=== PATIENT | female | born 1975 | race Caucasian/White ===

== ENCOUNTER 2017-12-28 07:15 | Inpatient (IN) | payer MEDICAID ==
[~2017-12-28] VITALS: Ht 160 cm; Wt 67.1 kg
[2017-12-28] VITALS (18 sets, daily range): BP systolic 95–116; BP diastolic 59–82
[2017-12-28] MEDS ORDERED: normal saline 1000ML IV soln IVB ONE (07:30)
[2017-12-28 07:53] LABS: HEMOGLOBIN 8.5 g/dl (12.0-16.0); MEAN CORPUSCULAR HGB CONC 33.8 % (33.0-36.5); MEAN CORPUSCULAR VOLUME 88.6 FL (78-98); MEAN PLATELET VOLUME 10.2 FL (7.4-10.4); RED BLOOD COUNT 2.82 X10'6 (4.20-5.60); RED CELL DISTRIBUTION WIDTH 16.6 % (11.5-14.5); WHITE BLOOD COUNT 11.3 X10'3 (4.5-11.0)
[2017-12-28 08:06] LABS: PLATELET COUNT 44 X10'3 (140-440)
[2017-12-28 08:09] LABS: CLARITY,URINE CLOUDY (Clear); COLOR,URINE AMBER (Yellow); GLUCOSE, URINE NEGATIVE (Neg); KETONES,URINE TRACE mg/dl (Neg); LEUKOCYTE ESTERASE ,URINE MODERATE (Neg); NITRITES, URINE NEGATIVE (Neg); OCCULT BLOOD,URINE LARGE (Neg); PROTEIN,URINE 100 mg/dl (Neg)
[2017-12-28 08:11] LABS: UA COLLECTION TYPE STRAIGHT CATH
[2017-12-28 08:11] LABS: ALANINE AMINOTRANSFERASE 41 U/L (12-78); ALBUMIN 1.7 G/DL (3.4-5.0); ALKALINE PHOSPHATASE 300 IU/L (46-116); ANION GAP 16 (8-16); ASPARTATE AMINO TRANSFERASE 107 U/L (10-37); BILIRUBIN,TOTAL 4.7 MG/DL (0.1-1.0); BLOOD UREA NITROGEN 37 MG/DL (7-18); BUN/CREATININE RATIO 13.5 (6.6-38.0); CALCIUM 7.3 MG/DL (8.5-10.1); CHLORIDE 84 MMOL/L (99-107); CREATININE 2.75 MG/DL (0.40-0.90); GLUCOSE 92 MG/DL (70-104); SODIUM 121 MMOL/L (135-145); TOTAL CARBON DIOXIDE 21.5 MMOL/L (24-32); eGFR 19 ML/MIN
[2017-12-28 08:12] LABS: ALBUMIN/GLOBULIN RATIO 0.4 (1.1-1.5); TOTAL PROTEIN 5.7 G/DL (6.4-8.2)
[2017-12-28 08:13] LABS: ETHANOL < 0.010 GM/DL (0.0-0.010)
[2017-12-28 08:14] LABS: INR 1.9 INR; PARTIAL THROMBOPLASTIN TIME 44 SECONDS (22-32); PROTHROMBIN TIME 19.1 SECONDS (9.0-12.0)
[2017-12-28 08:15] LABS: POTASSIUM 1.7 MMOL/L (3.5-5.1)
[2017-12-28 08:15] LABS: BACTERIA,URINE 2+ /HPF (Neg); MUCUS STRANDS NONE SEEN /LPF (Neg); RBC,URINE 20-50 /HPF (0-2); SQUAMOUS EPITHELIAL CELL,UR FEW /LPF (FEW); WBC,URINE TNTC /HPF (0-4)
[2017-12-28 08:16] LABS: AMORPHOUS URATES 1+; WBC CLUMPS,URINE MODERATE /HPF (NEGATIVE)
[2017-12-28 08:19] LABS: URINE AMPHETAMINE SCREEN NEGATIVE (Neg); URINE BARBITUATE SCREEN NEGATIVE (Neg); URINE BENZODIAZEPINES SCREEN NEGATIVE (Neg); URINE CANNABINOID SCREEN NEGATIVE (Neg); URINE COCAINE SCREEN NEGATIVE (Neg); URINE METHADONE SCREEN NEGATIVE (Neg); URINE OPIATE SCREEN NEGATIVE (Neg); URINE PHENCYCLIDINE SCREEN NEGATIVE (Neg)
[2017-12-28] MEDS: potassium 10mEq/100ml NS w/LIDOcaine (10mg/bag) IV SCH ×2 (08:25→09:19)
[2017-12-28 08:32] LABS: TOTAL CELLS COUNTED 100
[2017-12-28 08:33] LABS: ANISOCYTOSIS 1+; HYPOCHROMASIA 1+; PLATELET ESTIMATE DECREASED; POLYCHROMASIA 1+; ROULEAUX 1+; TARGET CELLS 2+
[2017-12-28] MEDS ORDERED: 0.9 % SODIUM CHLORIDE 10 ML VIAL ONE (09:00)
[2017-12-28] MEDS ORDERED: etomidate 2mg/ml inj. ONE (09:00)
[2017-12-28] MEDS ORDERED: magnesium 4gm in 100ml NS 100 ML IV PRN (10:35)
[2017-12-28] MEDS ORDERED: potassium Cl 40MEQ/NS 500ml 500 ML IV PRN (10:35)
[2017-12-28] MEDS ORDERED: magnesium 1gm/100ml D5W IVPB 100 ML IV PRN (10:35)
[2017-12-28] MEDS ORDERED: thiamine 100mg/ml 2ml inj. IV ONE (10:35)
[2017-12-28] MEDS ORDERED: cefTRIAXone 1g/NS 100ml IVPB 100 ML IV SCH (10:50)
[2017-12-28 10:52] LABS: MAGNESIUM 1.3 MG/DL (1.5-2.4)
[2017-12-28 11:22] LABS: LIPASE < 50 U/L (73-393)
[2017-12-28] MEDS ORDERED: CefTRIAXone/D5W-Rocephin 1gm 50 ML IV ONE (11:22)
[2017-12-28 11:23] LABS: PHOSPHORUS 3.2 MG/DL (2.3-4.5)
[2017-12-28] MEDS: K, MAG and/or Phos replacement - Verify level? MC SCH (11:27)
[2017-12-28] MEDS ORDERED: normal saline 1000ml 1,000 ML IV ONE (12:15)
[2017-12-28] MEDS ORDERED: vancomycin/NS 1 GM ADD-VANTAGE 250 ML IV ONE (12:15)
[2017-12-28] MEDS ORDERED: NORepinephrine 8mg/ 250ml NS 250 ML IV ONE (12:24)
[2017-12-28] MEDS ORDERED: Lactulose Enema **for rectal use only RC PRN ×2 (12:30)
[2017-12-28] MEDS: normal saline 1000ml 1,000 ML IV SCH (12:55)
[2017-12-28] MEDS ORDERED: fentaNYL/PF 50MCG/1 ML 2ML syringe IV PRN (12:55)
[2017-12-28] MEDS ORDERED: NORepinephrine 8mg/ 250ml NS 250 ML IV PRN (13:18)
[2017-12-28] MEDS: FENTANYL-0.9 % NACL/PF 100 ML IV PRN (13:32)
[2017-12-28] MEDS ORDERED: piperacillin/tazo 3.375gm/50ml 50 ML IV SCH (14:00)
[2017-12-28] MEDS: potassium Cl 40MEQ/NS 500ml 500 ML IV PRN ×2 (14:02→18:00)
[2017-12-28] MEDS: octreotide inj. 1,250 MCG in normal saline 250ml IV soln 243.75 ML IV SCH (14:02)
[2017-12-28] MEDS: pantoprazole 40MG/NS 100ML BAG 100 ML IV SCH ×2 (14:20→20:19)
[2017-12-28 14:50] LABS: OXYGEN SATURATION (MIXED VEN) 68.2 % (60-80); PO2 MIXED VENOUS (TEMP COR) 39.1 mmHg (35-46)
[2017-12-28] MEDS: lactulose 20gm/30ml cup PO SCH ×2 (16:09→20:19)
[2017-12-28] MEDS ORDERED: BUSP10TA11 PO (18:25)
[2017-12-28] MEDS ORDERED: LEVO50TA66 PO (18:25)
[2017-12-28] MEDS ORDERED: PROP10TA10 PO (18:25)
[2017-12-28] MEDS ORDERED: FOLI0.4T2 PO (18:25)
[2017-12-28] MEDS ORDERED: LIDO700A47 TD (18:30)
[2017-12-28] MEDS ORDERED: FAMO40TA7 PO (18:30)
[2017-12-28] MEDS ORDERED: ONDA8TAB12 PO (18:30)
[2017-12-28] MEDS ORDERED: TRAM50TA2 PO (18:30)
[2017-12-28] MEDS ORDERED: SPIR25TA5 PO (18:30)
[2017-12-28] MEDS: magnesium 1gm/100ml D5W IVPB 100 ML IV SCH ×2 (20:20→20:22)
[2017-12-28] MEDS: piperacillin-tazo 2.25gm/50ml 50 ML IV SCH (20:22)
[2017-12-28 21:39] LABS: ALANINE AMINOTRANSFERASE 34 U/L (12-78); ALBUMIN 1.6 G/DL (3.4-5.0); ALKALINE PHOSPHATASE 259 IU/L (46-116); ANION GAP 13 (8-16); ASPARTATE AMINO TRANSFERASE 90 U/L (10-37); BILIRUBIN,TOTAL 4.9 MG/DL (0.1-1.0); BLOOD UREA NITROGEN 35 MG/DL (7-18); BUN/CREATININE RATIO 15.4 (6.6-38.0); CALCIUM 6.3 MG/DL (8.5-10.1); CHLORIDE 96 MMOL/L (99-107); CREATININE 2.27 MG/DL (0.40-0.90); GLUCOSE 94 MG/DL (70-104); MAGNESIUM 1.4 MG/DL (1.5-2.4); SODIUM 131 MMOL/L (135-145); TOTAL CARBON DIOXIDE 21.7 MMOL/L (24-32); eGFR 24 ML/MIN
[2017-12-28 21:40] LABS: ALBUMIN/GLOBULIN RATIO 0.4 (1.1-1.5); TOTAL PROTEIN 5.2 G/DL (6.4-8.2)
[2017-12-28 21:47] LABS: POTASSIUM 2.4 MMOL/L (3.5-5.1)
[2017-12-28] MEDS: potassium Cl 40MEQ/250ML bag 250 ML IV PRN (22:30)
[2017-12-29] VITALS (23 sets, daily range): BP systolic 83–112; BP diastolic 54–84
[2017-12-29] MEDS: potassium Cl 40MEQ/250ML bag 250 ML IV PRN ×5 (00:30→13:07)
[2017-12-29] MEDS: lactulose 20gm/30ml cup PO SCH ×4 (01:25→19:16)
[2017-12-29] MEDS: piperacillin-tazo 2.25gm/50ml 50 ML IV SCH ×4 (01:25→19:17)
[2017-12-29] MEDS: pantoprazole 40MG/NS 100ML BAG 100 ML IV SCH ×3 (01:25→11:29)
[2017-12-29 02:28] LABS: HEMOGLOBIN 8.2 g/dl (12.0-16.0); MEAN CORPUSCULAR HEMOGLOBIN 29.8 PG (27.0-31.0); MEAN CORPUSCULAR HGB CONC 34.3 % (33.0-36.5); MEAN CORPUSCULAR VOLUME 86.9 FL (78-98); MEAN PLATELET VOLUME 9.5 FL (7.4-10.4); RED BLOOD COUNT 2.76 X10'6 (4.20-5.60); RED CELL DISTRIBUTION WIDTH 17.6 % (11.5-14.5); WHITE BLOOD COUNT 7.6 X10'3 (4.5-11.0)
[2017-12-29 03:06] LABS: ABG BASE EXCESS -8.5 mmol/L (-2.0-3.0); ABG HCO3 15.1 mmol/L (22.0-26.0); ABG OXYGEN SATURATION 95.6 % (95-98); ABG PCO2 (T) 23.2 mmHg (32.0-45.0); ABG PH (T) 7.425 (7.350-7.450); ABG PO2 (T) 92.1 mmHg (83-108); ALLEN'S TEST Positive; FCOHb 0.2 % (0.5-1.5); FMetHb 0.3 % (0.3-1.12); FO2Hb 95.1 % (94-100); MINUTE VOLUME 10 L/min; PATIENT TEMPERATURE 35.6; PEEP 5 cm H2O; RESPIRATORY RATE 16 b/min; RESPIRATORY RATE (OBSERVED) 21 b/min; TIDAL VOLUME 350 mL; TOTAL HEMOGLOBIN 8.5 G/dl (12.0-16.0)
[2017-12-29 03:10] LABS: PLATELET COUNT 30 X10'3 (140-440)
[2017-12-29] MEDS: normal saline 1000ml 1,000 ML IV SCH ×2 (03:13→14:03)
[2017-12-29 03:40] LABS: BASOPHILS % (AUTO) 0 % (0-1); EOSINOPHILS # (AUTO) 0.1 X10'3 (0-0.9); HEMATOCRIT 24.6 % (35.0-45.0); HEMOGLOBIN 8.4 g/dl (12.0-16.0); LYMPHOCYTES # (AUTO) 1.8 X10'3 (1.1-4.8); LYMPHOCYTES % (AUTO) 23.5 % (21-51); MEAN CORPUSCULAR HEMOGLOBIN 29.5 PG (27.0-31.0); MEAN CORPUSCULAR HGB CONC 34.1 % (33.0-36.5); MEAN CORPUSCULAR VOLUME 86.3 FL (78-98); MEAN PLATELET VOLUME 10.2 FL (7.4-10.4); MONOCYTES # (AUTO) 0.3 X10'3 (0-0.9); MONOCYTES % (AUTO) 4.3 % (2-12); NEUTROPHILS # (AUTO) 5.6 X10'3 (1.8-7.7); NEUTROPHILS % (AUTO) 71.2 % (42-75); RED BLOOD COUNT 2.85 X10'6 (4.20-5.60); RED CELL DISTRIBUTION WIDTH 17.4 % (11.5-14.5); WHITE BLOOD COUNT 7.8 X10'3 (4.5-11.0)
[2017-12-29 03:45] LABS: PLATELET COUNT 32 X10'3 (140-440)
[2017-12-29 03:46] LABS: INR 1.8 INR; PARTIAL THROMBOPLASTIN TIME 45 SECONDS (22-32); PROTHROMBIN TIME 17.9 SECONDS (9.0-12.0)
[2017-12-29 03:52] LABS: ALANINE AMINOTRANSFERASE 36 U/L (12-78); ALBUMIN 1.5 G/DL (3.4-5.0); ALBUMIN/GLOBULIN RATIO 0.4 (1.1-1.5); ALKALINE PHOSPHATASE 250 IU/L (46-116); ANION GAP 11 (8-16); ASPARTATE AMINO TRANSFERASE 71 U/L (10-37); BILIRUBIN,TOTAL 5.1 MG/DL (0.1-1.0); BLOOD UREA NITROGEN 33 MG/DL (7-18); BUN/CREATININE RATIO 14.3 (6.6-38.0); CALCIUM 6.8 MG/DL (8.5-10.1); CHLORIDE 100 MMOL/L (99-107); CREATININE 2.31 MG/DL (0.40-0.90); GLUCOSE 112 MG/DL (70-104); MAGNESIUM 2.3 MG/DL (1.5-2.4); PHOSPHORUS 2.5 MG/DL (2.3-4.5); POTASSIUM 3.3 MMOL/L (3.5-5.1); SODIUM 130 MMOL/L (135-145); TOTAL PROTEIN 5.1 G/DL (6.4-8.2); eGFR 23 ML/MIN
[2017-12-29] MEDS ORDERED: pantoprazole 40 MG vial IV SCH (08:00)
[2017-12-29] MEDS: K, MAG and/or Phos replacement - Verify level? MC SCH (08:00)
[2017-12-29] MEDS: CefTRIAXone/D5W-Rocephin 1gm 50 ML IV SCH (08:54)
[2017-12-29] MEDS: albumin (Human) 5% 250 ML IV solution IV SCH ×3 (08:55→20:55)
[2017-12-29] MEDS: FENTANYL-0.9 % NACL/PF 100 ML IV PRN (10:12)
[2017-12-29 10:21] LABS: LACTIC SEPSIS 1.2 MMOL/L (0.4-2.0)
[2017-12-29] MEDS: octreotide inj. 1,250 MCG in normal saline 250ml IV soln 243.75 ML IV SCH ×2 (13:15→19:17)
[2017-12-29] MEDS: mineral oil/petrolatum ophthal oint EACHEYE SCH ×2 (14:00→19:16)
[2017-12-29] MEDS: dextrose 50%-water 50ml dispensing syringe IV PRN (14:34)
[2017-12-29] MEDS: thiamine inj. 100 MG, MVI, adult No.4 with vit. K 10 ML in dextrose 5% water 500ml 489 ML IV SCH ×3 (14:42)
[2017-12-29] MEDS: vancomycin/NS 1 GM ADD-VANTAGE 250 ML IV SCH (17:47)
[2017-12-29 19:14] LABS: HEMATOCRIT 23.6 % (35.0-45.0); MEAN CORPUSCULAR HEMOGLOBIN 29.7 PG (27.0-31.0); MEAN CORPUSCULAR HGB CONC 33.9 % (33.0-36.5); MEAN CORPUSCULAR VOLUME 87.6 FL (78-98); MEAN PLATELET VOLUME 10.2 FL (7.4-10.4); RED CELL DISTRIBUTION WIDTH 18.6 % (11.5-14.5); WHITE BLOOD COUNT 7.6 X10'3 (4.5-11.0)
[2017-12-29] MEDS: pantoprazole 40 MG vial IV SCH (19:17)
[2017-12-29 19:22] LABS: PLATELET COUNT 28 X10'3 (140-440)
[2017-12-30] VITALS (31 sets, daily range): BP systolic 85–121; BP diastolic 43–87
[2017-12-30] MEDS: mineral oil/petrolatum ophthal oint EACHEYE SCH ×4 (02:14→20:01)
[2017-12-30] MEDS: lactulose 20gm/30ml cup PO SCH ×4 (02:15→20:02)
[2017-12-30] MEDS: normal saline 1000ml 1,000 ML IV SCH ×2 (02:15→22:25)
[2017-12-30] MEDS: piperacillin-tazo 2.25gm/50ml 50 ML IV SCH ×4 (02:15→20:02)
[2017-12-30 02:44] LABS: HEMATOCRIT 23.4 % (35.0-45.0); HEMOGLOBIN 7.9 g/dl (12.0-16.0); MEAN CORPUSCULAR HEMOGLOBIN 29.8 PG (27.0-31.0); MEAN CORPUSCULAR HGB CONC 33.8 % (33.0-36.5); MEAN CORPUSCULAR VOLUME 88.1 FL (78-98); MEAN PLATELET VOLUME 9.4 FL (7.4-10.4); RED BLOOD COUNT 2.66 X10'6 (4.20-5.60); RED CELL DISTRIBUTION WIDTH 18.4 % (11.5-14.5); WHITE BLOOD COUNT 7.6 X10'3 (4.5-11.0)
[2017-12-30 02:57] LABS: INR 2.2 INR; PARTIAL THROMBOPLASTIN TIME 56 SECONDS (22-32); PROTHROMBIN TIME 21.7 SECONDS (9.0-12.0)
[2017-12-30 03:02] LABS: ALANINE AMINOTRANSFERASE 33 U/L (12-78); ALKALINE PHOSPHATASE 242 IU/L (46-116); ANION GAP 17 (8-16); ASPARTATE AMINO TRANSFERASE 95 U/L (10-37); BLOOD UREA NITROGEN 27 MG/DL (7-18); BUN/CREATININE RATIO 13.8 (6.6-38.0); CHLORIDE 102 MMOL/L (99-107); CREATININE 1.95 MG/DL (0.40-0.90); GLUCOSE 145 MG/DL (70-104); MAGNESIUM 1.7 MG/DL (1.5-2.4); POTASSIUM 3.9 MMOL/L (3.5-5.1); SODIUM 136 MMOL/L (135-145); TOTAL CARBON DIOXIDE 16.7 MMOL/L (24-32); eGFR 28 ML/MIN
[2017-12-30 03:03] LABS: ALBUMIN/GLOBULIN RATIO 0.6 (1.1-1.5); PHOSPHORUS 1.8 MG/DL (2.3-4.5); TOTAL PROTEIN 5.5 G/DL (6.4-8.2)
[2017-12-30 03:07] LABS: PLATELET COUNT 30 X10'3 (140-440)
[2017-12-30 03:40] LABS: ABG BASE EXCESS -9.2 mmol/L (-2.0-3.0); ABG HCO3 13.6 mmol/L (22.0-26.0); ABG OXYGEN SATURATION 95.3 % (95-98); ABG PCO2 (T) 20.8 mmHg (32.0-45.0); ABG PH (T) 7.434 (7.350-7.450); ALLEN'S TEST Positive; FCOHb 0.6 % (0.5-1.5); FMetHb 0.3 % (0.3-1.12); FO2Hb 94.4 % (94-100); PATIENT TEMPERATURE 37.2; TOTAL HEMOGLOBIN 8.5 G/dl (12.0-16.0)
[2017-12-30 05:20] LABS: ANISOCYTOSIS 2+; PLATELET ESTIMATE DECREASED; TOTAL CELLS COUNTED 100
[2017-12-30 05:27] LABS: BURR CELLS 1+; TARGET CELLS 1+
[2017-12-30] MEDS: K, MAG and/or Phos replacement - Verify level? MC SCH (08:00)
[2017-12-30] MEDS: pantoprazole 40 MG vial IV SCH (08:16)
[2017-12-30] MEDS: thiamine inj. 100 MG, MVI, adult No.4 with vit. K 10 ML in dextrose 5% water 500ml 489 ML IV SCH ×3 (08:16)
[2017-12-30] MEDS: CefTRIAXone/D5W-Rocephin 1gm 50 ML IV SCH (09:05)
[2017-12-30] MEDS: albumin (Human) 5% 250 ML IV solution IV SCH ×3 (09:45→20:02)
[2017-12-30 10:56] LABS: HEMATOCRIT 22.4 % (35.0-45.0); HEMOGLOBIN 7.7 g/dl (12.0-16.0); MEAN CORPUSCULAR HEMOGLOBIN 29.8 PG (27.0-31.0); MEAN CORPUSCULAR HGB CONC 34.3 % (33.0-36.5); MEAN CORPUSCULAR VOLUME 86.9 FL (78-98); MEAN PLATELET VOLUME 9.8 FL (7.4-10.4); RED BLOOD COUNT 2.58 X10'6 (4.20-5.60); WHITE BLOOD COUNT 7.4 X10'3 (4.5-11.0)
[2017-12-30 10:59] LABS: PLATELET COUNT 27 X10'3 (140-440)
[2017-12-30] MEDS: pantoprazole 40MG/NS 100ML BAG 100 ML IV SCH ×3 (13:29→22:27)
[2017-12-30] MEDS ORDERED: fentaNYL/PF 50MCG/1 ML 2ML syringe ONE (14:10)
[2017-12-30] MEDS ORDERED: MIDAZolam 5mg/5ml vial ONE (14:10)
[2017-12-30] MEDS ORDERED: LIDOcaine Viscous 15ml cup ONE (14:10)
[2017-12-30] MEDS: vancomycin/NS 1 GM ADD-VANTAGE 250 ML IV SCH (17:56)
[2017-12-30 17:57] LABS: HEMATOCRIT 22.6 % (35.0-45.0); HEMOGLOBIN 7.8 g/dl (12.0-16.0); MEAN CORPUSCULAR HEMOGLOBIN 29.8 PG (27.0-31.0); MEAN CORPUSCULAR HGB CONC 34.5 % (33.0-36.5); MEAN CORPUSCULAR VOLUME 86.5 FL (78-98); MEAN PLATELET VOLUME 10.5 FL (7.4-10.4); RED BLOOD COUNT 2.61 X10'6 (4.20-5.60); RED CELL DISTRIBUTION WIDTH 18.6 % (11.5-14.5); WHITE BLOOD COUNT 5.7 X10'3 (4.5-11.0)
[2017-12-30 18:02] LABS: PLATELET COUNT 19 X10'3 (140-440)
[2017-12-30] MEDS: octreotide inj. 1,250 MCG in normal saline 250ml IV soln 243.75 ML IV SCH (18:08)
[2017-12-30] MEDS: FENTANYL-0.9 % NACL/PF 100 ML IV PRN (18:43)
[2017-12-31] VITALS (29 sets, daily range): BP systolic 98–140; BP diastolic 59–90
[2017-12-31] MEDS: pantoprazole 40MG/NS 100ML BAG 100 ML IV SCH ×4 (02:29→19:17)
[2017-12-31] MEDS: piperacillin-tazo 2.25gm/50ml 50 ML IV SCH ×2 (02:29→08:25)
[2017-12-31] MEDS: lactulose 20gm/30ml cup PO SCH ×4 (02:29→23:32)
[2017-12-31] MEDS: dextrose 50%-water 50ml dispensing syringe IV PRN (02:30)
[2017-12-31] MEDS: mineral oil/petrolatum ophthal oint EACHEYE SCH ×4 (02:30→20:00)
[2017-12-31 02:41] LABS: BASOPHILS % (AUTO) 0.1 % (0-1); EOSINOPHILS % (AUTO) 0.5 % (0-6); LYMPHOCYTES # (AUTO) 2.2 X10'3 (1.1-4.8); LYMPHOCYTES % (AUTO) 37.9 % (21-51); MEAN CORPUSCULAR HEMOGLOBIN 29.5 PG (27.0-31.0); MEAN CORPUSCULAR HGB CONC 33.6 % (33.0-36.5); MEAN PLATELET VOLUME 8.6 FL (7.4-10.4); MONOCYTES # (AUTO) 0.3 X10'3 (0-0.9); MONOCYTES % (AUTO) 5.4 % (2-12); NEUTROPHILS # (AUTO) 3.2 X10'3 (1.8-7.7); NEUTROPHILS % (AUTO) 56.1 % (42-75); PLATELET COUNT 73 X10'3 (140-440); RED CELL DISTRIBUTION WIDTH 19.3 % (11.5-14.5); WHITE BLOOD COUNT 5.8 X10'3 (4.5-11.0)
[2017-12-31 02:48] LABS: HEMOGLOBIN 6.8 g/dl (12.0-16.0)
[2017-12-31 02:49] LABS: HEMATOCRIT 20.2 % (35.0-45.0); MEAN CORPUSCULAR VOLUME 87.9 FL (78-98)
[2017-12-31 02:50] LABS: INR 1.8 INR; PARTIAL THROMBOPLASTIN TIME 50 SECONDS (22-32); PROTHROMBIN TIME 18.5 SECONDS (9.0-12.0)
[2017-12-31 03:04] LABS: ALANINE AMINOTRANSFERASE 30 U/L (12-78); ALBUMIN 2.2 G/DL (3.4-5.0); ALKALINE PHOSPHATASE 206 IU/L (46-116); ANION GAP 12 (8-16); ASPARTATE AMINO TRANSFERASE 87 U/L (10-37); BILIRUBIN,TOTAL 10.7 MG/DL (0.1-1.0); BLOOD UREA NITROGEN 20 MG/DL (7-18); BUN/CREATININE RATIO 14.2 (6.6-38.0); CALCIUM 7.5 MG/DL (8.5-10.1); CREATININE 1.41 MG/DL (0.40-0.90); GLUCOSE 65 MG/DL (70-104); MAGNESIUM 1.4 MG/DL (1.5-2.4); SODIUM 143 MMOL/L (135-145); TOTAL CARBON DIOXIDE 18.7 MMOL/L (24-32); eGFR 41 ML/MIN
[2017-12-31 03:07] LABS: ALBUMIN/GLOBULIN RATIO 0.7 (1.1-1.5); PHOSPHORUS 1.9 MG/DL (2.3-4.5); TOTAL PROTEIN 5.3 G/DL (6.4-8.2)
[2017-12-31 03:29] LABS: CHLORIDE 112 MMOL/L (99-107)
[2017-12-31] MEDS: potassium Cl 40MEQ/250ML bag 250 ML IV PRN ×2 (03:42→05:41)
[2017-12-31 05:05] LABS: ABG BASE EXCESS -8.7 mmol/L (-2.0-3.0); ABG HCO3 14.1 mmol/L (22.0-26.0); ABG PCO2 (T) 21.9 mmHg (32.0-45.0); ABG PO2 (T) 81.8 mmHg (83-108); FCOHb 0.5 % (0.5-1.5); FMetHb 0.3 % (0.3-1.12); FO2Hb 94.2 % (94-100); MINUTE VOLUME 14 L/min; PATIENT TEMPERATURE 37.3; PEEP 5 cm H2O; RESPIRATORY RATE (OBSERVED) 16 b/min; TOTAL HEMOGLOBIN 8.9 G/dl (12.0-16.0)
[2017-12-31] MEDS: K, MAG and/or Phos replacement - Verify level? MC SCH (08:00)
[2017-12-31] MEDS: CefTRIAXone/D5W-Rocephin 1gm 50 ML IV SCH (08:17)
[2017-12-31] MEDS: albumin (Human) 5% 250 ML IV solution IV SCH ×3 (08:18→20:02)
[2017-12-31] MEDS: thiamine inj. 100 MG, MVI, adult No.4 with vit. K 10 ML in dextrose 5% water 500ml 489 ML IV SCH ×3 (08:29)
[2017-12-31 10:12] LABS: HEMATOCRIT 28.4 % (35.0-45.0); HEMOGLOBIN 9.5 g/dl (12.0-16.0); MEAN CORPUSCULAR HEMOGLOBIN 28.7 PG (27.0-31.0); MEAN CORPUSCULAR HGB CONC 33.4 % (33.0-36.5); MEAN CORPUSCULAR VOLUME 85.7 FL (78-98); MEAN PLATELET VOLUME 8.6 FL (7.4-10.4); PLATELET COUNT 54 X10'3 (140-440); RED BLOOD COUNT 3.31 X10'6 (4.20-5.60); RED CELL DISTRIBUTION WIDTH 18.1 % (11.5-14.5); WHITE BLOOD COUNT 6.7 X10'3 (4.5-11.0)
[2017-12-31] MEDS: normal saline 1000ml 1,000 ML IV SCH (15:07)
[2017-12-31] MEDS ORDERED: VANCOMYCIN LEVEL IV ONE (16:30)
[2017-12-31 17:02] LABS: HEMATOCRIT 25.9 % (35.0-45.0); HEMOGLOBIN 8.9 g/dl (12.0-16.0); MEAN CORPUSCULAR HEMOGLOBIN 28.8 PG (27.0-31.0); MEAN CORPUSCULAR HGB CONC 34.5 % (33.0-36.5); MEAN CORPUSCULAR VOLUME 83.6 FL (78-98); MEAN PLATELET VOLUME 8.8 FL (7.4-10.4); RED CELL DISTRIBUTION WIDTH 18.8 % (11.5-14.5); WHITE BLOOD COUNT 6.5 X10'3 (4.5-11.0)
[2017-12-31 17:06] LABS: PLATELET COUNT 49 X10'3 (140-440)
[2017-12-31] MEDS: lactobacillus rhamnosus 10,000 MMU CELLS/CAPSULE PO SCH (20:00)
[2018-01-01] VITALS (23 sets, daily range): BP systolic 107–179; BP diastolic 64–93
[2018-01-01] MEDS: pantoprazole 40MG/NS 100ML BAG 100 ML IV SCH ×5 (01:10→21:09)
[2018-01-01] MEDS: mineral oil/petrolatum ophthal oint EACHEYE SCH ×3 (02:00→14:00)
[2018-01-01 02:36] LABS: HEMATOCRIT 26.6 % (35.0-45.0); HEMOGLOBIN 9.1 g/dl (12.0-16.0); MEAN CORPUSCULAR HEMOGLOBIN 28.9 PG (27.0-31.0); MEAN CORPUSCULAR HGB CONC 34.1 % (33.0-36.5); MEAN CORPUSCULAR VOLUME 84.6 FL (78-98); MEAN PLATELET VOLUME 8.7 FL (7.4-10.4); RED BLOOD COUNT 3.15 X10'6 (4.20-5.60); RED CELL DISTRIBUTION WIDTH 19.5 % (11.5-14.5); WHITE BLOOD COUNT 6.1 X10'3 (4.5-11.0)
[2018-01-01] MEDS: normal saline 1000ml 1,000 ML IV SCH ×2 (02:43→16:58)
[2018-01-01 02:47] LABS: INR 1.8 INR; PARTIAL THROMBOPLASTIN TIME 53 SECONDS (22-32); PROTHROMBIN TIME 17.8 SECONDS (9.0-12.0)
[2018-01-01 02:49] LABS: PLATELET COUNT 44 X10'3 (140-440)
[2018-01-01 02:50] LABS: ALANINE AMINOTRANSFERASE 33 U/L (12-78); ALBUMIN 2.4 G/DL (3.4-5.0); ALKALINE PHOSPHATASE 196 IU/L (46-116); ANION GAP 13 (8-16); ASPARTATE AMINO TRANSFERASE 82 U/L (10-37); BLOOD UREA NITROGEN 12 MG/DL (7-18); BUN/CREATININE RATIO 14.3 (6.6-38.0); CALCIUM 7.6 MG/DL (8.5-10.1); CHLORIDE 115 MMOL/L (99-107); CREATININE 0.84 MG/DL (0.40-0.90); GLUCOSE 76 MG/DL (70-104); MAGNESIUM 1.9 MG/DL (1.5-2.4); SODIUM 146 MMOL/L (135-145); TOTAL CARBON DIOXIDE 18.1 MMOL/L (24-32); eGFR 74 ML/MIN
[2018-01-01 02:53] LABS: ALBUMIN/GLOBULIN RATIO 0.8 (1.1-1.5); PHOSPHORUS 1.6 MG/DL (2.3-4.5); TOTAL PROTEIN 5.3 G/DL (6.4-8.2)
[2018-01-01 02:55] LABS: POTASSIUM 2.9 MMOL/L (3.5-5.1)
[2018-01-01] MEDS: potassium Cl 40MEQ/250ML bag 250 ML IV PRN ×2 (03:09→07:23)
[2018-01-01 03:13] LABS: TOTAL CELLS COUNTED 100
[2018-01-01 03:14] LABS: PLATELET ESTIMATE DECREASED
[2018-01-01 03:15] LABS: ANISOCYTOSIS 2+; BURR CELLS 2+; TARGET CELLS FEW
[2018-01-01] MEDS ORDERED: dextrose ORAL solution 15 GM/59 ML bottle PO PRN (07:40)
[2018-01-01] MEDS ORDERED: dextrose 50%-water 50ml dispensing syringe IV PRN ×2 (07:40)
[2018-01-01] MEDS ORDERED: glucagon, human recombinant 1mg kit SUBCUT PRN (07:40)
[2018-01-01] MEDS: dextrose ORAL solution 15 GM/59 ML bottle PO PRN (07:44)
[2018-01-01] MEDS: K, MAG and/or Phos replacement - Verify level? MC SCH (08:00)
[2018-01-01] MEDS: CefTRIAXone/D5W-Rocephin 1gm 50 ML IV SCH (08:48)
[2018-01-01] MEDS: lactulose 20gm/30ml cup PO SCH ×2 (08:48→19:46)
[2018-01-01] MEDS: lactobacillus rhamnosus 10,000 MMU CELLS/CAPSULE PO SCH ×2 (08:48→19:47)
[2018-01-01] MEDS: thiamine inj. 100 MG, MVI, adult No.4 with vit. K 10 ML in dextrose 5% water 500ml 489 ML IV SCH ×3 (08:48)
[2018-01-01] MEDS: albumin (Human) 5% 250 ML IV solution IV SCH ×3 (08:50→21:08)
[2018-01-01 10:10] LABS: HEMATOCRIT 26.3 % (35.0-45.0); HEMOGLOBIN 8.9 g/dl (12.0-16.0); MEAN CORPUSCULAR HEMOGLOBIN 28.8 PG (27.0-31.0); MEAN CORPUSCULAR HGB CONC 33.9 % (33.0-36.5); MEAN CORPUSCULAR VOLUME 84.9 FL (78-98); MEAN PLATELET VOLUME 9.5 FL (7.4-10.4); RED BLOOD COUNT 3.09 X10'6 (4.20-5.60); RED CELL DISTRIBUTION WIDTH 19.4 % (11.5-14.5)
[2018-01-01 10:21] LABS: PLATELET COUNT 43 X10'3 (140-440)
[2018-01-01 17:27] LABS: HEMATOCRIT 23.4 % (35.0-45.0); HEMOGLOBIN 7.9 g/dl (12.0-16.0); MEAN CORPUSCULAR HEMOGLOBIN 28.9 PG (27.0-31.0); MEAN CORPUSCULAR HGB CONC 33.9 % (33.0-36.5); MEAN CORPUSCULAR VOLUME 85.2 FL (78-98); MEAN PLATELET VOLUME 8.6 FL (7.4-10.4); RED BLOOD COUNT 2.74 X10'6 (4.20-5.60); RED CELL DISTRIBUTION WIDTH 17.9 % (11.5-14.5); WHITE BLOOD COUNT 5.2 X10'3 (4.5-11.0)
[2018-01-01 17:34] LABS: PLATELET COUNT 30 X10'3 (140-440)
[2018-01-01] MEDS: rifaximin 550mg tablet PO SCH (19:46)
[2018-01-01] MEDS: traMADol 50MG tablet PO PRN (19:47)
[2018-01-01 23:11] LABS: HEMATOCRIT 24.3 % (35.0-45.0); HEMOGLOBIN 8.3 g/dl (12.0-16.0); MEAN CORPUSCULAR HEMOGLOBIN 28.7 PG (27.0-31.0); MEAN CORPUSCULAR HGB CONC 34.1 % (33.0-36.5); MEAN CORPUSCULAR VOLUME 84.1 FL (78-98); MEAN PLATELET VOLUME 8.5 FL (7.4-10.4); RED BLOOD COUNT 2.89 X10'6 (4.20-5.60); WHITE BLOOD COUNT 4.4 X10'3 (4.5-11.0)
[2018-01-01 23:14] LABS: PLATELET COUNT 31 X10'3 (140-440)
[2018-01-02] VITALS (20 sets, daily range): BP systolic 86–123; BP diastolic 62–85
[2018-01-02] MEDS: LORazepam 2 mg/ml vial IV PRN (00:13)
[2018-01-02] MEDS: pantoprazole 40MG/NS 100ML BAG 100 ML IV SCH ×4 (01:31→16:00)
[2018-01-02] MEDS ORDERED: furosemide 40mg/4ml inj IV ONE (02:00)
[2018-01-02 03:46] LABS: HEMATOCRIT 25.8 % (35.0-45.0); HEMOGLOBIN 8.9 g/dl (12.0-16.0); MEAN CORPUSCULAR HEMOGLOBIN 29.2 PG (27.0-31.0); MEAN CORPUSCULAR HGB CONC 34.5 % (33.0-36.5); MEAN CORPUSCULAR VOLUME 84.7 FL (78-98); MEAN PLATELET VOLUME 10.4 FL (7.4-10.4); RED BLOOD COUNT 3.04 X10'6 (4.20-5.60); RED CELL DISTRIBUTION WIDTH 19.4 % (11.5-14.5)
[2018-01-02 04:00] LABS: INR 1.7 INR; PARTIAL THROMBOPLASTIN TIME 49 SECONDS (22-32); PROTHROMBIN TIME 17.4 SECONDS (9.0-12.0)
[2018-01-02 04:03] LABS: ALANINE AMINOTRANSFERASE 33 U/L (12-78); ALBUMIN 2.5 G/DL (3.4-5.0); ALKALINE PHOSPHATASE 191 IU/L (46-116); ANION GAP 15 (8-16); BILIRUBIN,TOTAL 14.3 MG/DL (0.1-1.0); BLOOD UREA NITROGEN 9 MG/DL (7-18); BUN/CREATININE RATIO 11.4 (6.6-38.0); CALCIUM 7.6 MG/DL (8.5-10.1); CREATININE 0.79 MG/DL (0.40-0.90); GLUCOSE 59 MG/DL (70-104); MAGNESIUM 1.3 MG/DL (1.5-2.4); SODIUM 147 MMOL/L (135-145); TOTAL CARBON DIOXIDE 15.6 MMOL/L (24-32); eGFR 80 ML/MIN
[2018-01-02 04:04] LABS: ALBUMIN/GLOBULIN RATIO 0.8 (1.1-1.5); ASPARTATE AMINO TRANSFERASE 74 U/L (10-37); PHOSPHORUS 1.5 MG/DL (2.3-4.5); POTASSIUM 3.1 MMOL/L (3.5-5.1); TOTAL PROTEIN 5.6 G/DL (6.4-8.2)
[2018-01-02 04:06] LABS: CHLORIDE 116 MMOL/L (99-107); PLATELET COUNT 30 X10'3 (140-440)
[2018-01-02 04:18] LABS: TOTAL CELLS COUNTED 100
[2018-01-02 04:19] LABS: ANISOCYTOSIS 2+; BURR CELLS 2+; LARGE PLATELETS FEW; PLATELET ESTIMATE DECREASED; TARGET CELLS FEW
[2018-01-02 04:22] LABS: SCHISTOCYTES FEW
[2018-01-02] MEDS: potassium Cl 40MEQ/250ML bag 250 ML IV PRN (04:23)
[2018-01-02] MEDS: dextrose ORAL solution 15 GM/59 ML bottle PO PRN (04:26)
[2018-01-02] MEDS ORDERED: cefTRIAXone 1g/NS 100ml IVPB 100 ML IV ONE (07:40)
[2018-01-02] MEDS: lactulose 20gm/30ml cup PO SCH ×2 (07:52→19:54)
[2018-01-02] MEDS: albumin (Human) 5% 250 ML IV solution IV SCH ×3 (07:52→19:57)
[2018-01-02] MEDS: lactobacillus rhamnosus 10,000 MMU CELLS/CAPSULE PO SCH ×2 (07:53→19:53)
[2018-01-02] MEDS: rifaximin 550mg tablet PO SCH ×2 (07:56→19:54)
[2018-01-02] MEDS: K, MAG and/or Phos replacement - Verify level? MC SCH (07:57)
[2018-01-02] MEDS: CefTRIAXone/D5W-Rocephin 1gm 50 ML IV SCH (07:58)
[2018-01-02] MEDS: thiamine inj. 100 MG, MVI, adult No.4 with vit. K 10 ML in dextrose 5% water 500ml 489 ML IV SCH ×3 (08:02)
[2018-01-02] MEDS: traMADol 50MG tablet PO PRN ×2 (09:45→18:58)
[2018-01-02] MEDS ORDERED: magnesium 1gm/100ml D5W IVPB 100 ML IV PRN (11:10)
[2018-01-02] MEDS ORDERED: sodium phosphate inj. 30 MMOL in dextrose 5%-water 250 ML IV PRN (11:10)
[2018-01-02] MEDS ORDERED: sodium phosphate inj. 15 MMOL in dextrose 5%-water 150 ML IV PRN (11:10)
[2018-01-02] MEDS ORDERED: magnesium 4gm in 100ml NS 100 ML IV PRN (11:10)
[2018-01-02] MEDS: Neutra Phos packet PO PRN (11:48)
[2018-01-02] MEDS: spironolactone 25 MG tablet PO SCH ×2 (11:49→19:53)
[2018-01-02] MEDS: nystatin 15 GM powder TP SCH ×2 (13:47→19:54)
[2018-01-02] MEDS: pantoprazole 40mg Tablet.DR PO SCH (19:53)
[2018-01-03 03:00] VITALS: BP 107/77
[2018-01-03 05:59] LABS: HEMATOCRIT 23.6 % (35.0-45.0); HEMOGLOBIN 8.1 g/dl (12.0-16.0); MEAN CORPUSCULAR HEMOGLOBIN 28.9 PG (27.0-31.0); MEAN CORPUSCULAR HGB CONC 34.3 % (33.0-36.5); MEAN CORPUSCULAR VOLUME 84.3 FL (78-98); MEAN PLATELET VOLUME 9.5 FL (7.4-10.4); RED CELL DISTRIBUTION WIDTH 19.3 % (11.5-14.5); WHITE BLOOD COUNT 6.7 X10'3 (4.5-11.0)
[2018-01-03 06:15] LABS: PARTIAL THROMBOPLASTIN TIME 63 SECONDS (22-32); PROTHROMBIN TIME 20.1 SECONDS (9.0-12.0)
[2018-01-03 06:24] LABS: ALANINE AMINOTRANSFERASE 23 U/L (12-78); ALBUMIN 2.3 G/DL (3.4-5.0); ALKALINE PHOSPHATASE 153 IU/L (46-116); ANION GAP 11 (8-16); ASPARTATE AMINO TRANSFERASE 51 U/L (10-37); BILIRUBIN,TOTAL 12.5 MG/DL (0.1-1.0); BLOOD UREA NITROGEN 12 MG/DL (7-18); CALCIUM 7.5 MG/DL (8.5-10.1); CHLORIDE 119 MMOL/L (99-107); GLUCOSE 68 MG/DL (70-104); MAGNESIUM 1.4 MG/DL (1.5-2.4); SODIUM 145 MMOL/L (135-145); TOTAL CARBON DIOXIDE 15.5 MMOL/L (24-32); eGFR 79 ML/MIN
[2018-01-03 06:25] LABS: ALBUMIN/GLOBULIN RATIO 0.8 (1.1-1.5); PHOSPHORUS 1.7 MG/DL (2.3-4.5); POTASSIUM 3.3 MMOL/L (3.5-5.1); TOTAL PROTEIN 5.3 G/DL (6.4-8.2)
[2018-01-03 07:01] VITALS: BP 100/70
[2018-01-03 07:37] LABS: PLATELET COUNT 24 X10'3 (140-440)
[2018-01-03 07:40] LABS: ANISOCYTOSIS 2+; PLATELET ESTIMATE DECREASED; TOTAL CELLS COUNTED 100
[2018-01-03 07:41] LABS: SCHISTOCYTES FEW
[2018-01-03] MEDS: spironolactone 25 MG tablet PO SCH ×2 (07:55→20:07)
[2018-01-03] MEDS: thiamine inj. 100 MG, MVI, adult No.4 with vit. K 10 ML in dextrose 5% water 500ml 489 ML IV SCH ×3 (08:00)
[2018-01-03] MEDS: CefTRIAXone/D5W-Rocephin 1gm 50 ML IV SCH ×2 (08:30→08:55)
[2018-01-03] MEDS: pantoprazole 40mg Tablet.DR PO SCH ×2 (08:35→20:08)
[2018-01-03] MEDS: nystatin 15 GM powder TP SCH ×3 (08:35→20:20)
[2018-01-03] MEDS: lactobacillus rhamnosus 10,000 MMU CELLS/CAPSULE PO SCH ×2 (08:35→20:08)
[2018-01-03] MEDS: rifaximin 550mg tablet PO SCH ×2 (08:35→20:08)
[2018-01-03] MEDS: lactulose 20gm/30ml cup PO SCH ×2 (08:35→20:07)
[2018-01-03] MEDS: K, MAG and/or Phos replacement - Verify level? MC SCH (08:37)
[2018-01-03] MEDS: albumin (Human) 5% 250 ML IV solution IV SCH ×2 (08:46→20:10)
[2018-01-03 11:00] VITALS: BP 112/82
[2018-01-03 15:00] VITALS: BP 105/89
[2018-01-03 18:00] VITALS: BP 109/78
[2018-01-03] MEDS: LORazepam 2 mg/ml vial IV PRN (21:52)
[2018-01-03] MEDS: traMADol 50MG tablet PO PRN (21:53)
[2018-01-03] MEDS: magnesium Cl slow-release 64mg tablet PO PRN (21:54)
[2018-01-03 22:00] VITALS: BP 112/82
[2018-01-04] MEDS ORDERED: potassium Cl 20 mEq SR tablet PO PRN (01:25)
[2018-01-04] MEDS: potassium Cl 20 mEq SR tablet PO PRN ×3 (01:31→22:03)
[2018-01-04 02:00] VITALS: BP 116/84
[2018-01-04] MEDS: magnesium Cl slow-release 64mg tablet PO PRN ×3 (02:55→22:02)
[2018-01-04 07:00] VITALS: BP 124/90
[2018-01-04 07:00] LABS: HEMATOCRIT 25.7 % (35.0-45.0); HEMOGLOBIN 8.6 g/dl (12.0-16.0); MEAN CORPUSCULAR HEMOGLOBIN 28.6 PG (27.0-31.0); MEAN CORPUSCULAR HGB CONC 33.4 % (33.0-36.5); MEAN CORPUSCULAR VOLUME 85.6 FL (78-98); MEAN PLATELET VOLUME 10.2 FL (7.4-10.4); RED CELL DISTRIBUTION WIDTH 19.7 % (11.5-14.5); WHITE BLOOD COUNT 5.9 X10'3 (4.5-11.0)
[2018-01-04 07:12] LABS: PLATELET COUNT 31 X10'3 (140-440)
[2018-01-04 07:37] LABS: ANISOCYTOSIS 2+; LARGE PLATELETS FEW; PLATELET ESTIMATE DECREASED; SCHISTOCYTES FEW; TOTAL CELLS COUNTED 100
[2018-01-04 07:43] LABS: ALANINE AMINOTRANSFERASE 26 U/L (12-78); ALBUMIN 2.5 G/DL (3.4-5.0); ALKALINE PHOSPHATASE 154 IU/L (46-116); ANION GAP 17 (8-16); ASPARTATE AMINO TRANSFERASE 56 U/L (10-37); BLOOD UREA NITROGEN 12 MG/DL (7-18); BUN/CREATININE RATIO 14.1 (6.6-38.0); CALCIUM 7.6 MG/DL (8.5-10.1); CHLORIDE 116 MMOL/L (99-107); CREATININE 0.85 MG/DL (0.40-0.90); GLUCOSE 57 MG/DL (70-104); MAGNESIUM 1.4 MG/DL (1.5-2.4); SODIUM 147 MMOL/L (135-145); eGFR 73 ML/MIN
[2018-01-04 07:47] LABS: ALBUMIN/GLOBULIN RATIO 0.8 (1.1-1.5); INR 1.6 INR; PARTIAL THROMBOPLASTIN TIME 52 SECONDS (22-32); PHOSPHORUS 1.8 MG/DL (2.3-4.5); POTASSIUM 3.4 MMOL/L (3.5-5.1); PROTHROMBIN TIME 16.1 SECONDS (9.0-12.0); TOTAL PROTEIN 5.8 G/DL (6.4-8.2)
[2018-01-04 07:55] LABS: TOTAL CARBON DIOXIDE 14.2 MMOL/L (24-32)
[2018-01-04] MEDS: K, MAG and/or Phos replacement - Verify level? MC SCH (08:00)
[2018-01-04] MEDS: thiamine inj. 100 MG, MVI, adult No.4 with vit. K 10 ML in dextrose 5% water 500ml 489 ML IV SCH ×3 (08:43)
[2018-01-04] MEDS: lactulose 20gm/30ml cup PO SCH ×2 (08:43→20:08)
[2018-01-04] MEDS: pantoprazole 40mg Tablet.DR PO SCH ×2 (08:44→20:08)
[2018-01-04] MEDS: albumin (Human) 5% 250 ML IV solution IV SCH ×3 (08:44→21:56)
[2018-01-04] MEDS: lactobacillus rhamnosus 10,000 MMU CELLS/CAPSULE PO SCH ×2 (08:44→20:08)
[2018-01-04] MEDS: spironolactone 25 MG tablet PO SCH ×2 (08:44→20:08)
[2018-01-04] MEDS: nystatin 15 GM powder TP SCH ×3 (08:45→20:09)
[2018-01-04] MEDS: rifaximin 550mg tablet PO SCH ×2 (08:45→20:08)
[2018-01-04] MEDS: traMADol 50MG tablet PO PRN ×2 (09:02→22:03)
[2018-01-04] MEDS: LORazepam 2 mg/ml vial IV PRN (09:03)
[2018-01-04 11:00] VITALS: BP 114/81
[2018-01-04] MEDS ORDERED: iohexol 300mg/ml 100ml inj. ONE (12:14)
[2018-01-04 15:00] VITALS: BP 130/95
[2018-01-04 17:23] LABS: URINE AMPHETAMINE SCREEN NEGATIVE (Neg); URINE BARBITUATE SCREEN NEGATIVE (Neg); URINE BENZODIAZEPINES SCREEN NEGATIVE (Neg); URINE CANNABINOID SCREEN POSITIVE (Neg); URINE COCAINE SCREEN NEGATIVE (Neg); URINE METHADONE SCREEN NEGATIVE (Neg); URINE OPIATE SCREEN NEGATIVE (Neg); URINE PHENCYCLIDINE SCREEN NEGATIVE (Neg)
[2018-01-04 18:00] VITALS: BP 99/73
[2018-01-04 22:00] VITALS: BP 119/81
[2018-01-04] MEDS: Neutra Phos packet PO PRN (23:31)
[2018-01-05 02:00] VITALS: BP 114/84
[2018-01-05 05:57] LABS: HEMOGLOBIN 8.3 g/dl (12.0-16.0); MEAN CORPUSCULAR HGB CONC 34.7 % (33.0-36.5); MEAN CORPUSCULAR VOLUME 86.4 FL (78-98); MEAN PLATELET VOLUME 10.5 FL (7.4-10.4); RED BLOOD COUNT 2.78 X10'6 (4.20-5.60); RED CELL DISTRIBUTION WIDTH 19.6 % (11.5-14.5); WHITE BLOOD COUNT 5.5 X10'3 (4.5-11.0)
[2018-01-05 06:06] LABS: INR 1.5 INR; PARTIAL THROMBOPLASTIN TIME 46 SECONDS (22-32); PROTHROMBIN TIME 15.5 SECONDS (9.0-12.0)
[2018-01-05 06:13] LABS: ALANINE AMINOTRANSFERASE 26 U/L (12-78); ALBUMIN 2.7 G/DL (3.4-5.0); ALKALINE PHOSPHATASE 142 IU/L (46-116); ANION GAP 16 (8-16); ASPARTATE AMINO TRANSFERASE 55 U/L (10-37); BILIRUBIN,TOTAL 12.7 MG/DL (0.1-1.0); BLOOD UREA NITROGEN 11 MG/DL (7-18); BUN/CREATININE RATIO 15.3 (6.6-38.0); CHLORIDE 117 MMOL/L (99-107); CREATININE 0.72 MG/DL (0.40-0.90); GLUCOSE 66 MG/DL (70-104); MAGNESIUM 1.8 MG/DL (1.5-2.4); SODIUM 149 MMOL/L (135-145); TOTAL CARBON DIOXIDE 15.7 MMOL/L (24-32); eGFR 89 ML/MIN
[2018-01-05 06:14] LABS: PLATELET COUNT 31 X10'3 (140-440)
[2018-01-05 06:15] LABS: ALBUMIN/GLOBULIN RATIO 0.8 (1.1-1.5); PHOSPHORUS 1.9 MG/DL (2.3-4.5); POTASSIUM 3.6 MMOL/L (3.5-5.1)
[2018-01-05 06:37] LABS: ANISOCYTOSIS 2+; MICROCYTOSIS 1+; PLATELET ESTIMATE DECREASED; TOTAL CELLS COUNTED 100
[2018-01-05 06:38] LABS: ACANTHOCYTES FEW; SCHISTOCYTES 1+; TARGET CELLS FEW
[2018-01-05 06:51] VITALS: BP 121/74
[2018-01-05] MEDS: rifaximin 550mg tablet PO SCH ×2 (07:43→20:18)
[2018-01-05] MEDS: lactobacillus rhamnosus 10,000 MMU CELLS/CAPSULE PO SCH ×2 (07:43→20:18)
[2018-01-05] MEDS: thiamine 100mg tablet PO SCH (07:43)
[2018-01-05] MEDS: nystatin 15 GM powder TP SCH ×3 (07:43→20:19)
[2018-01-05] MEDS: spironolactone 25 MG tablet PO SCH ×2 (07:43→20:18)
[2018-01-05] MEDS: multivitamins, therapeutics tablet PO SCH ×2 (07:43→12:53)
[2018-01-05] MEDS: lactulose 20gm/30ml cup PO SCH (07:43)
[2018-01-05] MEDS: pantoprazole 40mg Tablet.DR PO SCH ×2 (07:43→20:18)
[2018-01-05] MEDS: albumin (Human) 5% 250 ML IV solution IV SCH ×3 (07:44→20:19)
[2018-01-05] MEDS: CefTRIAXone/D5W-Rocephin 1gm 50 ML IV SCH (07:44)
[2018-01-05] MEDS: Neutra Phos packet PO PRN (07:49)
[2018-01-05] MEDS: K, MAG and/or Phos replacement - Verify level? MC SCH (08:00)
[2018-01-05] MEDS: traMADol 50MG tablet PO PRN (11:33)
[2018-01-05 15:00] VITALS: BP 116/89
[2018-01-05] MEDS: LORazepam 2 mg/ml vial IV PRN (16:29)
[2018-01-05 19:00] VITALS: BP 109/77
[2018-01-05] MEDS: Neutra Phos packet PO SCH (20:17)
[2018-01-05 23:00] VITALS: BP 106/78
[2018-01-06 03:00] VITALS: BP 110/76
[2018-01-06 06:00] VITALS: BP 114/79
[2018-01-06 06:17] LABS: HEMATOCRIT 23.4 % (35.0-45.0); MEAN CORPUSCULAR HEMOGLOBIN 29.7 PG (27.0-31.0); MEAN CORPUSCULAR HGB CONC 34.3 % (33.0-36.5); MEAN CORPUSCULAR VOLUME 86.6 FL (78-98); RED CELL DISTRIBUTION WIDTH 18.4 % (11.5-14.5); WHITE BLOOD COUNT 5.1 X10'3 (4.5-11.0)
[2018-01-06 06:27] LABS: INR 1.5 INR; PARTIAL THROMBOPLASTIN TIME 45 SECONDS (22-32); PROTHROMBIN TIME 15.5 SECONDS (9.0-12.0)
[2018-01-06 06:41] LABS: ANION GAP 12 (8-16); BLOOD UREA NITROGEN 9 MG/DL (7-18); BUN/CREATININE RATIO 15.8 (6.6-38.0); CALCIUM 7.8 MG/DL (8.5-10.1); CHLORIDE 118 MMOL/L (99-107); CREATININE 0.57 MG/DL (0.40-0.90); GLUCOSE 71 MG/DL (70-104); SODIUM 147 MMOL/L (135-145); TOTAL CARBON DIOXIDE 17.1 MMOL/L (24-32); TOTAL CELLS COUNTED 100; eGFR > 90 ML/MIN
[2018-01-06 06:42] LABS: ALANINE AMINOTRANSFERASE 28 U/L (12-78); ALBUMIN 2.5 G/DL (3.4-5.0); ALKALINE PHOSPHATASE 120 IU/L (46-116); ASPARTATE AMINO TRANSFERASE 58 U/L (10-37); BILIRUBIN,TOTAL 11.1 MG/DL (0.1-1.0); MAGNESIUM 1.4 MG/DL (1.5-2.4)
[2018-01-06 06:44] LABS: BASOPHILS % (MANUAL) 2 % (0-1); EOSINOPHILS % (MANUAL) 1 % (0-6); LYMPHOCYTES % (MANUAL) 36 % (21-51); MONOCYTES % (MANUAL) 6 % (2-12); NEUTROPHILS % (MANUAL) 56 % (42-75)
[2018-01-06 06:45] LABS: ANISOCYTOSIS 2+; HYPOCHROMASIA 1+; PLATELET ESTIMATE DECREASED
[2018-01-06 06:46] LABS: ACANTHOCYTES 1+; ALBUMIN/GLOBULIN RATIO 0.8 (1.1-1.5); BURR CELLS 1+; POTASSIUM 3.6 MMOL/L (3.5-5.1); TARGET CELLS FEW; TOTAL PROTEIN 5.8 G/DL (6.4-8.2); TOXIC VACUOLATION 1+
[2018-01-06 06:48] LABS: PLATELET COUNT 31 X10'3 (140-440)
[2018-01-06] MEDS ORDERED: levoTHYROXINE 25mcg tablet PO SCH (07:00)
[2018-01-06] MEDS ORDERED: lactulose 20gm/30ml cup PO SCH (08:00)
[2018-01-06] MEDS: K, MAG and/or Phos replacement - Verify level? MC SCH (08:00)
[2018-01-06] MEDS ORDERED: cyanocobalamin 500mcg tablet PO SCH (08:00)
[2018-01-06] MEDS: albumin (Human) 5% 250 ML IV solution IV SCH (08:23)
[2018-01-06] MEDS: rifaximin 550mg tablet PO SCH (08:24)
[2018-01-06] MEDS: Neutra Phos packet PO SCH (08:24)
[2018-01-06] MEDS: lactobacillus rhamnosus 10,000 MMU CELLS/CAPSULE PO SCH (08:25)
[2018-01-06] MEDS: pantoprazole 40mg Tablet.DR PO SCH (08:25)
[2018-01-06] MEDS: thiamine 100mg tablet PO SCH (08:25)
[2018-01-06] MEDS: spironolactone 25 MG tablet PO SCH (08:25)
[2018-01-06] MEDS: nystatin 15 GM powder TP SCH (08:27)
[2018-01-06] MEDS: traMADol 50MG tablet PO PRN (08:39)
[2018-01-06 11:00] VITALS: BP 102/68
[2018-01-06] MEDS ORDERED: RIFA550T PO (11:31)
[2018-01-06] MEDS ORDERED: LACT10SO32 PO (11:31)
[2018-01-07 08:23] LABS: HBSAG SCREEN Negative (Negative); HEP A AB, IGM Negative (Negative); HEP B CORE AB, IGM Negative (Negative); HEPATITIS C ANTIBODY 0.1 s/co ratio (0.0-0.9)
== END 2018-01-06 14:25 | disposition home or self-care (01) | DRG 720 ==
LOC: ER 07:15 → ED HOLD 10:32 → CICU 2S 11:35 → PCU 3S 01-02 16:25
PROVIDERS: ADMIT Internal Medicine Critical Care Medicine; ATTEND Family Medicine
PROC: 5A1945Z Respiratory Ventilation, 24-96 Consecutive Hours (ICD-10-PCS; principal; 2017-12-28)
PROC: 0BH18EZ Insertion of Endotracheal Airway into Trachea, Via Natural or Artificial Opening Endoscopic (ICD-10-PCS; 2017-12-28)
PROC: 30233L1 Transfusion of Nonautologous Fresh Plasma into Peripheral Vein, Percutaneous Approach (ICD-10-PCS; 2017-12-28)
PROC: 30233N1 Transfusion of Nonautologous Red Blood Cells into Peripheral Vein, Percutaneous Approach (ICD-10-PCS; 2017-12-28)
PROC: 30233K1 Transfusion of Nonautologous Frozen Plasma into Peripheral Vein, Percutaneous Approach (ICD-10-PCS; 2017-12-28)
PROC: 02H633Z Insertion of Infusion Device into Right Atrium, Percutaneous Approach (ICD-10-PCS; 2017-12-28)
PROC: B244ZZZ Ultrasonography of Right Heart (ICD-10-PCS; 2017-12-28)
PROC: 5A09357 Assistance with Respiratory Ventilation, Less than 24 Consecutive Hours, Continuous Positive Airway Pressure (ICD-10-PCS; 2017-12-29)
PROC: 30233R1 Transfusion of Nonautologous Platelets into Peripheral Vein, Percutaneous Approach (ICD-10-PCS; 2017-12-30)
PROC: 0DJ08ZZ Inspection of Upper Intestinal Tract, Via Natural or Artificial Opening Endoscopic (ICD-10-PCS; 2017-12-30)
PROC: BW211ZZ Computerized Tomography (CT Scan) of Abdomen and Pelvis using Low Osmolar Contrast (ICD-10-PCS; 2018-01-04)
DX: A41.9 Sepsis, unspecified organism (principal); J96.90 Respiratory failure, unspecified, unspecified whether with hypoxia or hypercapnia; D61.818 Other pancytopenia; N17.9 Acute kidney failure, unspecified; E87.1 Hypo-osmolality and hyponatremia; E83.42 Hypomagnesemia; E87.0 Hyperosmolality and hypernatremia; D62 Acute posthemorrhagic anemia; K28.9 Gastrojejunal ulcer, unspecified as acute or chronic, without hemorrhage or perforation; K20.9 Esophagitis, unspecified; I85.00 Esophageal varices without bleeding; K92.1 Melena; E87.8 Other disorders of electrolyte and fluid balance, not elsewhere classified; K70.31 Alcoholic cirrhosis of liver with ascites; G31.2 Degeneration of nervous system due to alcohol; N39.0 Urinary tract infection, site not specified; E87.6 Hypokalemia; K72.90 Hepatic failure, unspecified without coma; Z98.84 Bariatric surgery status; Z79.899 Other long term (current) drug therapy; Z98.0 Intestinal bypass and anastomosis status; Z71.89 Other specified counseling
CPT/HCPCS: 36415; 36600; 70450; 71045; 74018; 74177; 76700; 80053; 80074; 80305; 80320; 81001; 82140; 82803; 82810; 82948; 83605; 83690; 83735; 84100; 84132; 84145; 84439; 84443; 85018; 85025; 85027; 85610; 85730; 86885; 86900; 86901; 86920; 87040; 87070; 87077; 87088; 87186; 92616; 93005; 94002; 94003; 94760; 96365; 97110; 97161; 97530; 99291; A4315; A6212; A6213; A6250; A6258; A6449; A9270; C1751; C1758; C9113; G0500; J0696; J1940; J2060; J2250; J2354; J2543; J3010; J3370; J3411; J3475; J3480; J3490; J7030; J7060; P9016; P9035; P9045; P9059; Q9967

== ENCOUNTER 2018-01-27 12:29 | Inpatient (IN) | payer MEDICAID ==
[2018-01-27] VITALS (18 sets, daily range): BP systolic 99–126; BP diastolic 66–84
[~2018-01-27] VITALS: Ht 162.6 cm; Wt 60.9 kg
[2018-01-27] MEDS: K, MAG and/or Phos replacement - Verify level? MC SCH (08:00)
[~2018-01-27 12:29] MED LIST: 0.9 % SODIUM CHLORIDE 10 ML VIAL ONE; BUSP10TA11 PO; FAMO40TA7 PO; FOLI0.4T2 PO; LACT10SO32 PO; LEVO50TA66 PO; LIDO700A47 TD; ONDA8TAB12 PO; PROP10TA10 PO; RIFA550T PO; SPIR25TA5 PO; TRAM50TA2 PO; dextrose 50%-water 50ml dispensing syringe IV ONE; etomidate 2mg/ml inj. ONE; rocuronium 10mg/ml inj IV ONE; thiamine 100mg tablet PO SCH
[2018-01-27] MEDS ORDERED: normal saline 1000ML IV soln IV ONE (12:40)
[2018-01-27] MEDS ORDERED: proCHLORperazine 10 MG/2 ml inj IV ONE (12:45)
[2018-01-27] MEDS ORDERED: pantoprazole IV 80 MG in normal saline 100ml IV soln 100 ML IV ONE (12:45)
[2018-01-27] MEDS ORDERED: pantoprazole 40 MG vial IV ONE (13:00)
[2018-01-27 13:10] LABS: BASOPHILS % (AUTO) 0 % (0-1); EOSINOPHILS % (AUTO) 0 % (0-6); LYMPHOCYTES # (AUTO) 1.4 X10'3 (1.1-4.8); LYMPHOCYTES % (AUTO) 10.7 % (21-51); MEAN CORPUSCULAR HEMOGLOBIN 34.9 PG (27.0-31.0); MEAN CORPUSCULAR HGB CONC 32.3 % (33.0-36.5); MEAN PLATELET VOLUME 10.6 FL (7.4-10.4); MONOCYTES # (AUTO) 0.6 X10'3 (0-0.9); MONOCYTES % (AUTO) 4.2 % (2-12); NEUTROPHILS # (AUTO) 11.5 X10'3 (1.8-7.7); NEUTROPHILS % (AUTO) 85.1 % (42-75); PLATELET COUNT 153 X10'3 (140-440); WHITE BLOOD COUNT 13.5 X10'3 (4.5-11.0)
[2018-01-27 13:11] LABS: ABG HCO3 10.5 mmol/L (22.0-26.0); ABG PCO2 (T) 16.7 mmHg (32.0-45.0); ABG PH (T) 7.415 (7.350-7.450); ALLEN'S TEST Positive; FLOW 15 L/min; RESPIRATORY RATE (OBSERVED) 28 b/min; TOTAL HEMOGLOBIN < 4.7 G/dl (12.0-16.0)
[2018-01-27 13:14] LABS: HEMOGLOBIN 4.6 g/dl (12.0-16.0)
[2018-01-27 13:15] LABS: HEMATOCRIT 14.1 % (35.0-45.0)
[2018-01-27 13:26] LABS: CLARITY,URINE SLIGHTLY CLOUDY (Clear); COLOR,URINE AMBER (Yellow); GLUCOSE, URINE NEGATIVE (Neg); KETONES,URINE TRACE mg/dl (Neg); LEUKOCYTE ESTERASE ,URINE TRACE (Neg); NITRITES, URINE NEGATIVE (Neg); OCCULT BLOOD,URINE TRACE-LYSED (Neg); PH,URINE 5.5 (4.8-8.0); PROTEIN,URINE TRACE mg/dl (Neg); URINE HCG NEGATIVE (NEG)
[2018-01-27 13:27] LABS: UA COLLECTION TYPE FOLEY CATH
[2018-01-27 13:33] LABS: INR 2.2 INR; PARTIAL THROMBOPLASTIN TIME 49 SECONDS (22-32)
[2018-01-27 13:33] LABS: HYALINE CASTS >30 /LPF (NEGATIVE); MUCUS STRANDS MANY /LPF (Neg); SQUAMOUS EPITHELIAL CELL,UR MANY /LPF (FEW)
[2018-01-27 13:34] LABS: ALANINE AMINOTRANSFERASE 32 U/L (12-78); ALBUMIN 1.8 G/DL (3.4-5.0); ALKALINE PHOSPHATASE 134 IU/L (46-116); ANION GAP 25 (8-16); ASPARTATE AMINO TRANSFERASE 55 U/L (10-37); BILIRUBIN,TOTAL 6.3 MG/DL (0.1-1.0); BLOOD UREA NITROGEN 44 MG/DL (7-18); BUN/CREATININE RATIO 25.6 (6.6-38.0); CHLORIDE 106 MMOL/L (99-107); CREATININE 1.72 MG/DL (0.40-0.90); ETHANOL < 0.010 GM/DL (0.0-0.010); MAGNESIUM 1.8 MG/DL (1.5-2.4); SODIUM 143 MMOL/L (135-145); eGFR 33 ML/MIN
[2018-01-27 13:35] LABS: POTASSIUM 4.2 MMOL/L (3.5-5.1); TOTAL PROTEIN 5.9 G/DL (6.4-8.2)
[2018-01-27 13:36] LABS: ALBUMIN/GLOBULIN RATIO 0.4 (1.1-1.5); GLUCOSE 15 MG/DL (70-104); TOTAL CARBON DIOXIDE 11.9 MMOL/L (24-32)
[2018-01-27 13:39] LABS: RBC,URINE 0-2 /HPF (0-2)
[2018-01-27 13:40] LABS: BACTERIA,URINE NONE SEEN /HPF (Neg); RENAL CELLS, URINE FEW /HPF; TRANSITIONAL EPI CELLS,URINE MANY /HPF; YEAST FEW /HPF (NEGATIVE)
[2018-01-27] MEDS ORDERED: dextrose 50%-water 50ml dispensing syringe IV ONE (13:40)
[2018-01-27 13:41] LABS: ANISOCYTOSIS 3+; PLATELET ESTIMATE NORMAL
[2018-01-27 13:42] LABS: MICROCYTOSIS 1+
[2018-01-27 13:43] LABS: POLYCHROMASIA 1+
[2018-01-27 13:47] LABS: URINE AMPHETAMINE SCREEN NEGATIVE (Neg); URINE BARBITUATE SCREEN NEGATIVE (Neg); URINE BENZODIAZEPINES SCREEN NEGATIVE (Neg); URINE CANNABINOID SCREEN POSITIVE (Neg); URINE COCAINE SCREEN NEGATIVE (Neg); URINE METHADONE SCREEN NEGATIVE (Neg); URINE OPIATE SCREEN POSITIVE (Neg); URINE PHENCYCLIDINE SCREEN NEGATIVE (Neg)
[2018-01-27] MEDS ORDERED: azithromycin/NS 500mg/250ml 250 ML IV ONE (13:55)
[2018-01-27] MEDS ORDERED: CefTRIAXone/D5W-Rocephin 1gm 50 ML IV ONE (13:55)
[2018-01-27] MEDS ORDERED: midazolam 100mg in NS 100ml 100 ML IV ONE (14:10)
[2018-01-27] MEDS ORDERED: fentaNYL/PF 50MCG/1 ML 2ML syringe IV PRN (14:10)
[2018-01-27] MEDS: dextrose 5%-normal saline 1,000 ML IV SCH ×2 (14:42→17:23)
[2018-01-27 14:43] LABS: CREATINE KINASE 21 U/L (26-192)
[2018-01-27] MEDS ORDERED: magnesium Cl slow-release 64mg tablet PO PRN (15:00)
[2018-01-27] MEDS ORDERED: haloperidol lactate 5mg/ml inj IM PRN (15:00)
[2018-01-27] MEDS ORDERED: haloperidol 5mg tablet PO PRN (15:00)
[2018-01-27] MEDS ORDERED: magnesium 4gm in 100ml NS 100 ML IV PRN (15:00)
[2018-01-27] MEDS ORDERED: thiamine 100mg/ml 2ml inj. IV ONE (15:00)
[2018-01-27] MEDS ORDERED: sodium phosphate inj. 15 MMOL in dextrose 5%-water 150 ML IV PRN (15:00)
[2018-01-27] MEDS ORDERED: acetaminophen 325mg tablet PO PRN (15:00)
[2018-01-27] MEDS ORDERED: sodium phosphate inj. 30 MMOL in dextrose 5%-water 250 ML IV PRN (15:00)
[2018-01-27] MEDS ORDERED: Neutra Phos packet PO PRN (15:00)
[2018-01-27] MEDS ORDERED: ipratropium 0.5 MG/2.5ML nebule NEB PRN (15:00)
[2018-01-27] MEDS ORDERED: potassium Cl 20 mEq SR tablet PO PRN ×2 (15:00)
[2018-01-27] MEDS ORDERED: dextrose 50%-water 50ml dispensing syringe IV PRN (15:00)
[2018-01-27] MEDS ORDERED: magnesium 1gm/100ml D5W IVPB 100 ML IV PRN (15:00)
[2018-01-27] MEDS: pantoprazole 40MG/NS 100ML BAG 100 ML IV SCH ×3 (15:05→21:00)
[2018-01-27] MEDS ORDERED: folic acid 1mg tablet PO SCH (15:24)
[2018-01-27] MEDS ORDERED: folic acid 1mg/0.2ml inj IV ONE (15:30)
[2018-01-27] MEDS ORDERED: phytonadione inj. 10 MG in normal saline 100ml IV soln 99 ML IV ONE (16:00)
[2018-01-27] MEDS ORDERED: pantoprazole 40MG/NS 100ML BAG 100 ML IV SCH (16:00)
[2018-01-27 16:09] LABS: MEAN CORPUSCULAR HEMOGLOBIN 34.7 PG (27.0-31.0); MEAN CORPUSCULAR HGB CONC 32.8 % (33.0-36.5); MEAN PLATELET VOLUME 11.1 FL (7.4-10.4); RED BLOOD COUNT 1.23 X10'6 (4.20-5.60); RED CELL DISTRIBUTION WIDTH 27.1 % (11.5-14.5); WHITE BLOOD COUNT 14.3 X10'3 (4.5-11.0)
[2018-01-27 16:13] LABS: HEMOGLOBIN 4.3 g/dl (12.0-16.0)
[2018-01-27] MEDS ORDERED: MIDAZolam 5mg/5ml vial ONE (16:16)
[2018-01-27] MEDS ORDERED: fentaNYL/PF 50MCG/1 ML 2ML syringe ONE (16:16)
[2018-01-27] MEDS ORDERED: LIDOcaine Viscous 15ml cup ONE (16:17)
[2018-01-27] MEDS ORDERED: gelatin sponge, absorbable (Gelfoam 100) sponge TP ONE (16:35)
[2018-01-27 17:06] LABS: PLATELET COUNT 104 X10'3 (140-440)
[2018-01-27] MEDS: octreotide inj. 1,250 MCG in normal saline 250ml IV soln 243.75 ML IV SCH (17:20)
[2018-01-27 17:27] LABS: D-DIMER 4.17 MG/L FEU (0-0.50); INR 2.3 INR; PARTIAL THROMBOPLASTIN TIME 57 SECONDS (22-32); PROTHROMBIN TIME 23.5 SECONDS (9.0-12.0)
[2018-01-27] MEDS: normal saline 1000ml 1,000 ML IV SCH (20:34)
[2018-01-27 21:16] LABS: ABG BASE EXCESS -10.6 mmol/L (-2.0-3.0); ABG OXYGEN SATURATION 95.3 % (95-98); ABG PCO2 (T) 20.7 mmHg (32.0-45.0); ABG PH (T) 7.409 (7.350-7.450); ABG PO2 (T) 73.5 mmHg (83-108); ALLEN'S TEST Positive; FCOHb 0.2 % (0.5-1.5); FMetHb 0.2 % (0.3-1.12); FO2Hb 94.9 % (94-100); PATIENT TEMPERATURE 35.4; PEEP 5 cm H2O; RESPIRATORY RATE 18 b/min; RESPIRATORY RATE (OBSERVED) 18 b/min; TIDAL VOLUME 450 mL; TOTAL HEMOGLOBIN 8.4 G/dl (12.0-16.0)
[2018-01-27 22:56] LABS: HEMATOCRIT 26.8 % (35.0-45.0); HEMOGLOBIN 9.2 g/dl (12.0-16.0); MEAN CORPUSCULAR HEMOGLOBIN 31.7 PG (27.0-31.0); MEAN CORPUSCULAR HGB CONC 34.4 % (33.0-36.5); MEAN CORPUSCULAR VOLUME 92.4 FL (78-98); MEAN PLATELET VOLUME 10.4 FL (7.4-10.4); PLATELET COUNT 68 X10'3 (140-440); RED CELL DISTRIBUTION WIDTH 22.5 % (11.5-14.5); WHITE BLOOD COUNT 11.2 X10'3 (4.5-11.0)
[2018-01-28] VITALS (33 sets, daily range): BP systolic 73–127; BP diastolic 49–107
[2018-01-28] MEDS: lactulose 20gm/30ml cup PO SCH ×5 (00:01→20:14)
[2018-01-28] MEDS: pantoprazole 40MG/NS 100ML BAG 100 ML IV SCH ×5 (00:01→20:59)
[2018-01-28] MEDS: normal saline 1000ml 1,000 ML IV SCH (00:02)
[2018-01-28 03:54] LABS: BASOPHILS % (AUTO) 0.2 % (0-1); EOSINOPHILS % (AUTO) 0.1 % (0-6); HEMATOCRIT 29.7 % (35.0-45.0); HEMOGLOBIN 10.3 g/dl (12.0-16.0); LYMPHOCYTES # (AUTO) 2.1 X10'3 (1.1-4.8); LYMPHOCYTES % (AUTO) 16.6 % (21-51); MEAN CORPUSCULAR HEMOGLOBIN 31.8 PG (27.0-31.0); MEAN CORPUSCULAR HGB CONC 34.5 % (33.0-36.5); MEAN CORPUSCULAR VOLUME 92.1 FL (78-98); MEAN PLATELET VOLUME 10.9 FL (7.4-10.4); MONOCYTES # (AUTO) 0.4 X10'3 (0-0.9); MONOCYTES % (AUTO) 3.5 % (2-12); NEUTROPHILS # (AUTO) 10.2 X10'3 (1.8-7.7); NEUTROPHILS % (AUTO) 79.6 % (42-75); PLATELET COUNT 98 X10'3 (140-440); RED BLOOD COUNT 3.23 X10'6 (4.20-5.60); RED CELL DISTRIBUTION WIDTH 23.4 % (11.5-14.5); WHITE BLOOD COUNT 12.9 X10'3 (4.5-11.0)
[2018-01-28 04:03] LABS: ALANINE AMINOTRANSFERASE 34 U/L (12-78); ALBUMIN 2.1 G/DL (3.4-5.0); ALKALINE PHOSPHATASE 133 IU/L (46-116); ANION GAP 18 (8-16); ASPARTATE AMINO TRANSFERASE 74 U/L (10-37); BILIRUBIN,TOTAL 8.4 MG/DL (0.1-1.0); BLOOD UREA NITROGEN 38 MG/DL (7-18); BUN/CREATININE RATIO 24.1 (6.6-38.0); CALCIUM 7.8 MG/DL (8.5-10.1); CHLORIDE 108 MMOL/L (99-107); CREATININE 1.58 MG/DL (0.40-0.90); GLUCOSE 134 MG/DL (70-104); MAGNESIUM 1.5 MG/DL (1.5-2.4); SODIUM 142 MMOL/L (135-145); TOTAL CARBON DIOXIDE 16.2 MMOL/L (24-32); eGFR 36 ML/MIN
[2018-01-28 04:06] LABS: ALBUMIN/GLOBULIN RATIO 0.5 (1.1-1.5); PHOSPHORUS 3.8 MG/DL (2.3-4.5); POTASSIUM 3.2 MMOL/L (3.5-5.1); TOTAL PROTEIN 6.4 G/DL (6.4-8.2)
[2018-01-28 04:15] LABS: PLATELET ESTIMATE DECREASED
[2018-01-28 04:16] LABS: ABG BASE EXCESS -8.1 mmol/L (-2.0-3.0); ABG HCO3 14.2 mmol/L (22.0-26.0); ABG OXYGEN SATURATION 92.3 % (95-98); ABG PCO2 (T) 20.7 mmHg (32.0-45.0); ABG PH (T) 7.454 (7.350-7.450); ABG PO2 (T) 60.7 mmHg (83-108); FCOHb 0.2 % (0.5-1.5); FMetHb 0.1 % (0.3-1.12); MINUTE VOLUME 13 L/min; PATIENT TEMPERATURE 36.4; PEEP 5 cm H2O; RESPIRATORY RATE 16 b/min; RESPIRATORY RATE (OBSERVED) 27 b/min; TIDAL VOLUME 450 mL; TOTAL HEMOGLOBIN 10.8 G/dl (12.0-16.0)
[2018-01-28 04:18] LABS: ANISOCYTOSIS 3+; BURR CELLS 1+; GIANT PLATELET FEW; POLYCHROMASIA 1+; SCHISTOCYTES FEW
[2018-01-28] MEDS ORDERED: potassium Cl 40MEQ/250ML bag 250 ML IV PRN ×2 (04:35)
[2018-01-28 05:49] LABS: INR 1.5 INR; PARTIAL THROMBOPLASTIN TIME 38 SECONDS (22-32)
[2018-01-28 06:58] LABS: HEMATOCRIT 26.9 % (35.0-45.0); HEMOGLOBIN 9.3 g/dl (12.0-16.0); MEAN CORPUSCULAR HEMOGLOBIN 31.6 PG (27.0-31.0); MEAN CORPUSCULAR HGB CONC 34.3 % (33.0-36.5); MEAN CORPUSCULAR VOLUME 91.9 FL (78-98); MEAN PLATELET VOLUME 10.8 FL (7.4-10.4); PLATELET COUNT 81 X10'3 (140-440); RED BLOOD COUNT 2.93 X10'6 (4.20-5.60); RED CELL DISTRIBUTION WIDTH 23.8 % (11.5-14.5); WHITE BLOOD COUNT 10.3 X10'3 (4.5-11.0)
[2018-01-28 07:10] LABS: BURR CELLS 2+; PLATELET ESTIMATE DECREASED
[2018-01-28 07:11] LABS: ANISOCYTOSIS 3+
[2018-01-28] MEDS ORDERED: RIFA550T PO (07:45)
[2018-01-28] MEDS ORDERED: LACT10SO PO (07:45)
[2018-01-28] MEDS ORDERED: multivitamins, therapeutics tablet PO SCH (08:00)
[2018-01-28] MEDS ORDERED: K and/or MAG REPLACEMENT MC SCH (08:00)
[2018-01-28] MEDS ORDERED: azithromycin/NS 500mg/250ml 250 ML IV SCH (08:00)
[2018-01-28] MEDS ORDERED: CefTRIAXone/D5W-Rocephin 1gm 50 ML IV SCH (08:00)
[2018-01-28] MEDS: K, MAG and/or Phos replacement - Verify level? MC SCH (08:00)
[2018-01-28] MEDS: folic acid inj. 2 MG, thiamine inj. 100 MG, MVI, adult No.4 with vit. K 10 ML in dextro... IV SCH ×4 (10:28)
[2018-01-28 10:51] LABS: HEMATOCRIT 37.2 % (35.0-45.0); HEMOGLOBIN 12.6 g/dl (12.0-16.0); MEAN CORPUSCULAR HEMOGLOBIN 30.3 PG (27.0-31.0); MEAN CORPUSCULAR VOLUME 89.2 FL (78-98); MEAN PLATELET VOLUME 10.8 FL (7.4-10.4); PLATELET COUNT 74 X10'3 (140-440); RED BLOOD COUNT 4.17 X10'6 (4.20-5.60); WHITE BLOOD COUNT 13.1 X10'3 (4.5-11.0)
[2018-01-28] MEDS: propranolol 10mg tablet PO SCH ×2 (10:52→20:14)
[2018-01-28 11:06] LABS: PLATELET COUNT 74 X10'3 (140-440)
[2018-01-28 11:09] LABS: LARGE PLATELETS FEW; PLATELET ESTIMATE DECREASED
[2018-01-28 11:10] LABS: BURR CELLS 2+; POLYCHROMASIA FEW
[2018-01-28] MEDS: rifaximin 550mg tablet PO SCH ×2 (11:11→20:15)
[2018-01-28] MEDS: levoTHYROXINE 25mcg tablet PO SCH (11:11)
[2018-01-28 11:12] LABS: ANISOCYTOSIS 2+; POIKILOCYTOSIS 2+; SCHISTOCYTES FEW
[2018-01-28 11:15] LABS: MAGNESIUM 1.4 MG/DL (1.5-2.4)
[2018-01-28 11:18] LABS: POTASSIUM 3.8 MMOL/L (3.5-5.1)
[2018-01-28 11:22] LABS: D-DIMER 3.77 MG/L FEU (0-0.50); INR 1.6 INR; PARTIAL THROMBOPLASTIN TIME 36 SECONDS (22-32)
[2018-01-28] MEDS ORDERED: lactulose 20gm/30ml cup PO PRN (11:25)
[2018-01-28] MEDS: octreotide inj. 1,250 MCG in normal saline 250ml IV soln 243.75 ML IV SCH (15:29)
[2018-01-28 15:41] LABS: HEMATOCRIT 37.5 % (35.0-45.0); HEMOGLOBIN 12.8 g/dl (12.0-16.0); MEAN CORPUSCULAR HEMOGLOBIN 30.6 PG (27.0-31.0); MEAN CORPUSCULAR HGB CONC 34.2 % (33.0-36.5); MEAN CORPUSCULAR VOLUME 89.4 FL (78-98); MEAN PLATELET VOLUME 11.2 FL (7.4-10.4); PLATELET COUNT 81 X10'3 (140-440); RED BLOOD COUNT 4.19 X10'6 (4.20-5.60); RED CELL DISTRIBUTION WIDTH 21.1 % (11.5-14.5)
[2018-01-28 15:51] LABS: MAGNESIUM 2.6 MG/DL (1.5-2.4)
[2018-01-28 15:54] LABS: POTASSIUM 3.6 MMOL/L (3.5-5.1)
[2018-01-28] MEDS ORDERED: vancomycin/NS 1 GM ADD-VANTAGE 250 ML IV SCH (18:00)
[2018-01-28] MEDS ORDERED: bumetanide 0.25mg/ml 4ml vial IV ONE (18:05)
[2018-01-28] MEDS: vancomycin/NS 1 GM ADD-VANTAGE 250 ML IV SCH (20:15)
[2018-01-28 21:59] LABS: HEMATOCRIT 40.6 % (35.0-45.0); MEAN CORPUSCULAR HEMOGLOBIN 30.4 PG (27.0-31.0); MEAN CORPUSCULAR HGB CONC 34.5 % (33.0-36.5); MEAN CORPUSCULAR VOLUME 88.1 FL (78-98); MEAN PLATELET VOLUME 11.3 FL (7.4-10.4); PLATELET COUNT 80 X10'3 (140-440); RED BLOOD COUNT 4.61 X10'6 (4.20-5.60); RED CELL DISTRIBUTION WIDTH 22.2 % (11.5-14.5); WHITE BLOOD COUNT 11.6 X10'3 (4.5-11.0)
[2018-01-28] MEDS: piperacillin/tazo 3.375gm/50ml 50 ML IV SCH (23:57)
[2018-01-29] VITALS (29 sets, daily range): BP systolic 79–120; BP diastolic 49–82
[2018-01-29 00:41] LABS: HEMATOCRIT 40.2 % (35.0-45.0); HEMOGLOBIN 13.5 g/dl (12.0-16.0); MEAN CORPUSCULAR HEMOGLOBIN 30.6 PG (27.0-31.0); MEAN CORPUSCULAR HGB CONC 33.5 % (33.0-36.5); MEAN CORPUSCULAR VOLUME 91.4 FL (78-98); MEAN PLATELET VOLUME 10.5 FL (7.4-10.4); PLATELET COUNT 69 X10'3 (140-440); RED CELL DISTRIBUTION WIDTH 23.1 % (11.5-14.5); WHITE BLOOD COUNT 11.8 X10'3 (4.5-11.0)
[2018-01-29] MEDS: pantoprazole 40MG/NS 100ML BAG 100 ML IV SCH ×6 (01:41→22:13)
[2018-01-29] MEDS: lactulose 20gm/30ml cup PO SCH ×3 (01:41→13:59)
[2018-01-29 03:49] LABS: BASOPHILS % (AUTO) 0.4 % (0-1); EOSINOPHILS % (AUTO) 0 % (0-6); HEMATOCRIT 40.1 % (35.0-45.0); HEMOGLOBIN 13.4 g/dl (12.0-16.0); LYMPHOCYTES # (AUTO) 1.6 X10'3 (1.1-4.8); LYMPHOCYTES % (AUTO) 14.7 % (21-51); MEAN CORPUSCULAR HEMOGLOBIN 30.5 PG (27.0-31.0); MEAN CORPUSCULAR HGB CONC 33.4 % (33.0-36.5); MEAN CORPUSCULAR VOLUME 91.3 FL (78-98); MEAN PLATELET VOLUME 12.1 FL (7.4-10.4); MONOCYTES # (AUTO) 0.2 X10'3 (0-0.9); MONOCYTES % (AUTO) 2.2 % (2-12); NEUTROPHILS # (AUTO) 9.1 X10'3 (1.8-7.7); NEUTROPHILS % (AUTO) 82.7 % (42-75); PLATELET COUNT 64 X10'3 (140-440); RED BLOOD COUNT 4.39 X10'6 (4.20-5.60); RED CELL DISTRIBUTION WIDTH 23.6 % (11.5-14.5)
[2018-01-29 03:51] LABS: ABG BASE EXCESS -9.7 mmol/L (-2.0-3.0); ABG HCO3 12.6 mmol/L (22.0-26.0); ABG OXYGEN SATURATION 96.7 % (95-98); ABG PCO2 (T) 20.6 mmHg (32.0-45.0); ABG PH (T) 7.404 (7.350-7.450); ABG PO2 (T) 93.5 mmHg (83-108); ALLEN'S TEST Positive; FCOHb 0.6 % (0.5-1.5); FMetHb 0.2 % (0.3-1.12); FO2Hb 95.9 % (94-100); MINUTE VOLUME 12 L/min; PATIENT TEMPERATURE 37.1; PEEP 10 cm H2O; RESPIRATORY RATE 16 b/min; RESPIRATORY RATE (OBSERVED) 24 b/min; TIDAL VOLUME 450 mL; TOTAL HEMOGLOBIN 14.3 G/dl (12.0-16.0)
[2018-01-29 04:02] LABS: INR 1.5 INR; PARTIAL THROMBOPLASTIN TIME 40 SECONDS (22-32); PROTHROMBIN TIME 15.7 SECONDS (9.0-12.0)
[2018-01-29 04:17] LABS: ALANINE AMINOTRANSFERASE 35 U/L (12-78); ALBUMIN 1.9 G/DL (3.4-5.0); ALBUMIN/GLOBULIN RATIO 0.4 (1.1-1.5); ALKALINE PHOSPHATASE 146 IU/L (46-116); ANION GAP 16 (8-16); ASPARTATE AMINO TRANSFERASE 66 U/L (10-37); BILIRUBIN,TOTAL 9.4 MG/DL (0.1-1.0); BLOOD UREA NITROGEN 41 MG/DL (7-18); BUN/CREATININE RATIO 20.7 (6.6-38.0); CALCIUM 8.5 MG/DL (8.5-10.1); CHLORIDE 111 MMOL/L (99-107); CREATININE 1.98 MG/DL (0.40-0.90); GLUCOSE 81 MG/DL (70-104); MAGNESIUM 2.5 MG/DL (1.5-2.4); PHOSPHORUS 3.9 MG/DL (2.3-4.5); POTASSIUM 3.8 MMOL/L (3.5-5.1); SODIUM 142 MMOL/L (135-145); TOTAL CARBON DIOXIDE 15.4 MMOL/L (24-32); TOTAL PROTEIN 6.5 G/DL (6.4-8.2); eGFR 28 ML/MIN
[2018-01-29] MEDS: propranolol 10mg tablet PO SCH ×2 (06:27→20:00)
[2018-01-29] MEDS: levoTHYROXINE 25mcg tablet PO SCH (07:00)
[2018-01-29] MEDS: piperacillin/tazo 3.375gm/50ml 50 ML IV SCH ×2 (07:27→16:09)
[2018-01-29] MEDS ORDERED: lactulose 20gm/30ml cup RC ONE (07:50)
[2018-01-29] MEDS: rifaximin 550mg tablet PO SCH ×2 (08:00→20:00)
[2018-01-29] MEDS: K, MAG and/or Phos replacement - Verify level? MC SCH (08:00)
[2018-01-29] MEDS: folic acid inj. 2 MG, thiamine inj. 100 MG, MVI, adult No.4 with vit. K 10 ML in dextro... IV SCH ×4 (08:03)
[2018-01-29] MEDS: mineral oil/petrolatum ophthal oint EACHEYE PRN ×2 (10:43→15:24)
[2018-01-29] MEDS: fentaNYL/PF 50MCG/1 ML 2ML syringe IV PRN (12:43)
[2018-01-29] MEDS: lactulose 20gm/30ml cup RC SCH ×4 (12:52→22:04)
[2018-01-29] MEDS ORDERED: Duosol 4K/3 Ca (w/calcium) 5,000 ML HE SCH (12:53)
[2018-01-29] MEDS ORDERED: calcium chloride inj. 1,000 MG in normal saline 100ml IV soln 100 ML IV PRN (12:55)
[2018-01-29 14:22] LABS: HEMATOCRIT 34.5 % (35.0-45.0); HEMOGLOBIN 11.8 g/dl (12.0-16.0); MEAN CORPUSCULAR HEMOGLOBIN 30.8 PG (27.0-31.0); MEAN CORPUSCULAR HGB CONC 34.1 % (33.0-36.5); MEAN CORPUSCULAR VOLUME 90.3 FL (78-98); PLATELET COUNT 87 X10'3 (140-440); RED BLOOD COUNT 3.82 X10'6 (4.20-5.60); RED CELL DISTRIBUTION WIDTH 21.9 % (11.5-14.5); WHITE BLOOD COUNT 8.4 X10'3 (4.5-11.0)
[2018-01-29] MEDS ORDERED: lactulose 20gm/30ml cup PO PRN (15:00)
[2018-01-29] MEDS: octreotide inj. 1,250 MCG in normal saline 250ml IV soln 243.75 ML IV SCH (15:26)
[2018-01-29] MEDS: BICARB DIALYSIS W/CALCIUM SOL 5,000 ML HE SCH ×2 (16:13→16:14)
[2018-01-29] MEDS: vancomycin/NS 1 GM ADD-VANTAGE 250 ML IV SCH (17:02)
[2018-01-29 17:34] LABS: HEMATOCRIT 34.5 % (35.0-45.0); HEMOGLOBIN 11.8 g/dl (12.0-16.0); MEAN CORPUSCULAR HEMOGLOBIN 30.7 PG (27.0-31.0); MEAN CORPUSCULAR HGB CONC 34.1 % (33.0-36.5); MEAN CORPUSCULAR VOLUME 90.2 FL (78-98); MEAN PLATELET VOLUME 9.8 FL (7.4-10.4); RED BLOOD COUNT 3.83 X10'6 (4.20-5.60); RED CELL DISTRIBUTION WIDTH 23.2 % (11.5-14.5); WHITE BLOOD COUNT 8.4 X10'3 (4.5-11.0)
[2018-01-29 17:52] LABS: ALANINE AMINOTRANSFERASE 30 U/L (12-78); ALBUMIN 1.7 G/DL (3.4-5.0); ALKALINE PHOSPHATASE 135 IU/L (46-116); ANION GAP 15 (8-16); ASPARTATE AMINO TRANSFERASE 68 U/L (10-37); BILIRUBIN,TOTAL 9.4 MG/DL (0.1-1.0); BLOOD UREA NITROGEN 36 MG/DL (7-18); BUN/CREATININE RATIO 20.5 (6.6-38.0); CALCIUM 7.8 MG/DL (8.5-10.1); CHLORIDE 110 MMOL/L (99-107); CREATININE 1.76 MG/DL (0.40-0.90); GLUCOSE 97 MG/DL (70-104); SODIUM 143 MMOL/L (135-145); TOTAL CARBON DIOXIDE 18.2 MMOL/L (24-32); eGFR 32 ML/MIN
[2018-01-29 17:53] LABS: MAGNESIUM 2.1 MG/DL (1.5-2.4); PHOSPHORUS 3.3 MG/DL (2.3-4.5); POTASSIUM 3.4 MMOL/L (3.5-5.1)
[2018-01-29 17:54] LABS: ALBUMIN/GLOBULIN RATIO 0.4 (1.1-1.5); TRIGLYCERIDES 116 MG/DL (20-135)
[2018-01-29 18:08] LABS: PLATELET COUNT 85 X10'3 (140-440)
[2018-01-29] MEDS: potassium Cl 20mEq/100mL bag 100 ML IV PRN ×2 (19:32→22:25)
[2018-01-29] MEDS ORDERED: NORepinephrine 8mg/ 250ml NS 250 ML IV SCH (19:40)
[2018-01-29] MEDS: DOPamine 400mg/D5W 250ml 250 ML IV SCH (20:41)
[2018-01-29] MEDS ORDERED: Dextrose 10%-water IV solution 1,000 ML IV PRN (21:00)
[2018-01-29] MEDS ORDERED: [UNRECOGNIZED DRUG - REMARK] IV SCH ×3 (21:00)
[2018-01-29 21:27] LABS: HEMOGLOBIN 12.3 g/dl (12.0-16.0); MEAN CORPUSCULAR HGB CONC 34.1 % (33.0-36.5); MEAN CORPUSCULAR VOLUME 90.8 FL (78-98); MEAN PLATELET VOLUME 9.7 FL (7.4-10.4); PLATELET COUNT 85 X10'3 (140-440); RED BLOOD COUNT 3.96 X10'6 (4.20-5.60); RED CELL DISTRIBUTION WIDTH 22.3 % (11.5-14.5); WHITE BLOOD COUNT 10.6 X10'3 (4.5-11.0)
[2018-01-29 21:39] LABS: ALBUMIN 1.7 G/DL (3.4-5.0); ANION GAP 10 (8-16); BLOOD UREA NITROGEN 34 MG/DL (7-18); BUN/CREATININE RATIO 21.3 (6.6-38.0); CALCIUM 7.9 MG/DL (8.5-10.1); CHLORIDE 112 MMOL/L (99-107); GLUCOSE 90 MG/DL (70-104); SODIUM 142 MMOL/L (135-145); TOTAL CARBON DIOXIDE 20.3 MMOL/L (24-32); eGFR 35 ML/MIN
[2018-01-29 21:42] LABS: POTASSIUM 3.6 MMOL/L (3.5-5.1)
[2018-01-29 23:08] LABS: HEMATOCRIT 37.3 % (35.0-45.0); HEMOGLOBIN 12.8 g/dl (12.0-16.0); MEAN CORPUSCULAR HGB CONC 34.3 % (33.0-36.5); MEAN CORPUSCULAR VOLUME 90.4 FL (78-98); PLATELET COUNT 84 X10'3 (140-440); RED BLOOD COUNT 4.12 X10'6 (4.20-5.60); RED CELL DISTRIBUTION WIDTH 21.9 % (11.5-14.5); WHITE BLOOD COUNT 9.7 X10'3 (4.5-11.0)
[2018-01-29 23:20] LABS: ALBUMIN 1.7 G/DL (3.4-5.0); ANION GAP 10 (8-16); BLOOD UREA NITROGEN 32 MG/DL (7-18); BUN/CREATININE RATIO 20.9 (6.6-38.0); CALCIUM 8.1 MG/DL (8.5-10.1); CHLORIDE 111 MMOL/L (99-107); CREATININE 1.53 MG/DL (0.40-0.90); GLUCOSE 100 MG/DL (70-104); MAGNESIUM 2.1 MG/DL (1.5-2.4); SODIUM 141 MMOL/L (135-145); TOTAL CARBON DIOXIDE 20.2 MMOL/L (24-32); eGFR 37 ML/MIN
[2018-01-29 23:22] LABS: PHOSPHORUS 2.9 MG/DL (2.3-4.5); POTASSIUM 3.7 MMOL/L (3.5-5.1)
[2018-01-29 23:47] LABS: PLATELET ESTIMATE DECREASED; TOTAL CELLS COUNTED 100
[2018-01-29 23:48] LABS: ANISOCYTOSIS 3+; BURR CELLS 2+; TARGET CELLS 1+
[2018-01-30] VITALS (51 sets, daily range): BP systolic 82–126; BP diastolic 54–84
[2018-01-30] MEDS: piperacillin/tazo 3.375gm/50ml 50 ML IV SCH ×3 (00:06→16:23)
[2018-01-30] MEDS: lactulose 20gm/30ml cup RC SCH ×6 (00:06→20:20)
[2018-01-30] MEDS: BICARB DIALYSIS W/CALCIUM SOL 5,000 ML HE SCH ×9 (01:30→16:50)
[2018-01-30 01:58] LABS: INR 1.5 INR; PARTIAL THROMBOPLASTIN TIME 42 SECONDS (22-32); PROTHROMBIN TIME 15.5 SECONDS (9.0-12.0)
[2018-01-30 02:04] LABS: ALBUMIN 1.7 G/DL (3.4-5.0); ANION GAP 10 (8-16); BLOOD UREA NITROGEN 29 MG/DL (7-18); BUN/CREATININE RATIO 19.7 (6.6-38.0); CHLORIDE 109 MMOL/L (99-107); CREATININE 1.47 MG/DL (0.40-0.90); GLUCOSE 177 MG/DL (70-104); MAGNESIUM 1.9 MG/DL (1.5-2.4); PREALBUMIN 8.2 MG/DL (19-36); SODIUM 141 MMOL/L (135-145); eGFR 39 ML/MIN
[2018-01-30 02:14] LABS: BASOPHILS % (AUTO) 0.1 % (0-1); EOSINOPHILS # (AUTO) 0.1 X10'3 (0-0.9); EOSINOPHILS % (AUTO) 1.3 % (0-6); HEMATOCRIT 37.5 % (35.0-45.0); HEMOGLOBIN 12.8 g/dl (12.0-16.0); LYMPHOCYTES # (AUTO) 1.2 X10'3 (1.1-4.8); LYMPHOCYTES % (AUTO) 12.9 % (21-51); MEAN CORPUSCULAR HEMOGLOBIN 31.1 PG (27.0-31.0); MEAN CORPUSCULAR HGB CONC 34.1 % (33.0-36.5); MEAN CORPUSCULAR VOLUME 91.1 FL (78-98); MEAN PLATELET VOLUME 10.1 FL (7.4-10.4); MONOCYTES # (AUTO) 0.3 X10'3 (0-0.9); MONOCYTES % (AUTO) 3.3 % (2-12); NEUTROPHILS # (AUTO) 7.7 X10'3 (1.8-7.7); NEUTROPHILS % (AUTO) 82.4 % (42-75); PLATELET COUNT 90 X10'3 (140-440); RED BLOOD COUNT 4.11 X10'6 (4.20-5.60); RED CELL DISTRIBUTION WIDTH 21.7 % (11.5-14.5); WHITE BLOOD COUNT 9.3 X10'3 (4.5-11.0)
[2018-01-30 02:16] LABS: PHOSPHORUS 2.8 MG/DL (2.3-4.5); POTASSIUM 3.7 MMOL/L (3.5-5.1); TRIGLYCERIDES 109 MG/DL (20-135)
[2018-01-30] MEDS: potassium Cl 20mEq/100mL bag 100 ML IV PRN ×3 (02:30→22:09)
[2018-01-30 03:26] LABS: ABG BASE EXCESS -6.7 mmol/L (-2.0-3.0); ABG HCO3 16.9 mmol/L (22.0-26.0); ABG OXYGEN SATURATION 89.9 % (95-98); ABG PCO2 (T) 27.4 mmHg (32.0-45.0); ABG PH (T) 7.404 (7.350-7.450); ABG PO2 (T) 56.6 mmHg (83-108); ALLEN'S TEST Positive; FCOHb 0.7 % (0.5-1.5); FMetHb 0.1 % (0.3-1.12); FO2Hb 89.2 % (94-100); MINUTE VOLUME 10 L/min; PEEP 8 cm H2O; RESPIRATORY RATE 16 b/min; RESPIRATORY RATE (OBSERVED) 22 b/min; TIDAL VOLUME 450 mL
[2018-01-30] MEDS: pantoprazole 40MG/NS 100ML BAG 100 ML IV SCH ×4 (04:01→21:15)
[2018-01-30 04:11] LABS: ANISOCYTOSIS 3+; PLATELET ESTIMATE DECREASED; TOTAL CELLS COUNTED 100
[2018-01-30 04:12] LABS: ACANTHOCYTES FEW; BURR CELLS 1+; ELLIPTOCYTES FEW; SCHISTOCYTES FEW; TARGET CELLS FEW
[2018-01-30 04:26] LABS: ALANINE AMINOTRANSFERASE 29 U/L (12-78); ALBUMIN 1.7 G/DL (3.4-5.0); ALKALINE PHOSPHATASE 144 IU/L (46-116); ANION GAP 8 (8-16); ASPARTATE AMINO TRANSFERASE 76 U/L (10-37); BILIRUBIN,TOTAL 10.2 MG/DL (0.1-1.0); BLOOD UREA NITROGEN 27 MG/DL (7-18); BUN/CREATININE RATIO 19.1 (6.6-38.0); CALCIUM 7.9 MG/DL (8.5-10.1); CHLORIDE 110 MMOL/L (99-107); CREATININE 1.41 MG/DL (0.40-0.90); GLUCOSE 144 MG/DL (70-104); MAGNESIUM 1.8 MG/DL (1.5-2.4); SODIUM 139 MMOL/L (135-145); TOTAL CARBON DIOXIDE 21.5 MMOL/L (24-32); eGFR 41 ML/MIN
[2018-01-30 04:29] LABS: ALBUMIN/GLOBULIN RATIO 0.4 (1.1-1.5); POTASSIUM 5.3 MMOL/L (3.5-5.1); TOTAL PROTEIN 6.3 G/DL (6.4-8.2)
[2018-01-30] MEDS: fentaNYL/PF 50MCG/1 ML 2ML syringe IV PRN (07:23)
[2018-01-30 07:57] LABS: BASOPHILS # (AUTO) 0.1 X10'3 (0-0.2); BASOPHILS % (AUTO) 0.7 % (0-1); EOSINOPHILS % (AUTO) 0.1 % (0-6); HEMATOCRIT 37.1 % (35.0-45.0); HEMOGLOBIN 12.6 g/dl (12.0-16.0); LYMPHOCYTES # (AUTO) 1.2 X10'3 (1.1-4.8); LYMPHOCYTES % (AUTO) 13.1 % (21-51); MEAN CORPUSCULAR HEMOGLOBIN 31.3 PG (27.0-31.0); MEAN CORPUSCULAR HGB CONC 34.1 % (33.0-36.5); MEAN CORPUSCULAR VOLUME 91.8 FL (78-98); MEAN PLATELET VOLUME 9.8 FL (7.4-10.4); MONOCYTES # (AUTO) 0.2 X10'3 (0-0.9); MONOCYTES % (AUTO) 2.6 % (2-12); NEUTROPHILS # (AUTO) 7.7 X10'3 (1.8-7.7); NEUTROPHILS % (AUTO) 83.5 % (42-75); PLATELET COUNT 75 X10'3 (140-440); RED BLOOD COUNT 4.04 X10'6 (4.20-5.60); RED CELL DISTRIBUTION WIDTH 23.4 % (11.5-14.5); WHITE BLOOD COUNT 9.2 X10'3 (4.5-11.0)
[2018-01-30] MEDS: K, MAG and/or Phos replacement - Verify level? MC SCH (08:00)
[2018-01-30] MEDS: propranolol 10mg tablet PO SCH ×2 (08:00→20:00)
[2018-01-30] MEDS: rifaximin 550mg tablet PO SCH ×2 (08:00→20:20)
[2018-01-30 08:09] LABS: ALBUMIN 1.6 G/DL (3.4-5.0); ANION GAP 6 (8-16); BLOOD UREA NITROGEN 23 MG/DL (7-18); BUN/CREATININE RATIO 18.4 (6.6-38.0); CHLORIDE 110 MMOL/L (99-107); CREATININE 1.25 MG/DL (0.40-0.90); GLUCOSE 129 MG/DL (70-104); MAGNESIUM 1.8 MG/DL (1.5-2.4); SODIUM 140 MMOL/L (135-145); eGFR 47 ML/MIN
[2018-01-30 08:10] LABS: POTASSIUM 3.9 MMOL/L (3.5-5.1)
[2018-01-30] MEDS: levoTHYROXINE sod inj. 100mcg/5 ml vial IV SCH (08:37)
[2018-01-30] MEDS: sodium phosphate inj. 30 MMOL in normal saline 250ml IV soln 250 ML IV PRN (09:04)
[2018-01-30] MEDS: DOPamine 400mg/D5W 250ml 250 ML IV SCH (09:26)
[2018-01-30 09:29] LABS: SMUDGE CELLS 2+; TOTAL CELLS COUNTED 100
[2018-01-30 09:33] LABS: ANISOCYTOSIS 3+; PLATELET ESTIMATE DECREASED; TARGET CELLS 1+
[2018-01-30 09:34] LABS: BURR CELLS 2+; POLYCHROMASIA FEW
[2018-01-30 09:35] LABS: TOXIC GRANULATION 2+
[2018-01-30 09:38] LABS: POIKILOCYTOSIS FEW; SCHISTOCYTES FEW; SPHEROCYTES FEW
[2018-01-30 14:02] LABS: HEMOGLOBIN 12.5 g/dl (12.0-16.0); MEAN CORPUSCULAR HEMOGLOBIN 30.8 PG (27.0-31.0); MEAN CORPUSCULAR HGB CONC 33.9 % (33.0-36.5); MEAN CORPUSCULAR VOLUME 90.9 FL (78-98); MEAN PLATELET VOLUME 9.4 FL (7.4-10.4); PLATELET COUNT 51 X10'3 (140-440); RED BLOOD COUNT 4.07 X10'6 (4.20-5.60); RED CELL DISTRIBUTION WIDTH 22.4 % (11.5-14.5)
[2018-01-30 14:14] LABS: ALBUMIN 1.6 G/DL (3.4-5.0); ANION GAP 11 (8-16); BLOOD UREA NITROGEN 20 MG/DL (7-18); BUN/CREATININE RATIO 17.9 (6.6-38.0); CALCIUM 7.9 MG/DL (8.5-10.1); CHLORIDE 108 MMOL/L (99-107); CREATININE 1.12 MG/DL (0.40-0.90); GLUCOSE 140 MG/DL (70-104); MAGNESIUM 1.8 MG/DL (1.5-2.4); SODIUM 142 MMOL/L (135-145); TOTAL CARBON DIOXIDE 23.5 MMOL/L (24-32); eGFR 53 ML/MIN
[2018-01-30 14:15] LABS: PHOSPHORUS 3.5 MG/DL (2.3-4.5); POTASSIUM 3.8 MMOL/L (3.5-5.1)
[2018-01-30] MEDS: octreotide inj. 1,250 MCG in normal saline 250ml IV soln 243.75 ML IV SCH (16:30)
[2018-01-30] MEDS: vancomycin/NS 1 GM ADD-VANTAGE 250 ML IV SCH (17:27)
[2018-01-30 19:53] LABS: HEMATOCRIT 34.1 % (35.0-45.0); HEMOGLOBIN 11.8 g/dl (12.0-16.0); MEAN CORPUSCULAR HEMOGLOBIN 31.4 PG (27.0-31.0); MEAN CORPUSCULAR HGB CONC 34.5 % (33.0-36.5); MEAN CORPUSCULAR VOLUME 91.1 FL (78-98); MEAN PLATELET VOLUME 9.1 FL (7.4-10.4); RED BLOOD COUNT 3.74 X10'6 (4.20-5.60); RED CELL DISTRIBUTION WIDTH 23.7 % (11.5-14.5); WHITE BLOOD COUNT 9.4 X10'3 (4.5-11.0)
[2018-01-30 20:05] LABS: ALBUMIN 1.5 G/DL (3.4-5.0); ANION GAP 7 (8-16); BLOOD UREA NITROGEN 18 MG/DL (7-18); BUN/CREATININE RATIO 20.5 (6.6-38.0); CHLORIDE 108 MMOL/L (99-107); CREATININE 0.88 MG/DL (0.40-0.90); GLUCOSE 180 MG/DL (70-104); MAGNESIUM 1.7 MG/DL (1.5-2.4); SODIUM 140 MMOL/L (135-145); TOTAL CARBON DIOXIDE 25.3 MMOL/L (24-32); eGFR 70 ML/MIN
[2018-01-30 20:21] LABS: PHOSPHORUS 2.5 MG/DL (2.3-4.5); POTASSIUM 3.4 MMOL/L (3.5-5.1)
[2018-01-30] MEDS: [UNRECOGNIZED DRUG - REMARK] IV SCH ×3 (20:21)
[2018-01-30 20:33] LABS: PLATELET COUNT 42 X10'3 (140-440)
[2018-01-30] MEDS: magnesium 4gm in 100ml NS 100 ML IV PRN (21:15)
[2018-01-31] VITALS (25 sets, daily range): BP systolic 95–132; BP diastolic 58–82
[2018-01-31] MEDS: piperacillin/tazo 3.375gm/50ml 50 ML IV SCH ×3 (00:08→16:12)
[2018-01-31] MEDS: lactulose 20gm/30ml cup RC SCH ×4 (00:08→13:46)
[2018-01-31] MEDS: BICARB DIALYSIS W/CALCIUM SOL 5,000 ML HE SCH ×4 (01:22→08:52)
[2018-01-31 02:23] LABS: HEMOGLOBIN 11.6 g/dl (12.0-16.0); MEAN CORPUSCULAR HEMOGLOBIN 31.2 PG (27.0-31.0); MEAN CORPUSCULAR HGB CONC 34.1 % (33.0-36.5); MEAN CORPUSCULAR VOLUME 91.5 FL (78-98); MEAN PLATELET VOLUME 9.9 FL (7.4-10.4); RED BLOOD COUNT 3.71 X10'6 (4.20-5.60); RED CELL DISTRIBUTION WIDTH 21.9 % (11.5-14.5); WHITE BLOOD COUNT 10.4 X10'3 (4.5-11.0)
[2018-01-31 02:30] LABS: INR 1.6 INR; PARTIAL THROMBOPLASTIN TIME 44 SECONDS (22-32); PROTHROMBIN TIME 16.3 SECONDS (9.0-12.0)
[2018-01-31 02:36] LABS: ALANINE AMINOTRANSFERASE 45 U/L (12-78); ALBUMIN 1.5 G/DL (3.4-5.0); ALKALINE PHOSPHATASE 145 IU/L (46-116); ANION GAP 5 (8-16); ASPARTATE AMINO TRANSFERASE 90 U/L (10-37); BILIRUBIN,TOTAL 8.1 MG/DL (0.1-1.0); BLOOD UREA NITROGEN 16 MG/DL (7-18); CALCIUM 7.7 MG/DL (8.5-10.1); CHLORIDE 108 MMOL/L (99-107); CREATININE 0.84 MG/DL (0.40-0.90); GLUCOSE 197 MG/DL (70-104); MAGNESIUM 2.4 MG/DL (1.5-2.4); SODIUM 139 MMOL/L (135-145); TOTAL CARBON DIOXIDE 25.6 MMOL/L (24-32); eGFR 74 ML/MIN
[2018-01-31 02:42] LABS: POTASSIUM 3.6 MMOL/L (3.5-5.1)
[2018-01-31 02:43] LABS: PHOSPHORUS 1.8 MG/DL (2.3-4.5); TOTAL PROTEIN < 2.0 G/DL (6.4-8.2)
[2018-01-31] MEDS: pantoprazole 40MG/NS 100ML BAG 100 ML IV SCH ×5 (02:52→23:52)
[2018-01-31 03:04] LABS: PLATELET COUNT 40 X10'3 (140-440)
[2018-01-31 03:20] LABS: ABG BASE EXCESS -0.9 mmol/L (-2.0-3.0); ABG HCO3 23.2 mmol/L (22.0-26.0); ABG OXYGEN SATURATION 95.8 % (95-98); ABG PCO2 (T) 34.4 mmHg (32.0-45.0); ABG PH (T) 7.441 (7.350-7.450); ABG PO2 (T) 75.7 mmHg (83-108); ALLEN'S TEST Positive; FCOHb 0.4 % (0.5-1.5); FMetHb 0.3 % (0.3-1.12); FO2Hb 95.1 % (94-100); MINUTE VOLUME 9 L/min; PATIENT TEMPERATURE 35.7; PEEP 8 cm H2O; RESPIRATORY RATE 16 b/min; RESPIRATORY RATE (OBSERVED) 19 b/min; TIDAL VOLUME 450 mL; TOTAL HEMOGLOBIN 12.2 G/dl (12.0-16.0)
[2018-01-31 03:25] LABS: ANISOCYTOSIS 3+; PLATELET ESTIMATE DECREASED; TOTAL CELLS COUNTED 100
[2018-01-31 03:26] LABS: BURR CELLS 2+; POIKILOCYTOSIS FEW
[2018-01-31] MEDS: potassium Cl 20mEq/100mL bag 100 ML IV PRN ×2 (03:33→04:32)
[2018-01-31] MEDS: sodium phosphate inj. 30 MMOL in normal saline 250ml IV soln 250 ML IV PRN ×2 (04:13→21:54)
[2018-01-31] MEDS: propranolol 10mg tablet PO SCH ×2 (07:43→20:00)
[2018-01-31] MEDS: DOPamine 400mg/D5W 250ml 250 ML IV SCH (07:45)
[2018-01-31] MEDS: rifaximin 550mg tablet PO SCH ×2 (08:00→20:00)
[2018-01-31] MEDS: K, MAG and/or Phos replacement - Verify level? MC SCH (08:00)
[2018-01-31 08:43] LABS: BASOPHILS % (AUTO) 0.1 % (0-1); EOSINOPHILS % (AUTO) 0.1 % (0-6); HEMATOCRIT 33.3 % (35.0-45.0); HEMOGLOBIN 11.4 g/dl (12.0-16.0); LYMPHOCYTES # (AUTO) 1.2 X10'3 (1.1-4.8); LYMPHOCYTES % (AUTO) 11.7 % (21-51); MEAN CORPUSCULAR HEMOGLOBIN 31.4 PG (27.0-31.0); MEAN CORPUSCULAR HGB CONC 34.2 % (33.0-36.5); MEAN CORPUSCULAR VOLUME 91.9 FL (78-98); MEAN PLATELET VOLUME 9.7 FL (7.4-10.4); MONOCYTES # (AUTO) 0.3 X10'3 (0-0.9); MONOCYTES % (AUTO) 3.1 % (2-12); NEUTROPHILS # (AUTO) 8.9 X10'3 (1.8-7.7); RED BLOOD COUNT 3.62 X10'6 (4.20-5.60); RED CELL DISTRIBUTION WIDTH 22.5 % (11.5-14.5); WHITE BLOOD COUNT 10.5 X10'3 (4.5-11.0)
[2018-01-31 08:58] LABS: ANISOCYTOSIS 3+; BURR CELLS 1+; PLATELET ESTIMATE DECREASED; TARGET CELLS FEW
[2018-01-31 09:27] LABS: ALBUMIN 1.4 G/DL (3.4-5.0); ANION GAP 11 (8-16); BLOOD UREA NITROGEN 13 MG/DL (7-18); CHLORIDE 104 MMOL/L (99-107); CREATININE 0.81 MG/DL (0.40-0.90); GLUCOSE 289 MG/DL (70-104); MAGNESIUM 1.8 MG/DL (1.5-2.4); SODIUM 140 MMOL/L (135-145); TOTAL CARBON DIOXIDE 25.1 MMOL/L (24-32); eGFR 78 ML/MIN
[2018-01-31 09:28] LABS: POTASSIUM 4.2 MMOL/L (3.5-5.1)
[2018-01-31 10:09] LABS: PLATELET COUNT 28 X10'3 (140-440)
[2018-01-31] MEDS: levoTHYROXINE sod inj. 100mcg/5 ml vial IV SCH (10:28)
[2018-01-31] MEDS ORDERED: vancomycin/NS 1 GM ADD-VANTAGE 250 ML IV SCH (10:58)
[2018-01-31] MEDS: Duosol 4K/3 Ca (w/calcium) 5,000 ML HE SCH ×8 (11:45→23:44)
[2018-01-31] MEDS ORDERED: lactulose 20gm/30ml cup RC SCH ×2 (13:00)
[2018-01-31 14:45] LABS: BASOPHILS % (AUTO) 0.1 % (0-1); EOSINOPHILS # (AUTO) 0.1 X10'3 (0-0.9); EOSINOPHILS % (AUTO) 0.7 % (0-6); HEMATOCRIT 31.9 % (35.0-45.0); HEMOGLOBIN 10.8 g/dl (12.0-16.0); LYMPHOCYTES # (AUTO) 1.1 X10'3 (1.1-4.8); LYMPHOCYTES % (AUTO) 11.5 % (21-51); MEAN CORPUSCULAR HEMOGLOBIN 30.8 PG (27.0-31.0); MEAN CORPUSCULAR VOLUME 90.7 FL (78-98); MEAN PLATELET VOLUME 9.2 FL (7.4-10.4); MONOCYTES # (AUTO) 0.2 X10'3 (0-0.9); MONOCYTES % (AUTO) 1.6 % (2-12); NEUTROPHILS # (AUTO) 8.5 X10'3 (1.8-7.7); NEUTROPHILS % (AUTO) 86.1 % (42-75); PLATELET COUNT 82 X10'3 (140-440); RED BLOOD COUNT 3.51 X10'6 (4.20-5.60); RED CELL DISTRIBUTION WIDTH 22.7 % (11.5-14.5); WHITE BLOOD COUNT 9.9 X10'3 (4.5-11.0)
[2018-01-31 14:52] LABS: ALBUMIN 1.5 G/DL (3.4-5.0); ANION GAP 5 (8-16); BLOOD UREA NITROGEN 12 MG/DL (7-18); BUN/CREATININE RATIO 15.6 (6.6-38.0); CHLORIDE 107 MMOL/L (99-107); CREATININE 0.77 MG/DL (0.40-0.90); GLUCOSE 143 MG/DL (70-104); MAGNESIUM 1.8 MG/DL (1.5-2.4); SODIUM 140 MMOL/L (135-145); TOTAL CARBON DIOXIDE 27.8 MMOL/L (24-32); eGFR 82 ML/MIN
[2018-01-31 14:53] LABS: ANISOCYTOSIS 3+; BURR CELLS 1+; PHOSPHORUS 2.2 MG/DL (2.3-4.5); PLATELET ESTIMATE DECREASED; TARGET CELLS 1+
[2018-01-31 15:12] LABS: D-DIMER 5.19 MG/L FEU (0-0.50); INR 1.4 INR; PARTIAL THROMBOPLASTIN TIME 39 SECONDS (22-32); PROTHROMBIN TIME 14.7 SECONDS (9.0-12.0)
[2018-01-31 16:12] LABS: PLATELET COUNT 82 X10'3 (140-440)
[2018-01-31] MEDS ORDERED: VANCOMYCIN LEVEL IV ONE (16:30)
[2018-01-31] MEDS: octreotide inj. 1,250 MCG in normal saline 250ml IV soln 243.75 ML IV SCH (17:49)
[2018-01-31] MEDS: fentaNYL/PF 50MCG/1 ML 2ML syringe IV PRN (19:19)
[2018-01-31] MEDS: lactobacillus rhamnosus 10,000 MMU CELLS/CAPSULE PO SCH (20:00)
[2018-01-31 20:17] LABS: BASOPHILS # (AUTO) 0.1 X10'3 (0-0.2); BASOPHILS % (AUTO) 1.3 % (0-1); EOSINOPHILS % (AUTO) 0 % (0-6); HEMATOCRIT 31.8 % (35.0-45.0); HEMOGLOBIN 10.8 g/dl (12.0-16.0); LYMPHOCYTES # (AUTO) 0.9 X10'3 (1.1-4.8); LYMPHOCYTES % (AUTO) 9.2 % (21-51); MEAN CORPUSCULAR HGB CONC 33.9 % (33.0-36.5); MEAN CORPUSCULAR VOLUME 91.5 FL (78-98); MEAN PLATELET VOLUME 9.2 FL (7.4-10.4); MONOCYTES # (AUTO) 0.2 X10'3 (0-0.9); MONOCYTES % (AUTO) 1.6 % (2-12); NEUTROPHILS # (AUTO) 8.4 X10'3 (1.8-7.7); NEUTROPHILS % (AUTO) 87.9 % (42-75); PLATELET COUNT 61 X10'3 (140-440); RED BLOOD COUNT 3.48 X10'6 (4.20-5.60); RED CELL DISTRIBUTION WIDTH 23.3 % (11.5-14.5); WHITE BLOOD COUNT 9.6 X10'3 (4.5-11.0)
[2018-01-31 20:35] LABS: ALBUMIN 1.4 G/DL (3.4-5.0); ANION GAP 8 (8-16); BLOOD UREA NITROGEN 10 MG/DL (7-18); BUN/CREATININE RATIO 14.9 (6.6-38.0); CHLORIDE 104 MMOL/L (99-107); CREATININE 0.67 MG/DL (0.40-0.90); GLUCOSE 264 MG/DL (70-104); MAGNESIUM 1.8 MG/DL (1.5-2.4); SODIUM 138 MMOL/L (135-145); TOTAL CARBON DIOXIDE 26.2 MMOL/L (24-32); eGFR > 90 ML/MIN
[2018-01-31 20:54] LABS: PHOSPHORUS 2.2 MG/DL (2.3-4.5)
[2018-02-01] VITALS (26 sets, daily range): BP systolic 77–105; BP diastolic 41–68
[2018-02-01] MEDS: [UNRECOGNIZED DRUG - REMARK] IV SCH ×3 (00:06)
[2018-02-01] MEDS: piperacillin/tazo 3.375gm/50ml 50 ML IV SCH ×3 (00:06→16:00)
[2018-02-01] MEDS: fentaNYL/PF 50MCG/1 ML 2ML syringe IV PRN ×5 (00:43→23:30)
[2018-02-01] MEDS: lactulose 20gm/30ml cup RC SCH ×2 (01:24→13:00)
[2018-02-01 02:48] LABS: BASOPHILS % (AUTO) 0.2 % (0-1); EOSINOPHILS % (AUTO) 0.1 % (0-6); HEMATOCRIT 31.2 % (35.0-45.0); HEMOGLOBIN 10.6 g/dl (12.0-16.0); LYMPHOCYTES # (AUTO) 0.9 X10'3 (1.1-4.8); LYMPHOCYTES % (AUTO) 9.1 % (21-51); MEAN CORPUSCULAR HEMOGLOBIN 31.2 PG (27.0-31.0); MEAN CORPUSCULAR HGB CONC 33.9 % (33.0-36.5); MEAN CORPUSCULAR VOLUME 91.9 FL (78-98); MEAN PLATELET VOLUME 9.1 FL (7.4-10.4); MONOCYTES # (AUTO) 0.3 X10'3 (0-0.9); MONOCYTES % (AUTO) 2.5 % (2-12); NEUTROPHILS % (AUTO) 88.1 % (42-75); PLATELET COUNT 56 X10'3 (140-440); RED CELL DISTRIBUTION WIDTH 22.7 % (11.5-14.5); WHITE BLOOD COUNT 10.2 X10'3 (4.5-11.0)
[2018-02-01 03:00] LABS: ALBUMIN 1.4 G/DL (3.4-5.0); ANION GAP 4 (8-16); BLOOD UREA NITROGEN 10 MG/DL (7-18); BUN/CREATININE RATIO 16.4 (6.6-38.0); CHLORIDE 106 MMOL/L (99-107); CREATININE 0.61 MG/DL (0.40-0.90); GLUCOSE 197 MG/DL (70-104); MAGNESIUM 1.7 MG/DL (1.5-2.4); SODIUM 138 MMOL/L (135-145); TOTAL CARBON DIOXIDE 28.5 MMOL/L (24-32); eGFR > 90 ML/MIN
[2018-02-01 03:02] LABS: INR 1.4 INR; PARTIAL THROMBOPLASTIN TIME 41 SECONDS (22-32); PROTHROMBIN TIME 14.8 SECONDS (9.0-12.0)
[2018-02-01 03:14] LABS: PHOSPHORUS 3.3 MG/DL (2.3-4.5)
[2018-02-01 03:15] LABS: ABG BASE EXCESS 0.3 mmol/L (-2.0-3.0); ABG HCO3 24.1 mmol/L (22.0-26.0); ABG OXYGEN SATURATION 93.7 % (95-98); ABG PCO2 (T) 34.5 mmHg (32.0-45.0); ABG PH (T) 7.459 (7.350-7.450); ABG PO2 (T) 65.2 mmHg (83-108); ALLEN'S TEST Positive; FCOHb 0.1 % (0.5-1.5); FMetHb 0.3 % (0.3-1.12); FO2Hb 93.3 % (94-100); MINUTE VOLUME 9 L/min; PATIENT TEMPERATURE 36.3; PEEP 8 cm H2O; RESPIRATORY RATE 16 b/min; RESPIRATORY RATE (OBSERVED) 18 b/min; TIDAL VOLUME 450 mL
[2018-02-01] MEDS: pantoprazole 40MG/NS 100ML BAG 100 ML IV SCH ×5 (05:14→22:15)
[2018-02-01] MEDS: DOPamine 400mg/D5W 250ml 250 ML IV SCH (05:51)
[2018-02-01] MEDS: lactobacillus rhamnosus 10,000 MMU CELLS/CAPSULE PO SCH ×2 (07:48→20:00)
[2018-02-01] MEDS: propranolol 10mg tablet PO SCH ×2 (07:48→20:00)
[2018-02-01] MEDS: rifaximin 550mg tablet PO SCH ×2 (07:48→20:00)
[2018-02-01] MEDS: K, MAG and/or Phos replacement - Verify level? MC SCH (07:49)
[2018-02-01] MEDS: Duosol 4K/3 Ca (w/calcium) 5,000 ML HE SCH ×8 (07:53→23:41)
[2018-02-01] MEDS: levoTHYROXINE sod inj. 100mcg/5 ml vial IV SCH (07:54)
[2018-02-01 08:32] LABS: BASOPHILS % (AUTO) 0.3 % (0-1); EOSINOPHILS # (AUTO) 0.1 X10'3 (0-0.9); EOSINOPHILS % (AUTO) 0.5 % (0-6); HEMATOCRIT 30.8 % (35.0-45.0); HEMOGLOBIN 10.4 g/dl (12.0-16.0); LYMPHOCYTES # (AUTO) 1.1 X10'3 (1.1-4.8); LYMPHOCYTES % (AUTO) 10.2 % (21-51); MEAN CORPUSCULAR HEMOGLOBIN 31.2 PG (27.0-31.0); MEAN CORPUSCULAR HGB CONC 33.7 % (33.0-36.5); MEAN CORPUSCULAR VOLUME 92.8 FL (78-98); MEAN PLATELET VOLUME 8.8 FL (7.4-10.4); MONOCYTES # (AUTO) 0.4 X10'3 (0-0.9); MONOCYTES % (AUTO) 3.5 % (2-12); NEUTROPHILS # (AUTO) 9.3 X10'3 (1.8-7.7); NEUTROPHILS % (AUTO) 85.5 % (42-75); RED BLOOD COUNT 3.32 X10'6 (4.20-5.60); RED CELL DISTRIBUTION WIDTH 24.1 % (11.5-14.5); WHITE BLOOD COUNT 10.9 X10'3 (4.5-11.0)
[2018-02-01 08:42] LABS: PLATELET COUNT 47 X10'3 (140-440)
[2018-02-01 08:45] LABS: PLATELET ESTIMATE DECREASED; TOTAL CELLS COUNTED 100
[2018-02-01 08:46] LABS: ANISOCYTOSIS 3+
[2018-02-01 08:47] LABS: BURR CELLS 2+; POLYCHROMASIA FEW; SCHISTOCYTES FEW; TARGET CELLS FEW; TOXIC GRANULATION 2+; TOXIC VACUOLATION 1+
[2018-02-01 09:05] LABS: ALBUMIN 1.3 G/DL (3.4-5.0); ANION GAP 5 (8-16); BLOOD UREA NITROGEN 11 MG/DL (7-18); BUN/CREATININE RATIO 15.7 (6.6-38.0); CHLORIDE 107 MMOL/L (99-107); GLUCOSE 114 MG/DL (70-104); MAGNESIUM 1.7 MG/DL (1.5-2.4); POTASSIUM 3.9 MMOL/L (3.5-5.1); SODIUM 139 MMOL/L (135-145); TOTAL CARBON DIOXIDE 26.9 MMOL/L (24-32); VANCOMYCIN,RANDOM 9.7 UG/ML; eGFR > 90 ML/MIN
[2018-02-01 09:09] LABS: PHOSPHORUS 2.3 MG/DL (2.3-4.5)
[2018-02-01] MEDS ORDERED: MIDAZolam 5mg/ml 2ml vial ONE (12:00)
[2018-02-01] MEDS ORDERED: albumin (human) 25% 100 ML IV solution IV ONE ×2 (12:20→12:30)
[2018-02-01 14:26] LABS: BASOPHILS % (AUTO) 0.3 % (0-1); EOSINOPHILS % (AUTO) 0 % (0-6); HEMATOCRIT 24.5 % (35.0-45.0); HEMOGLOBIN 8.3 g/dl (12.0-16.0); LYMPHOCYTES # (AUTO) 0.8 X10'3 (1.1-4.8); MEAN CORPUSCULAR HEMOGLOBIN 31.3 PG (27.0-31.0); MEAN CORPUSCULAR VOLUME 92.2 FL (78-98); MEAN PLATELET VOLUME 9.3 FL (7.4-10.4); MONOCYTES # (AUTO) 0.3 X10'3 (0-0.9); NEUTROPHILS # (AUTO) 7.2 X10'3 (1.8-7.7); NEUTROPHILS % (AUTO) 85.7 % (42-75); RED BLOOD COUNT 2.66 X10'6 (4.20-5.60); RED CELL DISTRIBUTION WIDTH 23.2 % (11.5-14.5); WHITE BLOOD COUNT 8.4 X10'3 (4.5-11.0)
[2018-02-01 14:45] LABS: ALANINE AMINOTRANSFERASE 48 U/L (12-78); ALKALINE PHOSPHATASE 127 IU/L (46-116); ANION GAP 5 (8-16); ASPARTATE AMINO TRANSFERASE 81 U/L (10-37); BILIRUBIN,TOTAL 5.7 MG/DL (0.1-1.0); BLOOD UREA NITROGEN 8 MG/DL (7-18); BUN/CREATININE RATIO 13.1 (6.6-38.0); CALCIUM 8.2 MG/DL (8.5-10.1); CHLORIDE 105 MMOL/L (99-107); CREATININE 0.61 MG/DL (0.40-0.90); GLUCOSE 114 MG/DL (70-104); MAGNESIUM 1.8 MG/DL (1.5-2.4); PLATELET COUNT 27 X10'3 (140-440); POTASSIUM 3.8 MMOL/L (3.5-5.1); SODIUM 139 MMOL/L (135-145); TOTAL CARBON DIOXIDE 29.2 MMOL/L (24-32); eGFR > 90 ML/MIN
[2018-02-01 15:11] LABS: ALBUMIN/GLOBULIN RATIO 0.9 (1.1-1.5); PHOSPHORUS 1.8 MG/DL (2.3-4.5); TOTAL PROTEIN 6.5 G/DL (6.4-8.2)
[2018-02-01] MEDS: magnesium 4gm in 100ml NS 100 ML IV PRN (17:58)
[2018-02-01 20:21] LABS: BASOPHILS % (AUTO) 0.2 % (0-1); EOSINOPHILS # (AUTO) 0.1 X10'3 (0-0.9); EOSINOPHILS % (AUTO) 1.1 % (0-6); HEMATOCRIT 23.7 % (35.0-45.0); HEMOGLOBIN 8.2 g/dl (12.0-16.0); LYMPHOCYTES # (AUTO) 0.9 X10'3 (1.1-4.8); LYMPHOCYTES % (AUTO) 11.6 % (21-51); MEAN CORPUSCULAR HEMOGLOBIN 31.7 PG (27.0-31.0); MEAN CORPUSCULAR HGB CONC 34.6 % (33.0-36.5); MEAN CORPUSCULAR VOLUME 91.6 FL (78-98); MEAN PLATELET VOLUME 8.5 FL (7.4-10.4); MONOCYTES # (AUTO) 0.3 X10'3 (0-0.9); MONOCYTES % (AUTO) 4.6 % (2-12); NEUTROPHILS # (AUTO) 6.3 X10'3 (1.8-7.7); NEUTROPHILS % (AUTO) 82.5 % (42-75); RED BLOOD COUNT 2.59 X10'6 (4.20-5.60); RED CELL DISTRIBUTION WIDTH 23.2 % (11.5-14.5); WHITE BLOOD COUNT 7.7 X10'3 (4.5-11.0)
[2018-02-01] MEDS: octreotide inj. 1,250 MCG in normal saline 250ml IV soln 243.75 ML IV SCH (20:21)
[2018-02-01 20:28] LABS: PLATELET COUNT 25 X10'3 (140-440)
[2018-02-01 20:35] LABS: ALBUMIN 2.5 G/DL (3.4-5.0); ANION GAP 5 (8-16); BLOOD UREA NITROGEN 8 MG/DL (7-18); CHLORIDE 104 MMOL/L (99-107); GLUCOSE 147 MG/DL (70-104); MAGNESIUM 2.8 MG/DL (1.5-2.4); POTASSIUM 3.7 MMOL/L (3.5-5.1); SODIUM 138 MMOL/L (135-145); TOTAL CARBON DIOXIDE 29.1 MMOL/L (24-32); eGFR > 90 ML/MIN
[2018-02-01 20:51] LABS: PHOSPHORUS 1.4 MG/DL (2.3-4.5)
[2018-02-01] MEDS: potassium Cl 20mEq/100mL bag 100 ML IV PRN ×2 (22:01→22:52)
[2018-02-01] MEDS: sodium phosphate inj. 30 MMOL in normal saline 250ml IV soln 250 ML IV PRN (22:21)
[2018-02-02] VITALS (40 sets, daily range): BP systolic 72–105; BP diastolic 41–72
[2018-02-02] MEDS: piperacillin/tazo 3.375gm/50ml 50 ML IV SCH ×4 (00:01→23:59)
[2018-02-02] MEDS: pantoprazole 40MG/NS 100ML BAG 100 ML IV SCH ×5 (00:48→20:42)
[2018-02-02] MEDS: lactulose 20gm/30ml cup RC SCH ×2 (01:00→12:50)
[2018-02-02 02:21] LABS: BASOPHILS % (AUTO) 0.3 % (0-1); EOSINOPHILS # (AUTO) 0.1 X10'3 (0-0.9); EOSINOPHILS % (AUTO) 1.2 % (0-6); HEMATOCRIT 24.2 % (35.0-45.0); HEMOGLOBIN 8.1 g/dl (12.0-16.0); LYMPHOCYTES # (AUTO) 0.9 X10'3 (1.1-4.8); LYMPHOCYTES % (AUTO) 11.4 % (21-51); MEAN CORPUSCULAR HEMOGLOBIN 31.2 PG (27.0-31.0); MEAN CORPUSCULAR HGB CONC 33.6 % (33.0-36.5); MEAN CORPUSCULAR VOLUME 92.9 FL (78-98); MEAN PLATELET VOLUME 8.9 FL (7.4-10.4); MONOCYTES # (AUTO) 0.4 X10'3 (0-0.9); MONOCYTES % (AUTO) 5.1 % (2-12); NEUTROPHILS # (AUTO) 6.6 X10'3 (1.8-7.7); PLATELET COUNT 54 X10'3 (140-440); RED BLOOD COUNT 2.61 X10'6 (4.20-5.60); RED CELL DISTRIBUTION WIDTH 22.3 % (11.5-14.5)
[2018-02-02 02:30] LABS: INR 1.5 INR; PARTIAL THROMBOPLASTIN TIME 46 SECONDS (22-32)
[2018-02-02 02:33] LABS: ALANINE AMINOTRANSFERASE 46 U/L (12-78); ALBUMIN 2.4 G/DL (3.4-5.0); ALKALINE PHOSPHATASE 129 IU/L (46-116); ANION GAP 4 (8-16); ASPARTATE AMINO TRANSFERASE 75 U/L (10-37); BILIRUBIN,TOTAL 6.2 MG/DL (0.1-1.0); BLOOD UREA NITROGEN 7 MG/DL (7-18); CALCIUM 7.9 MG/DL (8.5-10.1); CHLORIDE 105 MMOL/L (99-107); GLUCOSE 153 MG/DL (70-104); MAGNESIUM 2.1 MG/DL (1.5-2.4); POTASSIUM 4.2 MMOL/L (3.5-5.1); SODIUM 138 MMOL/L (135-145); TOTAL CARBON DIOXIDE 29.2 MMOL/L (24-32); eGFR > 90 ML/MIN
[2018-02-02 02:49] LABS: ALBUMIN/GLOBULIN RATIO 0.7 (1.1-1.5); TOTAL PROTEIN 5.7 G/DL (6.4-8.2)
[2018-02-02] MEDS: fentaNYL/PF 50MCG/1 ML 2ML syringe IV PRN (03:27)
[2018-02-02] MEDS: DOPamine 400mg/D5W 250ml 250 ML IV SCH ×2 (04:15→23:59)
[2018-02-02] MEDS: FENTANYL-0.9 % NACL/PF 100 ML IV SCH ×2 (04:41→17:01)
[2018-02-02 04:45] LABS: ABG BASE EXCESS 1.2 mmol/L (-2.0-3.0); ABG HCO3 24.8 mmol/L (22.0-26.0); ABG OXYGEN SATURATION 95.5 % (95-98); ABG PCO2 (T) 33.9 mmHg (32.0-45.0); ABG PH (T) 7.479 (7.350-7.450); ABG PO2 (T) 73.6 mmHg (83-108); ALLEN'S TEST Positive; FCOHb 0.2 % (0.5-1.5); FLOW 1 L/min; FO2Hb 95.3 % (94-100); PATIENT TEMPERATURE 36.1; PEEP 8 cm H2O; RESPIRATORY RATE 16 b/min; TIDAL VOLUME 450 mL; TOTAL HEMOGLOBIN 9.2 G/dl (12.0-16.0)
[2018-02-02] MEDS: [UNRECOGNIZED DRUG - REMARK] IV SCH ×3 (05:14)
[2018-02-02] MEDS: Duosol 4K/3 Ca (w/calcium) 5,000 ML HE SCH ×12 (06:28→23:41)
[2018-02-02] MEDS: rifaximin 550mg tablet PO SCH ×2 (07:32→20:00)
[2018-02-02] MEDS: lactobacillus rhamnosus 10,000 MMU CELLS/CAPSULE PO SCH ×2 (07:32→20:00)
[2018-02-02] MEDS: propranolol 10mg tablet PO SCH ×2 (07:32→20:00)
[2018-02-02] MEDS: levoTHYROXINE sod inj. 100mcg/5 ml vial IV SCH (07:35)
[2018-02-02] MEDS: K, MAG and/or Phos replacement - Verify level? MC SCH (08:00)
[2018-02-02 08:31] LABS: HEMOGLOBIN 8.6 g/dl (12.0-16.0); MEAN CORPUSCULAR HEMOGLOBIN 31.7 PG (27.0-31.0); MEAN CORPUSCULAR HGB CONC 34.5 % (33.0-36.5); MEAN CORPUSCULAR VOLUME 91.9 FL (78-98); MEAN PLATELET VOLUME 9.6 FL (7.4-10.4); PLATELET COUNT 54 X10'3 (140-440); RED BLOOD COUNT 2.72 X10'6 (4.20-5.60); WHITE BLOOD COUNT 9.2 X10'3 (4.5-11.0)
[2018-02-02 08:44] LABS: ALBUMIN 2.3 G/DL (3.4-5.0); ANION GAP 3 (8-16); BLOOD UREA NITROGEN 7 MG/DL (7-18); BUN/CREATININE RATIO 13.7 (6.6-38.0); CHLORIDE 104 MMOL/L (99-107); CREATININE 0.51 MG/DL (0.40-0.90); GLUCOSE 108 MG/DL (70-104); MAGNESIUM 1.8 MG/DL (1.5-2.4); POTASSIUM 4.2 MMOL/L (3.5-5.1); SODIUM 138 MMOL/L (135-145); TOTAL CARBON DIOXIDE 30.7 MMOL/L (24-32); eGFR > 90 ML/MIN
[2018-02-02 08:58] LABS: PHOSPHORUS 2.1 MG/DL (2.3-4.5)
[2018-02-02] MEDS: sodium phosphate inj. 30 MMOL in normal saline 250ml IV soln 250 ML IV PRN (10:55)
[2018-02-02] MEDS ORDERED: CALCIUM GLUCONATE IV PRN ×2 (13:55→17:30)
[2018-02-02] MEDS ORDERED: NORMAL SALINE IV PRN ×2 (13:55→17:30)
[2018-02-02 15:08] LABS: ANION GAP 4 (8-16); BLOOD UREA NITROGEN 7 MG/DL (7-18); CALCIUM 7.6 MG/DL (8.5-10.1); CHLORIDE 105 MMOL/L (99-107); CREATININE 0.54 MG/DL (0.40-0.90); GLUCOSE 99 MG/DL (70-104); MAGNESIUM 1.7 MG/DL (1.5-2.4); SODIUM 138 MMOL/L (135-145); TOTAL CARBON DIOXIDE 28.9 MMOL/L (24-32); eGFR > 90 ML/MIN
[2018-02-02 15:09] LABS: PHOSPHORUS 3.7 MG/DL (2.3-4.5)
[2018-02-02 15:11] LABS: HEMATOCRIT 24.2 % (35.0-45.0); HEMOGLOBIN 8.1 g/dl (12.0-16.0); MEAN CORPUSCULAR HEMOGLOBIN 31.5 PG (27.0-31.0); MEAN CORPUSCULAR HGB CONC 33.6 % (33.0-36.5); MEAN CORPUSCULAR VOLUME 93.8 FL (78-98); MEAN PLATELET VOLUME 10.1 FL (7.4-10.4); PLATELET COUNT 51 X10'3 (140-440); RED BLOOD COUNT 2.58 X10'6 (4.20-5.60); RED CELL DISTRIBUTION WIDTH 24.1 % (11.5-14.5); WHITE BLOOD COUNT 7.7 X10'3 (4.5-11.0)
[2018-02-02] MEDS ORDERED: heparin 1,000 units/ml 10ml inj IV ONE (15:15)
[2018-02-02] MEDS ORDERED: heparin 1,000 units/ml 10ml inj HE ONE ×2 (15:40)
[2018-02-02] MEDS: octreotide inj. 1,250 MCG in normal saline 250ml IV soln 243.75 ML IV SCH (16:10)
[2018-02-02] MEDS ORDERED: bicarb dialysis sol NO calcium 5,000 ML HE SCH (17:30)
[2018-02-02] MEDS ORDERED: citrate dextrose 1000ml IV sol 1,000 ML IV PRN (17:30)
[2018-02-02] MEDS ORDERED: magnesium 4gm in 100ml NS 100 ML IV PRN (17:30)
[2018-02-02] MEDS ORDERED: Duosol 4k/NO Calcium 5,000 ML HE SCH (17:30)
[2018-02-02] MEDS ORDERED: calcium chloride inj. 1,000 MG in normal saline 100ml IV soln 100 ML IV PRN (17:30)
[2018-02-02] MEDS ORDERED: calcium chloride inj. 10,000 MG in normal saline 500ml IV soln 400 ML IV PRN (17:30)
[2018-02-02] MEDS ORDERED: sodium phosphate inj. 30 MMOL in normal saline 250ml IV soln 250 ML IV PRN (17:30)
[2018-02-02] MEDS ORDERED: potassium Cl 20mEq/100mL bag 100 ML IV PRN (17:30)
[2018-02-03] VITALS (47 sets, daily range): BP systolic 72–111; BP diastolic 42–74
[2018-02-03] MEDS ORDERED: NORepinephrine 8mg/ 250ml NS 250 ML IV SCH (00:20)
[2018-02-03] MEDS ORDERED: acetaminophen 1,000mg/100ml IV 100 ML IV ONE (00:25)
[2018-02-03] MEDS: Duosol 4K/3 Ca (w/calcium) 5,000 ML HE SCH ×12 (01:37→22:53)
[2018-02-03 02:09] LABS: ALANINE AMINOTRANSFERASE 49 U/L (12-78); ALBUMIN 1.8 G/DL (3.4-5.0); ALKALINE PHOSPHATASE 186 IU/L (46-116); ANION GAP 6 (8-16); ASPARTATE AMINO TRANSFERASE 99 U/L (10-37); BILIRUBIN,TOTAL 5.1 MG/DL (0.1-1.0); BLOOD UREA NITROGEN 10 MG/DL (7-18); BUN/CREATININE RATIO 13.3 (6.6-38.0); CALCIUM 7.7 MG/DL (8.5-10.1); CHLORIDE 104 MMOL/L (99-107); CREATININE 0.75 MG/DL (0.40-0.90); GLUCOSE 81 MG/DL (70-104); POTASSIUM 4.5 MMOL/L (3.5-5.1); SODIUM 138 MMOL/L (135-145); TOTAL CARBON DIOXIDE 28.2 MMOL/L (24-32); eGFR 85 ML/MIN
[2018-02-03 02:35] LABS: ALBUMIN/GLOBULIN RATIO 0.5 (1.1-1.5); TOTAL PROTEIN 5.4 G/DL (6.4-8.2)
[2018-02-03] MEDS: pantoprazole 40MG/NS 100ML BAG 100 ML IV SCH ×3 (02:37→12:33)
[2018-02-03] MEDS: lactulose 20gm/30ml cup RC SCH ×2 (02:37→13:36)
[2018-02-03 02:49] LABS: INR 1.5 INR; PARTIAL THROMBOPLASTIN TIME 45 SECONDS (22-32); PROTHROMBIN TIME 15.7 SECONDS (9.0-12.0)
[2018-02-03 03:01] LABS: BASOPHILS % (AUTO) 0.2 % (0-1); EOSINOPHILS # (AUTO) 0.1 X10'3 (0-0.9); EOSINOPHILS % (AUTO) 1.4 % (0-6); HEMATOCRIT 23.5 % (35.0-45.0); LYMPHOCYTES # (AUTO) 1.1 X10'3 (1.1-4.8); MEAN CORPUSCULAR HEMOGLOBIN 31.7 PG (27.0-31.0); MEAN CORPUSCULAR HGB CONC 33.9 % (33.0-36.5); MEAN CORPUSCULAR VOLUME 93.6 FL (78-98); MONOCYTES # (AUTO) 0.6 X10'3 (0-0.9); MONOCYTES % (AUTO) 7.1 % (2-12); NEUTROPHILS # (AUTO) 6.7 X10'3 (1.8-7.7); NEUTROPHILS % (AUTO) 78.3 % (42-75); PLATELET COUNT 55 X10'3 (140-440); RED BLOOD COUNT 2.51 X10'6 (4.20-5.60); RED CELL DISTRIBUTION WIDTH 24.5 % (11.5-14.5); WHITE BLOOD COUNT 8.5 X10'3 (4.5-11.0)
[2018-02-03 03:32] LABS: CLARITY,URINE CLOUDY (Clear); COLOR,URINE BROWN (Yellow)
[2018-02-03 03:34] LABS: UA COLLECTION TYPE STRAIGHT CATH
[2018-02-03 03:47] LABS: COARSE GRANULAR CAST 0-3 /LPF (NEGATIVE)
[2018-02-03 03:48] LABS: SQUAMOUS EPITHELIAL CELL,UR FEW /LPF (FEW); YEAST MODERATE /HPF (NEGATIVE)
[2018-02-03 03:49] LABS: BACTERIA,URINE 3+ /HPF (Neg); RBC,URINE 0-2 /HPF (0-2); WBC,URINE 20-30 /HPF (0-4)
[2018-02-03 04:06] LABS: TOTAL CELLS COUNTED 100
[2018-02-03 04:07] LABS: ACANTHOCYTES FEW; ANISOCYTOSIS 3+; PLATELET ESTIMATE DECREASED; POLYCHROMASIA FEW; TARGET CELLS 1+
[2018-02-03 04:08] LABS: BURR CELLS 1+; POIKILOCYTOSIS FEW
[2018-02-03 04:11] LABS: ABG BASE EXCESS 0.3 mmol/L (-2.0-3.0); ABG HCO3 23.9 mmol/L (22.0-26.0); ABG OXYGEN SATURATION 97.6 % (95-98); ABG PCO2 (T) 36.7 mmHg (32.0-45.0); ABG PH (T) 7.438 (7.350-7.450); ABG PO2 (T) 106.4 mmHg (83-108); ALLEN'S TEST Positive; FCOHb 0.2 % (0.5-1.5); FMetHb 0.3 % (0.3-1.12); FO2Hb 97.1 % (94-100); PATIENT TEMPERATURE 38.4; PEEP 8 cm H2O; RESPIRATORY RATE 12 b/min; TIDAL VOLUME 450 mL; TOTAL HEMOGLOBIN 8.5 G/dl (12.0-16.0)
[2018-02-03] MEDS: levoTHYROXINE sod inj. 100mcg/5 ml vial IV SCH (06:54)
[2018-02-03 06:58] LABS: MAGNESIUM 1.6 MG/DL (1.5-2.4)
[2018-02-03] MEDS: piperacillin/tazo 3.375gm/50ml 50 ML IV SCH ×2 (06:59→16:24)
[2018-02-03 07:04] LABS: PHOSPHORUS 3.9 MG/DL (2.3-4.5); TRIGLYCERIDES 32 MG/DL (20-135)
[2018-02-03] MEDS: [UNRECOGNIZED DRUG - REMARK] IV SCH ×3 (07:49)
[2018-02-03] MEDS: rifaximin 550mg tablet PO SCH ×2 (08:00→20:00)
[2018-02-03] MEDS: propranolol 10mg tablet PO SCH ×2 (08:00→20:00)
[2018-02-03] MEDS: K, MAG and/or Phos replacement - Verify level? MC SCH (08:00)
[2018-02-03] MEDS: lactobacillus rhamnosus 10,000 MMU CELLS/CAPSULE PO SCH ×2 (08:00→20:00)
[2018-02-03] MEDS: fentaNYL/PF 50MCG/1 ML 2ML syringe IV PRN (08:10)
[2018-02-03] MEDS: Chloraseptic (Phenol) Spray 177ml MM PRN (14:00)
[2018-02-03 18:07] LABS: MAGNESIUM 1.8 MG/DL (1.5-2.4); POTASSIUM 4.4 MMOL/L (3.5-5.1)
[2018-02-03] MEDS: pantoprazole 40 MG vial IV SCH (20:57)
[2018-02-04] VITALS (30 sets, daily range): BP systolic 63–132; BP diastolic 40–90
[2018-02-04] MEDS: piperacillin/tazo 3.375gm/50ml 50 ML IV SCH ×3 (00:36→15:38)
[2018-02-04] MEDS: Duosol 4K/3 Ca (w/calcium) 5,000 ML HE SCH ×3 (00:49→04:41)
[2018-02-04] MEDS: lactulose 20gm/30ml cup PO SCH ×4 (02:15→20:14)
[2018-02-04 02:18] LABS: INR 1.6 INR; PARTIAL THROMBOPLASTIN TIME 42 SECONDS (22-32); PROTHROMBIN TIME 16.1 SECONDS (9.0-12.0)
[2018-02-04 02:21] LABS: ALANINE AMINOTRANSFERASE 49 U/L (12-78); ALBUMIN 1.7 G/DL (3.4-5.0); ALKALINE PHOSPHATASE 200 IU/L (46-116); ANION GAP 7 (8-16); ASPARTATE AMINO TRANSFERASE 86 U/L (10-37); BASOPHILS % (AUTO) 0.5 % (0-1); BILIRUBIN,TOTAL 4.4 MG/DL (0.1-1.0); BLOOD UREA NITROGEN 21 MG/DL (7-18); BUN/CREATININE RATIO 18.8 (6.6-38.0); CALCIUM 7.6 MG/DL (8.5-10.1); CHLORIDE 103 MMOL/L (99-107); CREATININE 1.12 MG/DL (0.40-0.90); EOSINOPHILS # (AUTO) 0.1 X10'3 (0-0.9); EOSINOPHILS % (AUTO) 1.2 % (0-6); GLUCOSE 127 MG/DL (70-104); HEMATOCRIT 22.7 % (35.0-45.0); HEMOGLOBIN 7.9 g/dl (12.0-16.0); LYMPHOCYTES # (AUTO) 1.2 X10'3 (1.1-4.8); LYMPHOCYTES % (AUTO) 14.4 % (21-51); MAGNESIUM 1.7 MG/DL (1.5-2.4); MEAN CORPUSCULAR HEMOGLOBIN 32.7 PG (27.0-31.0); MEAN CORPUSCULAR HGB CONC 34.6 % (33.0-36.5); MEAN CORPUSCULAR VOLUME 94.3 FL (78-98); MEAN PLATELET VOLUME 9.8 FL (7.4-10.4); MONOCYTES # (AUTO) 0.6 X10'3 (0-0.9); MONOCYTES % (AUTO) 7.7 % (2-12); NEUTROPHILS # (AUTO) 6.3 X10'3 (1.8-7.7); NEUTROPHILS % (AUTO) 76.2 % (42-75); POTASSIUM 4.1 MMOL/L (3.5-5.1); RED CELL DISTRIBUTION WIDTH 24.4 % (11.5-14.5); SODIUM 137 MMOL/L (135-145); TOTAL CARBON DIOXIDE 26.6 MMOL/L (24-32); WHITE BLOOD COUNT 8.2 X10'3 (4.5-11.0); eGFR 53 ML/MIN
[2018-02-04 02:30] LABS: PLATELET COUNT 48 X10'3 (140-440)
[2018-02-04 02:36] LABS: ALBUMIN/GLOBULIN RATIO 0.4 (1.1-1.5); PHOSPHORUS 4.4 MG/DL (2.3-4.5); TOTAL PROTEIN 5.6 G/DL (6.4-8.2)
[2018-02-04 02:46] LABS: ANISOCYTOSIS 3+; PLATELET ESTIMATE DECREASED; TOTAL CELLS COUNTED 100
[2018-02-04 02:47] LABS: BURR CELLS 1+; TARGET CELLS 1+
[2018-02-04] MEDS: propranolol 10mg tablet PO SCH ×2 (06:40→20:00)
[2018-02-04] MEDS: K, MAG and/or Phos replacement - Verify level? MC SCH (08:00)
[2018-02-04] MEDS: levoTHYROXINE sod inj. 100mcg/5 ml vial IV SCH (08:50)
[2018-02-04] MEDS: pantoprazole 40 MG vial IV SCH ×2 (08:52→20:13)
[2018-02-04] MEDS: rifaximin 550mg tablet PO SCH ×2 (08:53→20:13)
[2018-02-04] MEDS: lactobacillus rhamnosus 10,000 MMU CELLS/CAPSULE PO SCH ×2 (08:53→20:14)
[2018-02-04] MEDS ORDERED: normal saline 1000ml 250 ML IV PRN (09:31)
[2018-02-04] MEDS ORDERED: epoetin 20,000 units/ml inj IV ONE (09:35)
[2018-02-04] MEDS ORDERED: heparin 1,000 units/ml 10ml inj HE ONE ×2 (09:35)
[2018-02-04] MEDS ORDERED: albumin (human) 25% 100ml IV 100 ML IV PRN (09:35)
[2018-02-04] MEDS: [UNRECOGNIZED DRUG - REMARK] IV SCH ×3 (10:37)
[2018-02-04] MEDS: DOPamine 400mg/D5W 250ml 250 ML IV SCH (10:45)
[2018-02-04] MEDS: ipratropium/albuterol 3ml nebule NEB PRN (22:21)
[2018-02-05] VITALS (24 sets, daily range): BP systolic 90–112; BP diastolic 48–81
[2018-02-05] MEDS: piperacillin/tazo 3.375gm/50ml 50 ML IV SCH ×3 (00:15→16:11)
[2018-02-05] MEDS: NORepinephrine 8mg/ 250ml NS 250 ML IV SCH (00:20)
[2018-02-05] MEDS: lactulose 20gm/30ml cup PO SCH ×3 (02:15→19:53)
[2018-02-05 02:50] LABS: BASOPHILS % (AUTO) 0.3 % (0-1); EOSINOPHILS # (AUTO) 0.1 X10'3 (0-0.9); EOSINOPHILS % (AUTO) 1.2 % (0-6); HEMOGLOBIN 7.3 g/dl (12.0-16.0); LYMPHOCYTES # (AUTO) 1.2 X10'3 (1.1-4.8); LYMPHOCYTES % (AUTO) 13.8 % (21-51); MEAN CORPUSCULAR HEMOGLOBIN 32.3 PG (27.0-31.0); MEAN CORPUSCULAR HGB CONC 33.6 % (33.0-36.5); MEAN CORPUSCULAR VOLUME 96.2 FL (78-98); MEAN PLATELET VOLUME 9.4 FL (7.4-10.4); MONOCYTES # (AUTO) 0.7 X10'3 (0-0.9); MONOCYTES % (AUTO) 8.7 % (2-12); NEUTROPHILS # (AUTO) 6.4 X10'3 (1.8-7.7); RED BLOOD COUNT 2.26 X10'6 (4.20-5.60); RED CELL DISTRIBUTION WIDTH 27.2 % (11.5-14.5); WHITE BLOOD COUNT 8.4 X10'3 (4.5-11.0)
[2018-02-05 02:56] LABS: HEMATOCRIT 21.7 % (35.0-45.0); PLATELET COUNT 44 X10'3 (140-440)
[2018-02-05 03:11] LABS: ALANINE AMINOTRANSFERASE 44 U/L (12-78); ALBUMIN 1.9 G/DL (3.4-5.0); ALKALINE PHOSPHATASE 223 IU/L (46-116); ANION GAP 5 (8-16); ASPARTATE AMINO TRANSFERASE 73 U/L (10-37); BILIRUBIN,TOTAL 3.7 MG/DL (0.1-1.0); BLOOD UREA NITROGEN 13 MG/DL (7-18); BUN/CREATININE RATIO 15.3 (6.6-38.0); CALCIUM 7.8 MG/DL (8.5-10.1); CHLORIDE 104 MMOL/L (99-107); CREATININE 0.85 MG/DL (0.40-0.90); GLUCOSE 121 MG/DL (70-104); MAGNESIUM 1.8 MG/DL (1.5-2.4); POTASSIUM 3.4 MMOL/L (3.5-5.1); SODIUM 140 MMOL/L (135-145); eGFR 73 ML/MIN
[2018-02-05 03:21] LABS: TOTAL CELLS COUNTED 100
[2018-02-05 03:22] LABS: ANISOCYTOSIS 3+; PLATELET ESTIMATE DECREASED; TARGET CELLS 1+
[2018-02-05 03:23] LABS: ALBUMIN/GLOBULIN RATIO 0.5 (1.1-1.5); PHOSPHORUS 2.9 MG/DL (2.3-4.5); TOTAL PROTEIN 5.8 G/DL (6.4-8.2)
[2018-02-05 03:31] LABS: INR 1.4 INR; PARTIAL THROMBOPLASTIN TIME 39 SECONDS (22-32); PROTHROMBIN TIME 14.6 SECONDS (9.0-12.0)
[2018-02-05] MEDS: potassium Cl 20mEq/100mL bag 100 ML IV PRN ×2 (03:34→05:55)
[2018-02-05] MEDS: propranolol 10mg tablet PO SCH ×2 (07:19→19:53)
[2018-02-05] MEDS: levoTHYROXINE sod inj. 100mcg/5 ml vial IV SCH (07:57)
[2018-02-05] MEDS: rifaximin 550mg tablet PO SCH ×2 (07:58→19:53)
[2018-02-05] MEDS: lactobacillus rhamnosus 10,000 MMU CELLS/CAPSULE PO SCH ×2 (07:58→19:54)
[2018-02-05] MEDS: pantoprazole 40 MG vial IV SCH ×2 (07:58→19:53)
[2018-02-05] MEDS: K, MAG and/or Phos replacement - Verify level? MC SCH (08:00)
[2018-02-05 09:12] LABS: HEMOGLOBIN 7.4 g/dl (12.0-16.0); MEAN CORPUSCULAR HEMOGLOBIN 32.5 PG (27.0-31.0); MEAN CORPUSCULAR VOLUME 95.4 FL (78-98); MEAN PLATELET VOLUME 9.5 FL (7.4-10.4); RED BLOOD COUNT 2.29 X10'6 (4.20-5.60); RED CELL DISTRIBUTION WIDTH 27.7 % (11.5-14.5); WHITE BLOOD COUNT 6.3 X10'3 (4.5-11.0)
[2018-02-05 09:25] LABS: HEMATOCRIT 21.9 % (35.0-45.0); PLATELET COUNT 42 X10'3 (140-440)
[2018-02-05] MEDS: Chloraseptic (Phenol) Spray 177ml MM PRN (18:41)
[2018-02-06] VITALS (24 sets, daily range): BP systolic 91–120; BP diastolic 63–88
[2018-02-06] MEDS: piperacillin/tazo 3.375gm/50ml 50 ML IV SCH ×2 (00:41→07:35)
[2018-02-06 03:56] LABS: BASOPHILS % (AUTO) 0.6 % (0-1); EOSINOPHILS # (AUTO) 0.1 X10'3 (0-0.9); EOSINOPHILS % (AUTO) 1.5 % (0-6); HEMATOCRIT 23.4 % (35.0-45.0); HEMOGLOBIN 7.8 g/dl (12.0-16.0); LYMPHOCYTES # (AUTO) 1.2 X10'3 (1.1-4.8); LYMPHOCYTES % (AUTO) 16.7 % (21-51); MEAN CORPUSCULAR HEMOGLOBIN 32.2 PG (27.0-31.0); MEAN CORPUSCULAR HGB CONC 33.4 % (33.0-36.5); MEAN CORPUSCULAR VOLUME 96.6 FL (78-98); MEAN PLATELET VOLUME 11.3 FL (7.4-10.4); MONOCYTES # (AUTO) 0.8 X10'3 (0-0.9); MONOCYTES % (AUTO) 11.3 % (2-12); NEUTROPHILS % (AUTO) 69.9 % (42-75); PLATELET COUNT 64 X10'3 (140-440); RED BLOOD COUNT 2.42 X10'6 (4.20-5.60); RED CELL DISTRIBUTION WIDTH 27.5 % (11.5-14.5); WHITE BLOOD COUNT 7.2 X10'3 (4.5-11.0)
[2018-02-06 04:07] LABS: INR 1.4 INR; PARTIAL THROMBOPLASTIN TIME 35 SECONDS (22-32); PROTHROMBIN TIME 14.1 SECONDS (9.0-12.0)
[2018-02-06 04:12] LABS: ALANINE AMINOTRANSFERASE 50 U/L (12-78); ALBUMIN 1.8 G/DL (3.4-5.0); ALKALINE PHOSPHATASE 271 IU/L (46-116); ANION GAP 5 (8-16); ASPARTATE AMINO TRANSFERASE 85 U/L (10-37); BILIRUBIN,TOTAL 3.3 MG/DL (0.1-1.0); BLOOD UREA NITROGEN 20 MG/DL (7-18); BUN/CREATININE RATIO 18.9 (6.6-38.0); CALCIUM 7.7 MG/DL (8.5-10.1); CHLORIDE 107 MMOL/L (99-107); CREATININE 1.06 MG/DL (0.40-0.90); GLUCOSE 100 MG/DL (70-104); MAGNESIUM 1.9 MG/DL (1.5-2.4); PREALBUMIN 6.3 MG/DL (19-36); SODIUM 143 MMOL/L (135-145); eGFR 57 ML/MIN
[2018-02-06 04:15] LABS: ALBUMIN/GLOBULIN RATIO 0.4 (1.1-1.5); PHOSPHORUS 2.7 MG/DL (2.3-4.5); POTASSIUM 3.4 MMOL/L (3.5-5.1); TOTAL PROTEIN 6.3 G/DL (6.4-8.2); TRIGLYCERIDES 74 MG/DL (20-135)
[2018-02-06 04:50] LABS: ANISOCYTOSIS 3+; BURR CELLS FEW; LARGE PLATELETS FEW; PLATELET ESTIMATE DECREASED; POLYCHROMASIA 1+; TARGET CELLS FEW
[2018-02-06] MEDS: potassium Cl 20mEq/100mL bag 100 ML IV PRN ×2 (06:49→08:45)
[2018-02-06] MEDS: propranolol 10mg tablet PO SCH ×2 (07:35→19:57)
[2018-02-06] MEDS: levoTHYROXINE sod inj. 100mcg/5 ml vial IV SCH (07:35)
[2018-02-06] MEDS: lactulose 20gm/30ml cup PO SCH ×2 (07:35→19:58)
[2018-02-06] MEDS: lactobacillus rhamnosus 10,000 MMU CELLS/CAPSULE PO SCH ×2 (07:35→19:57)
[2018-02-06] MEDS: pantoprazole 40 MG vial IV SCH ×2 (07:35→19:58)
[2018-02-06] MEDS: rifaximin 550mg tablet PO SCH ×2 (07:35→19:57)
[2018-02-06] MEDS ORDERED: LIDOcaine 1% (10mg/ml) 2ml vial SQ ONE (08:00)
[2018-02-06] MEDS ORDERED: epoetin 20,000 units/ml inj IV ONE (08:00)
[2018-02-06] MEDS ORDERED: heparin 1,000 units/ml 10ml inj HE ONE ×2 (08:00)
[2018-02-06] MEDS: K, MAG and/or Phos replacement - Verify level? MC SCH (08:00)
[2018-02-06] MEDS ORDERED: heparin 1,000unit/ml 10ml vial 10 ML IV ONE (08:00)
[2018-02-06] MEDS: NORepinephrine 8mg/ 250ml NS 250 ML IV SCH (11:05)
[2018-02-06] MEDS: ondansetron/PF 4mg/2ml inj IV PRN (11:07)
[2018-02-06] MEDS ORDERED: diphenhydrAMINE 50 mg/ml inj IV ONE (11:40)
[2018-02-06] MEDS ORDERED: albumin (human) 25% 100ml IV 100 ML IV PRN (11:40)
[2018-02-06] MEDS: Chloraseptic (Phenol) Spray 177ml MM PRN (12:35)
[2018-02-06] MEDS ORDERED: OXYcodone 10 MG/0.5 ML ORAL syringe PO PRN (17:05)
[2018-02-06 18:00] LABS: CLARITY,URINE CLOUDY (Clear); COLOR,URINE AMBER (Yellow); GLUCOSE, URINE 100 mg/dl (Neg); KETONES,URINE TRACE mg/dl (Neg); LEUKOCYTE ESTERASE ,URINE TRACE (Neg); NITRITES, URINE POSITIVE (Neg); OCCULT BLOOD,URINE LARGE (Neg); PROTEIN,URINE 100 mg/dl (Neg)
[2018-02-06 18:26] LABS: UA COLLECTION TYPE FOLEY CATH
[2018-02-06 18:31] LABS: WBC,URINE 30-50 /HPF (0-4)
[2018-02-06 18:32] LABS: BACTERIA,URINE 3+ /HPF (Neg); SQUAMOUS EPITHELIAL CELL,UR MANY /LPF (FEW); YEAST MODERATE /HPF (NEGATIVE)
[2018-02-06 18:33] LABS: AMORPHOUS URATES 1+
[2018-02-07] VITALS (23 sets, daily range): BP systolic 95–130; BP diastolic 68–94
[2018-02-07] MEDS: NORepinephrine 8mg/ 250ml NS 250 ML IV SCH (00:20)
[2018-02-07 04:10] LABS: BASOPHILS % (AUTO) 0.4 % (0-1); EOSINOPHILS # (AUTO) 0.1 X10'3 (0-0.9); EOSINOPHILS % (AUTO) 1.2 % (0-6); HEMATOCRIT 23.5 % (35.0-45.0); HEMOGLOBIN 7.7 g/dl (12.0-16.0); LYMPHOCYTES # (AUTO) 1.8 X10'3 (1.1-4.8); LYMPHOCYTES % (AUTO) 20.9 % (21-51); MEAN CORPUSCULAR HEMOGLOBIN 32.1 PG (27.0-31.0); MEAN CORPUSCULAR HGB CONC 32.9 % (33.0-36.5); MEAN CORPUSCULAR VOLUME 97.5 FL (78-98); MEAN PLATELET VOLUME 11.7 FL (7.4-10.4); MONOCYTES # (AUTO) 0.7 X10'3 (0-0.9); NEUTROPHILS # (AUTO) 5.9 X10'3 (1.8-7.7); NEUTROPHILS % (AUTO) 69.5 % (42-75); PLATELET COUNT 75 X10'3 (140-440); RED BLOOD COUNT 2.41 X10'6 (4.20-5.60); WHITE BLOOD COUNT 8.5 X10'3 (4.5-11.0)
[2018-02-07 04:12] LABS: INR 1.3 INR; PARTIAL THROMBOPLASTIN TIME 35 SECONDS (22-32); PROTHROMBIN TIME 13.6 SECONDS (9.0-12.0)
[2018-02-07 04:17] LABS: ALANINE AMINOTRANSFERASE 44 U/L (12-78); ALBUMIN 2.1 G/DL (3.4-5.0); ALKALINE PHOSPHATASE 210 IU/L (46-116); ANION GAP 5 (8-16); ASPARTATE AMINO TRANSFERASE 67 U/L (10-37); BILIRUBIN,TOTAL 3.1 MG/DL (0.1-1.0); BLOOD UREA NITROGEN 15 MG/DL (7-18); BUN/CREATININE RATIO 14.9 (6.6-38.0); CHLORIDE 106 MMOL/L (99-107); CREATININE 1.01 MG/DL (0.40-0.90); GLUCOSE 98 MG/DL (70-104); MAGNESIUM 1.9 MG/DL (1.5-2.4); POTASSIUM 3.4 MMOL/L (3.5-5.1); SODIUM 141 MMOL/L (135-145); TOTAL CARBON DIOXIDE 30.4 MMOL/L (24-32); eGFR 60 ML/MIN
[2018-02-07 05:01] LABS: TOTAL CELLS COUNTED 100
[2018-02-07 05:03] LABS: PLATELET ESTIMATE DECREASED; POLYCHROMASIA 1+; TARGET CELLS FEW
[2018-02-07 05:04] LABS: SCHISTOCYTES FEW
[2018-02-07 05:05] LABS: GIANT PLATELET FEW; LARGE PLATELETS FEW
[2018-02-07 05:58] LABS: ALBUMIN/GLOBULIN RATIO 0.5 (1.1-1.5); PHOSPHORUS 2.4 MG/DL (2.3-4.5); TOTAL PROTEIN 6.6 G/DL (6.4-8.2)
[2018-02-07] MEDS: potassium Cl 20mEq/100mL bag 100 ML IV PRN (06:04)
[2018-02-07] MEDS ORDERED: magnesium Cl slow-release 64mg tablet PO PRN (06:55)
[2018-02-07] MEDS ORDERED: magnesium 1gm/100ml D5W IVPB 100 ML IV PRN (06:55)
[2018-02-07] MEDS ORDERED: potassium Cl 40MEQ/250ML bag 250 ML IV PRN ×2 (06:55)
[2018-02-07] MEDS ORDERED: potassium Cl 20 mEq SR tablet PO PRN ×2 (06:55)
[2018-02-07] MEDS ORDERED: magnesium 4gm in 100ml NS 100 ML IV PRN (06:55)
[2018-02-07 07:54] LABS: HBSAG SCREEN Negative (Negative)
[2018-02-07] MEDS: K and/or MAG REPLACEMENT MC SCH (08:00)
[2018-02-07] MEDS: K, MAG and/or Phos replacement - Verify level? MC SCH (08:00)
[2018-02-07] MEDS: propranolol 10mg tablet PO SCH ×2 (08:00→19:45)
[2018-02-07] MEDS: lactobacillus rhamnosus 10,000 MMU CELLS/CAPSULE PO SCH ×2 (08:11→19:44)
[2018-02-07] MEDS: rifaximin 550mg tablet PO SCH ×2 (08:11→19:45)
[2018-02-07] MEDS: pantoprazole 40 MG vial IV SCH ×2 (08:11→19:44)
[2018-02-07] MEDS: levoTHYROXINE sod inj. 100mcg/5 ml vial IV SCH (08:11)
[2018-02-07] MEDS: lactulose 20gm/30ml cup PO SCH (08:15)
[2018-02-07] MEDS ORDERED: fentaNYL/PF 50MCG/1 ML 2ML syringe ONE (10:54)
[2018-02-07] MEDS ORDERED: heparin 1,000unit/ml 10ml vial 10 ML ONE (10:57)
[2018-02-07] MEDS ORDERED: LIDOcaine 0.5% (5mg/ml) 50ml vial ONE (11:12)
[2018-02-07] MEDS ORDERED: OXYcodone 10 MG/0.5 ML ORAL syringe PO PRN (15:30)
[2018-02-07] MEDS: oxyCODONE IR 5mg (immed. release) tablet PO PRN ×2 (15:48→21:51)
[2018-02-07] MEDS: diphenhydrAMINE 25mg capsule PO PRN (21:30)
[2018-02-08] VITALS (23 sets, daily range): BP systolic 77–148; BP diastolic 52–84
[2018-02-08 03:20] LABS: BASOPHILS % (AUTO) 0.5 % (0-1); EOSINOPHILS # (AUTO) 0.1 X10'3 (0-0.9); EOSINOPHILS % (AUTO) 1.4 % (0-6); HEMOGLOBIN 7.7 g/dl (12.0-16.0); LYMPHOCYTES # (AUTO) 2.1 X10'3 (1.1-4.8); LYMPHOCYTES % (AUTO) 22.8 % (21-51); MEAN CORPUSCULAR HEMOGLOBIN 32.8 PG (27.0-31.0); MEAN CORPUSCULAR HGB CONC 33.4 % (33.0-36.5); MEAN CORPUSCULAR VOLUME 98.3 FL (78-98); MEAN PLATELET VOLUME 11.4 FL (7.4-10.4); MONOCYTES # (AUTO) 0.7 X10'3 (0-0.9); MONOCYTES % (AUTO) 7.9 % (2-12); NEUTROPHILS # (AUTO) 6.2 X10'3 (1.8-7.7); NEUTROPHILS % (AUTO) 67.4 % (42-75); PLATELET COUNT 94 X10'3 (140-440); RED BLOOD COUNT 2.34 X10'6 (4.20-5.60); RED CELL DISTRIBUTION WIDTH 26.9 % (11.5-14.5); WHITE BLOOD COUNT 9.2 X10'3 (4.5-11.0)
[2018-02-08 03:31] LABS: INR 1.4 INR; PARTIAL THROMBOPLASTIN TIME 35 SECONDS (22-32); PROTHROMBIN TIME 14.1 SECONDS (9.0-12.0)
[2018-02-08 03:36] LABS: ALANINE AMINOTRANSFERASE 42 U/L (12-78); ALBUMIN 1.8 G/DL (3.4-5.0); ALKALINE PHOSPHATASE 185 IU/L (46-116); ANION GAP 5 (8-16); ASPARTATE AMINO TRANSFERASE 68 U/L (10-37); BILIRUBIN,TOTAL 3.4 MG/DL (0.1-1.0); BLOOD UREA NITROGEN 22 MG/DL (7-18); BUN/CREATININE RATIO 21.2 (6.6-38.0); CHLORIDE 104 MMOL/L (99-107); CREATININE 1.04 MG/DL (0.40-0.90); GLUCOSE 58 MG/DL (70-104); MAGNESIUM 1.6 MG/DL (1.5-2.4); POTASSIUM 4.4 MMOL/L (3.5-5.1); SODIUM 138 MMOL/L (135-145); TOTAL CARBON DIOXIDE 29.3 MMOL/L (24-32); eGFR 58 ML/MIN
[2018-02-08 03:39] LABS: ALBUMIN/GLOBULIN RATIO 0.4 (1.1-1.5); PHOSPHORUS 3.4 MG/DL (2.3-4.5); TOTAL PROTEIN 6.5 G/DL (6.4-8.2)
[2018-02-08 05:06] LABS: TOTAL CELLS COUNTED 100
[2018-02-08 05:07] LABS: ANISOCYTOSIS 3+; PLATELET ESTIMATE DECREASED; POLYCHROMASIA 1+
[2018-02-08 05:08] LABS: TOXIC GRANULATION 2+
[2018-02-08 05:09] LABS: HYPOCHROMASIA 1+
[2018-02-08 05:10] LABS: LARGE PLATELETS FEW; TARGET CELLS FEW
[2018-02-08] MEDS: lactobacillus rhamnosus 10,000 MMU CELLS/CAPSULE PO SCH ×2 (07:21→20:47)
[2018-02-08] MEDS: multivitamins, therapeutics tablet PO SCH (07:21)
[2018-02-08] MEDS: rifaximin 550mg tablet PO SCH ×2 (07:22→20:47)
[2018-02-08] MEDS: diphenhydrAMINE 25mg capsule PO PRN ×2 (07:23→16:05)
[2018-02-08] MEDS: propranolol 10mg tablet PO SCH ×2 (07:24→20:00)
[2018-02-08] MEDS: lactulose 20gm/30ml cup PO SCH (07:26)
[2018-02-08] MEDS: oxyCODONE IR 5mg (immed. release) tablet PO PRN ×3 (07:31→20:48)
[2018-02-08] MEDS: pantoprazole 40 MG vial IV SCH ×2 (07:32→20:49)
[2018-02-08] MEDS: levoTHYROXINE sod inj. 100mcg/5 ml vial IV SCH (07:34)
[2018-02-08] MEDS ORDERED: heparin 1,000 units/ml 10ml inj HE ONE ×2 (08:00)
[2018-02-08] MEDS: K and/or MAG REPLACEMENT MC SCH (08:00)
[2018-02-08] MEDS: K, MAG and/or Phos replacement - Verify level? MC SCH (08:00)
[2018-02-08] MEDS ORDERED: heparin 1,000unit/ml 10ml vial 10 ML IV ONE (08:00)
[2018-02-08] MEDS ORDERED: epoetin 20,000 units/ml inj IV ONE (08:00)
[2018-02-08] MEDS ORDERED: normal saline 1000ml 250 ML IV PRN (08:00)
[2018-02-08] MEDS: ondansetron/PF 4mg/2ml inj IV PRN (09:01)
[2018-02-08] MEDS: albumin (human) 25% 100ml IV 100 ML IV PRN ×2 (10:15→10:57)
[2018-02-08] MEDS ORDERED: albumin (human) 25% 100ml IV 100 ML IV PRN (11:35)
[2018-02-08] MEDS: Dextrose 10%-water IV solution 1,000 ML IV SCH (22:22)
[2018-02-09] VITALS (24 sets, daily range): BP systolic 78–128; BP diastolic 49–79
[2018-02-09] MEDS: NORepinephrine 8mg/ 250ml NS 250 ML IV SCH (00:20)
[2018-02-09] MEDS: diphenhydrAMINE 25mg capsule PO PRN ×3 (01:06→19:26)
[2018-02-09] MEDS: oxyCODONE IR 5mg (immed. release) tablet PO PRN ×3 (03:27→19:34)
[2018-02-09 03:36] LABS: ALANINE AMINOTRANSFERASE 44 U/L (12-78); ALBUMIN 2.1 G/DL (3.4-5.0); ALBUMIN/GLOBULIN RATIO 0.5 (1.1-1.5); ALKALINE PHOSPHATASE 182 IU/L (46-116); ANION GAP 3 (8-16); ASPARTATE AMINO TRANSFERASE 71 U/L (10-37); BILIRUBIN,TOTAL 2.9 MG/DL (0.1-1.0); BLOOD UREA NITROGEN 14 MG/DL (7-18); BUN/CREATININE RATIO 16.9 (6.6-38.0); CALCIUM 7.9 MG/DL (8.5-10.1); CHLORIDE 102 MMOL/L (99-107); CREATININE 0.83 MG/DL (0.40-0.90); GLUCOSE 65 MG/DL (70-104); MAGNESIUM 1.7 MG/DL (1.5-2.4); PHOSPHORUS 3.1 MG/DL (2.3-4.5); POTASSIUM 4.2 MMOL/L (3.5-5.1); SODIUM 136 MMOL/L (135-145); TOTAL CARBON DIOXIDE 30.6 MMOL/L (24-32); TOTAL PROTEIN 6.2 G/DL (6.4-8.2); eGFR 75 ML/MIN
[2018-02-09 03:38] LABS: BASOPHILS # (AUTO) 0.1 X10'3 (0-0.2); BASOPHILS % (AUTO) 0.7 % (0-1); EOSINOPHILS # (AUTO) 0.2 X10'3 (0-0.9); HEMATOCRIT 24.4 % (35.0-45.0); HEMOGLOBIN 8.1 g/dl (12.0-16.0); LYMPHOCYTES # (AUTO) 2.5 X10'3 (1.1-4.8); LYMPHOCYTES % (AUTO) 26.9 % (21-51); MEAN CORPUSCULAR HEMOGLOBIN 32.9 PG (27.0-31.0); MEAN CORPUSCULAR HGB CONC 33.2 % (33.0-36.5); MEAN CORPUSCULAR VOLUME 99.2 FL (78-98); MEAN PLATELET VOLUME 11.7 FL (7.4-10.4); MONOCYTES # (AUTO) 0.6 X10'3 (0-0.9); MONOCYTES % (AUTO) 6.1 % (2-12); NEUTROPHILS # (AUTO) 6.1 X10'3 (1.8-7.7); NEUTROPHILS % (AUTO) 64.3 % (42-75); PLATELET COUNT 126 X10'3 (140-440); RED BLOOD COUNT 2.46 X10'6 (4.20-5.60); RED CELL DISTRIBUTION WIDTH 27.1 % (11.5-14.5); WHITE BLOOD COUNT 9.5 X10'3 (4.5-11.0)
[2018-02-09 03:45] LABS: INR 1.4 INR; PARTIAL THROMBOPLASTIN TIME 38 SECONDS (22-32); PROTHROMBIN TIME 14.2 SECONDS (9.0-12.0)
[2018-02-09 04:23] LABS: TOTAL CELLS COUNTED 100
[2018-02-09 04:24] LABS: ANISOCYTOSIS 3+; MICROCYTOSIS FEW; PLATELET ESTIMATE DECREASED; POLYCHROMASIA 1+
[2018-02-09 04:25] LABS: HYPOCHROMASIA 1+; TARGET CELLS FEW; TOXIC GRANULATION 1+
[2018-02-09 04:27] LABS: LARGE PLATELETS FEW
[2018-02-09] MEDS: K and/or MAG REPLACEMENT MC SCH (07:47)
[2018-02-09] MEDS: propranolol 10mg tablet PO SCH ×2 (07:55→20:00)
[2018-02-09] MEDS: K, MAG and/or Phos replacement - Verify level? MC SCH (08:00)
[2018-02-09] MEDS: levoTHYROXINE sod inj. 100mcg/5 ml vial IV SCH (08:00)
[2018-02-09] MEDS: lactulose 20gm/30ml cup PO SCH (08:01)
[2018-02-09] MEDS: multivitamins, therapeutics tablet PO SCH (08:01)
[2018-02-09] MEDS: rifaximin 550mg tablet PO SCH ×2 (08:01→19:26)
[2018-02-09] MEDS: pantoprazole 40 MG vial IV SCH ×2 (08:01→19:25)
[2018-02-09] MEDS: lactobacillus rhamnosus 10,000 MMU CELLS/CAPSULE PO SCH ×2 (08:02→19:26)
[2018-02-09] MEDS: ipratropium/albuterol 3ml nebule NEB PRN ×2 (19:03→23:06)
[2018-02-09] MEDS: Dextrose 10%-water IV solution 1,000 ML IV SCH (22:48)
[2018-02-10] VITALS (23 sets, daily range): BP systolic 79–118; BP diastolic 41–86
[2018-02-10] MEDS: diphenhydrAMINE 25mg capsule PO PRN ×3 (01:44→17:14)
[2018-02-10 02:43] LABS: BASOPHILS % (AUTO) 0.4 % (0-1); EOSINOPHILS # (AUTO) 0.2 X10'3 (0-0.9); EOSINOPHILS % (AUTO) 1.8 % (0-6); HEMATOCRIT 24.3 % (35.0-45.0); HEMOGLOBIN 7.9 g/dl (12.0-16.0); LYMPHOCYTES # (AUTO) 2.5 X10'3 (1.1-4.8); LYMPHOCYTES % (AUTO) 24.8 % (21-51); MEAN CORPUSCULAR HEMOGLOBIN 32.6 PG (27.0-31.0); MEAN CORPUSCULAR HGB CONC 32.6 % (33.0-36.5); MEAN CORPUSCULAR VOLUME 100.1 FL (78-98); MONOCYTES # (AUTO) 0.7 X10'3 (0-0.9); MONOCYTES % (AUTO) 6.6 % (2-12); NEUTROPHILS # (AUTO) 6.6 X10'3 (1.8-7.7); NEUTROPHILS % (AUTO) 66.4 % (42-75); PLATELET COUNT 158 X10'3 (140-440); RED BLOOD COUNT 2.42 X10'6 (4.20-5.60); RED CELL DISTRIBUTION WIDTH 27.3 % (11.5-14.5)
[2018-02-10 02:50] LABS: INR 1.5 INR; PARTIAL THROMBOPLASTIN TIME 38 SECONDS (22-32)
[2018-02-10 02:55] LABS: ALANINE AMINOTRANSFERASE 43 U/L (12-78); ALBUMIN/GLOBULIN RATIO 0.5 (1.1-1.5); ALKALINE PHOSPHATASE 188 IU/L (46-116); ANION GAP 7 (8-16); ASPARTATE AMINO TRANSFERASE 65 U/L (10-37); BILIRUBIN,TOTAL 2.8 MG/DL (0.1-1.0); BLOOD UREA NITROGEN 16 MG/DL (7-18); BUN/CREATININE RATIO 16.7 (6.6-38.0); CALCIUM 8.1 MG/DL (8.5-10.1); CHLORIDE 100 MMOL/L (99-107); CREATININE 0.96 MG/DL (0.40-0.90); GLUCOSE 82 MG/DL (70-104); MAGNESIUM 1.6 MG/DL (1.5-2.4); PHOSPHORUS 4.2 MG/DL (2.3-4.5); POTASSIUM 4.2 MMOL/L (3.5-5.1); PREALBUMIN 6.1 MG/DL (19-36); SODIUM 133 MMOL/L (135-145); TOTAL CARBON DIOXIDE 26.1 MMOL/L (24-32); TOTAL PROTEIN 6.3 G/DL (6.4-8.2); TRIGLYCERIDES 68 MG/DL (20-135); eGFR 64 ML/MIN
[2018-02-10 04:20] LABS: ANISOCYTOSIS 3+; LARGE PLATELETS FEW; PLATELET ESTIMATE NORMAL; TOTAL CELLS COUNTED 100
[2018-02-10 04:21] LABS: HYPOCHROMASIA 1+; POLYCHROMASIA 1+; TOXIC GRANULATION 2+
[2018-02-10 04:22] LABS: TARGET CELLS FEW
[2018-02-10] MEDS: oxyCODONE IR 5mg (immed. release) tablet PO PRN ×2 (05:32→17:14)
[2018-02-10] MEDS: K, MAG and/or Phos replacement - Verify level? MC SCH (08:00)
[2018-02-10] MEDS: propranolol 10mg tablet PO SCH ×2 (08:00→20:00)
[2018-02-10] MEDS: pantoprazole 40 MG vial IV SCH (09:36)
[2018-02-10] MEDS: rifaximin 550mg tablet PO SCH ×2 (09:37→21:13)
[2018-02-10] MEDS: lactobacillus rhamnosus 10,000 MMU CELLS/CAPSULE PO SCH ×2 (09:37→21:14)
[2018-02-10] MEDS: multivitamins, therapeutics tablet PO SCH (09:37)
[2018-02-10] MEDS: levoTHYROXINE sod inj. 100mcg/5 ml vial IV SCH (09:37)
[2018-02-10] MEDS: lactulose 20gm/30ml cup PO SCH (09:49)
[2018-02-10] MEDS: traMADol 50MG tablet PO SCH ×2 (14:00→21:14)
[2018-02-10] MEDS: ondansetron 4mg rapidly disintigrating tab PO SCH (14:21)
[2018-02-10] MEDS: ipratropium/albuterol 3ml nebule NEB PRN (19:04)
[2018-02-10] MEDS: spironolactone 25 MG tablet PO SCH (21:13)
[2018-02-10] MEDS: Dextrose 10%-water IV solution 1,000 ML IV SCH (21:13)
[2018-02-10] MEDS: famotidine 20mg tablet PO SCH (21:14)
[2018-02-10] MEDS: busPIRone 5mg tablet PO SCH (21:14)
[2018-02-11] VITALS: BP 116/82
[2018-02-11] MEDS: ondansetron 4mg rapidly disintigrating tab PO SCH ×3 (00:03→14:53)
[2018-02-11] MEDS: oxyCODONE IR 5mg (immed. release) tablet PO PRN ×3 (00:04→14:52)
[2018-02-11 01:00] VITALS: BP 92/73
[2018-02-11] MEDS: traMADol 50MG tablet PO SCH ×3 (02:00→14:53)
[2018-02-11 03:00] VITALS: BP 106/53
[2018-02-11 06:00] VITALS: BP 99/68
[2018-02-11] MEDS ORDERED: levoTHYROXINE 25mcg tablet PO SCH (07:00)
[2018-02-11] MEDS: busPIRone 5mg tablet PO SCH (07:34)
[2018-02-11] MEDS: famotidine 20mg tablet PO SCH (07:35)
[2018-02-11] MEDS: multivitamins, therapeutics tablet PO SCH (07:36)
[2018-02-11] MEDS: lactobacillus rhamnosus 10,000 MMU CELLS/CAPSULE PO SCH (07:36)
[2018-02-11] MEDS: diphenhydrAMINE 25mg capsule PO PRN (07:36)
[2018-02-11] MEDS: propranolol 10mg tablet PO SCH (07:38)
[2018-02-11] MEDS: spironolactone 25 MG tablet PO SCH (07:38)
[2018-02-11] MEDS ORDERED: lactulose 20gm/30ml cup PO SCH (08:00)
[2018-02-11] MEDS: rifaximin 550mg tablet PO SCH (08:00)
[2018-02-11] MEDS ORDERED: LIDOcaine 5% patch TP SCH (08:00)
[2018-02-11] MEDS ORDERED: folic acid 1mg tablet PO SCH (08:00)
[2018-02-11] MEDS: K, MAG and/or Phos replacement - Verify level? MC SCH (08:00)
[2018-02-11] MEDS ORDERED: normal saline 1000ml 250 ML IV PRN (08:47)
[2018-02-11] MEDS ORDERED: heparin 1,000unit/ml 10ml vial 10 ML IV ONE (08:47)
[2018-02-11] MEDS ORDERED: epoetin 20,000 units/ml inj IV ONE (08:50)
[2018-02-11] MEDS ORDERED: heparin 1,000 units/ml 10ml inj HE ONE ×2 (08:55)
[2018-02-11 11:00] VITALS: BP 99/61
[2018-02-11] MEDS ORDERED: diphenhydrAMINE 50 mg/ml inj IV PRN (12:50)
[2018-02-11 15:00] VITALS: BP 102/66
[2018-02-11] MEDS ORDERED: VIT1TABL50 PO (16:23)
== END 2018-02-11 18:55 | disposition home or self-care (01) | DRG 130 ==
LOC: ER 12:30 → ED HOLD 14:58 → ICU 2S 15:53 → PCU 3S 02-11 01:30
PROVIDERS: ATTEND Internal Medicine Critical Care Medicine
PROC: 5A1955Z Respiratory Ventilation, Greater than 96 Consecutive Hours (ICD-10-PCS; principal; 2018-01-27)
PROC: 0BH17EZ Insertion of Endotracheal Airway into Trachea, Via Natural or Artificial Opening (ICD-10-PCS; 2018-01-27)
PROC: 30233L1 Transfusion of Nonautologous Fresh Plasma into Peripheral Vein, Percutaneous Approach (ICD-10-PCS; 2018-01-27)
PROC: 30233N1 Transfusion of Nonautologous Red Blood Cells into Peripheral Vein, Percutaneous Approach (ICD-10-PCS; 2018-01-27)
PROC: 30233M1 Transfusion of Nonautologous Plasma Cryoprecipitate into Peripheral Vein, Percutaneous Approach (ICD-10-PCS; 2018-01-27)
PROC: 30233K1 Transfusion of Nonautologous Frozen Plasma into Peripheral Vein, Percutaneous Approach (ICD-10-PCS; 2018-01-27)
PROC: 02HV33Z Insertion of Infusion Device into Superior Vena Cava, Percutaneous Approach (ICD-10-PCS; 2018-01-27)
PROC: B548ZZA Ultrasonography of Superior Vena Cava, Guidance (ICD-10-PCS; 2018-01-27)
PROC: 0DJ08ZZ Inspection of Upper Intestinal Tract, Via Natural or Artificial Opening Endoscopic (ICD-10-PCS; 2018-01-27)
PROC: 30233R1 Transfusion of Nonautologous Platelets into Peripheral Vein, Percutaneous Approach (ICD-10-PCS; 2018-01-29)
PROC: 02HV33Z Insertion of Infusion Device into Superior Vena Cava, Percutaneous Approach (ICD-10-PCS; 2018-01-29)
PROC: B548ZZA Ultrasonography of Superior Vena Cava, Guidance (ICD-10-PCS; 2018-01-29)
PROC: 5A1D90Z Performance of Urinary Filtration, Continuous, Greater than 18 hours Per Day (ICD-10-PCS; 2018-01-29)
PROC: 5A1D90Z Performance of Urinary Filtration, Continuous, Greater than 18 hours Per Day (ICD-10-PCS; 2018-01-30)
PROC: 5A1D90Z Performance of Urinary Filtration, Continuous, Greater than 18 hours Per Day (ICD-10-PCS; 2018-01-31)
PROC: 0W9G3ZX Drainage of Peritoneal Cavity, Percutaneous Approach, Diagnostic (ICD-10-PCS; 2018-02-01)
PROC: 5A1D90Z Performance of Urinary Filtration, Continuous, Greater than 18 hours Per Day (ICD-10-PCS; 2018-02-01)
PROC: 5A1D90Z Performance of Urinary Filtration, Continuous, Greater than 18 hours Per Day (ICD-10-PCS; 2018-02-02)
PROC: 5A1D70Z Performance of Urinary Filtration, Intermittent, Less than 6 Hours Per Day (ICD-10-PCS; 2018-02-04)
PROC: 5A1D70Z Performance of Urinary Filtration, Intermittent, Less than 6 Hours Per Day (ICD-10-PCS; 2018-02-06)
PROC: 0JH63XZ Insertion of Tunneled Vascular Access Device into Chest Subcutaneous Tissue and Fascia, Percutaneous Approach (ICD-10-PCS; 2018-02-07)
PROC: 02HV33Z Insertion of Infusion Device into Superior Vena Cava, Percutaneous Approach (ICD-10-PCS; 2018-02-07)
PROC: B548ZZA Ultrasonography of Superior Vena Cava, Guidance (ICD-10-PCS; 2018-02-07)
PROC: B5181ZA Fluoroscopy of Superior Vena Cava using Low Osmolar Contrast, Guidance (ICD-10-PCS; 2018-02-07)
PROC: 5A1D70Z Performance of Urinary Filtration, Intermittent, Less than 6 Hours Per Day (ICD-10-PCS; 2018-02-08)
PROC: 5A1D70Z Performance of Urinary Filtration, Intermittent, Less than 6 Hours Per Day (ICD-10-PCS; 2018-02-11)
DX: J96.00 Acute respiratory failure, unspecified whether with hypoxia or hypercapnia (principal); N17.0 Acute kidney failure with tubular necrosis; K76.7 Hepatorenal syndrome; G93.40 Encephalopathy, unspecified; J18.9 Pneumonia, unspecified organism; K28.4 Chronic or unspecified gastrojejunal ulcer with hemorrhage; D68.9 Coagulation defect, unspecified; E87.2 Acidosis; K70.41 Alcoholic hepatic failure with coma; K70.31 Alcoholic cirrhosis of liver with ascites; R64 Cachexia; D64.9 Anemia, unspecified; Z98.84 Bariatric surgery status; Z79.899 Other long term (current) drug therapy; Z79.890 Hormone replacement therapy; Z68.23 Body mass index [BMI] 23.0-23.9, adult
CPT/HCPCS: 36415; 36556; 36558; 36569; 36600; 70450; 71045; 74018; 74176; 76705; 76937; 77001; 80048; 80053; 80069; 80202; 80305; 80320; 81001; 81025; 82140; 82330; 82550; 82803; 82948; 83605; 83735; 84100; 84132; 84134; 84145; 84439; 84443; 84478; 84480; 85018; 85025; 85027; 85379; 85384; 85610; 85730; 86885; 86900; 86901; 86920; 87040; 87070; 87075; 87077; 87088; 87102; 87186; 87340; 90935; 92616; 93005; 94002; 94003; 94640; 94760; 97110; 97116; 97162; 97530; 99291; 99292; A4310; A4315; A4333; A4353; A4357; A4649; A6209; A6212; A6213; A6250; A6253; A6257; A6402; A6449; A9270; C1750; C1758; C1894; C9113; G0257; J0131; J0456; J0696; J0780; J0885; J1200; J1265; J1644; J2001; J2150; J2250; J2354; J2405; J2543; J3010; J3370; J3411; J3430; J3475; J3480; J3490; J7030; J7042; J7060; P9012; P9016; P9035; P9047; P9059; Q0163

== ENCOUNTER 2018-02-22 04:12 | Emergency (ER) | payer MEDICAID ==
[~2018-02-22] VITALS: Ht 170.2 cm; Wt 68.0 kg
[~2018-02-22 04:12] MED LIST changes: -0.9 % SODIUM CHLORIDE 10 ML VIAL ONE; +LACT10SO PO; -LACT10SO32 PO; +VIT1TABL50 PO; -dextrose 50%-water 50ml dispensing syringe IV ONE; -etomidate 2mg/ml inj. ONE; -rocuronium 10mg/ml inj IV ONE; -thiamine 100mg tablet PO SCH
[2018-02-22] MEDS ORDERED: ondansetron/PF 4mg/2ml inj IV ONE ×2 (04:15→05:05)
[2018-02-22] MEDS ORDERED: morphine 4 MG/ML inj SYRINge IV PRN (04:15)
[2018-02-22] MEDS ORDERED: LIDOcaine 1.5% w/epinephrine 1:200,000 5ml ampul IJ ONE (04:15)
[2018-02-22 05:02] LABS: BASOPHILS % (AUTO) 0.4 % (0-1); EOSINOPHILS % (AUTO) 0.5 % (0-6); HEMATOCRIT 26.5 % (35.0-45.0); HEMOGLOBIN 9.1 g/dl (12.0-16.0); LYMPHOCYTES # (AUTO) 1.1 X10'3 (1.1-4.8); LYMPHOCYTES % (AUTO) 12.7 % (21-51); MEAN CORPUSCULAR HGB CONC 34.3 % (33.0-36.5); MEAN CORPUSCULAR VOLUME 99.2 FL (78-98); MEAN PLATELET VOLUME 9.8 FL (7.4-10.4); MONOCYTES # (AUTO) 0.4 X10'3 (0-0.9); MONOCYTES % (AUTO) 4.6 % (2-12); NEUTROPHILS # (AUTO) 7.3 X10'3 (1.8-7.7); NEUTROPHILS % (AUTO) 81.8 % (42-75); PLATELET COUNT 168 X10'3 (140-440); RED BLOOD COUNT 2.67 X10'6 (4.20-5.60); RED CELL DISTRIBUTION WIDTH 19.9 % (11.5-14.5); WHITE BLOOD COUNT 8.8 X10'3 (4.5-11.0)
[2018-02-22 05:09] LABS: ALANINE AMINOTRANSFERASE 25 U/L (12-78); ALBUMIN 2.1 G/DL (3.4-5.0); ALKALINE PHOSPHATASE 225 IU/L (46-116); ASPARTATE AMINO TRANSFERASE 42 U/L (10-37); BLOOD UREA NITROGEN 16 MG/DL (7-18); BUN/CREATININE RATIO 7.8 (6.6-38.0); CALCIUM 8.4 MG/DL (8.5-10.1); CHLORIDE 99 MMOL/L (99-107); CREATININE 2.04 MG/DL (0.40-0.90); ETHANOL < 0.010 GM/DL (0.0-0.010); LIPASE < 50 U/L (73-393); TOTAL CARBON DIOXIDE 25.5 MMOL/L (24-32); eGFR 27 ML/MIN
[2018-02-22] MEDS ORDERED: albumin (human) 25% 100ml IV 100 ML IV ONE (05:20)
[2018-02-22] MEDS ORDERED: proCHLORperazine 10 MG/2 ml inj IV ONE (05:40)
[2018-02-22 05:43] LABS: ALBUMIN/GLOBULIN RATIO 0.4 (1.1-1.5); POTASSIUM 4.4 MMOL/L (3.5-5.1); TOTAL PROTEIN 7.5 G/DL (6.4-8.2)
[2018-02-22 05:45] LABS: ANION GAP 10 (8-16); SODIUM 134 MMOL/L (135-145)
[2018-02-22 05:46] LABS: GLUCOSE 49 MG/DL (70-104)
[2018-02-22 05:49] LABS: LARGE PLATELETS FEW; PLATELET ESTIMATE NORMAL
[2018-02-22] MEDS ORDERED: dextrose ORAL solution 15 GM/59 ML bottle PO ONE ×2 (05:50)
[2018-02-22] MEDS ORDERED: dextrose 50%-water 50ml dispensing syringe IV ONE (05:55)
[2018-02-22] MEDS ORDERED: dexamethasone sod phosphate 10mg/ml inj IV STA (06:10)
[2018-02-22] MEDS: dextrose 50%-water 50ml dispensing syringe IV ONE ×2 (06:29→07:16)
[2018-02-22 08:37] VITALS: BP 105/67
== END 2018-02-22 09:30 | disposition home or self-care (01) ==
LOC: ER 04:13
DX: K70.31 Alcoholic cirrhosis of liver with ascites (principal); K72.10 Chronic hepatic failure without coma; E16.2 Hypoglycemia, unspecified; Z79.899 Other long term (current) drug therapy
CPT/HCPCS: 36415; 49083; 80053; 80320; 82140; 82948; 83690; 85025; 96365; 96375; 96376; 99285; J0780; J1100; J2270; J2405; J3490; P9047

== ENCOUNTER 2018-02-24 08:14 | Inpatient (IN) | payer MEDICAID ==
[~2018-02-24] VITALS: Ht 170.2 cm; Wt 56.8 kg
[2018-02-24] MEDS ORDERED: normal saline 1000ML IV soln IVB ONE (08:30)
[2018-02-24 09:09] LABS: BASOPHILS % (AUTO) 0.3 % (0-1); EOSINOPHILS # (AUTO) 0.1 X10'3 (0-0.9); EOSINOPHILS % (AUTO) 0.9 % (0-6); HEMATOCRIT 25.7 % (35.0-45.0); HEMOGLOBIN 8.3 g/dl (12.0-16.0); LYMPHOCYTES # (AUTO) 1.1 X10'3 (1.1-4.8); LYMPHOCYTES % (AUTO) 12.1 % (21-51); MEAN CORPUSCULAR HGB CONC 32.3 % (33.0-36.5); MEAN CORPUSCULAR VOLUME 101.9 FL (78-98); MEAN PLATELET VOLUME 10.7 FL (7.4-10.4); MONOCYTES # (AUTO) 0.9 X10'3 (0-0.9); MONOCYTES % (AUTO) 9.5 % (2-12); NEUTROPHILS # (AUTO) 7.1 X10'3 (1.8-7.7); NEUTROPHILS % (AUTO) 77.2 % (42-75); PLATELET COUNT 103 X10'3 (140-440); RED BLOOD COUNT 2.53 X10'6 (4.20-5.60); RED CELL DISTRIBUTION WIDTH 21.3 % (11.5-14.5); WHITE BLOOD COUNT 9.2 X10'3 (4.5-11.0)
[2018-02-24 09:14] LABS: INR 2.2 INR; PROTHROMBIN TIME 22.5 SECONDS (9.0-12.0)
[2018-02-24 09:19] LABS: LACTIC SEPSIS 1.9 MMOL/L (0.4-2.0)
[2018-02-24] MEDS ORDERED: dextrose 50%-water 50ml dispensing syringe IV ONE (09:25)
[2018-02-24 09:28] LABS: ALANINE AMINOTRANSFERASE 17 U/L (12-78); ALBUMIN 1.9 G/DL (3.4-5.0); ALBUMIN/GLOBULIN RATIO 0.4 (1.1-1.5); ALKALINE PHOSPHATASE 164 IU/L (46-116); ANION GAP 8 (8-16); ASPARTATE AMINO TRANSFERASE 25 U/L (10-37); BILIRUBIN,TOTAL 3.1 MG/DL (0.1-1.0); BLOOD UREA NITROGEN 13 MG/DL (7-18); BUN/CREATININE RATIO 6.3 (6.6-38.0); CALCIUM 8.2 MG/DL (8.5-10.1); CHLORIDE 102 MMOL/L (99-107); CREATININE 2.06 MG/DL (0.40-0.90); GLUCOSE 117 MG/DL (70-104); SODIUM 138 MMOL/L (135-145); TOTAL CARBON DIOXIDE 28.3 MMOL/L (24-32); TOTAL PROTEIN 6.2 G/DL (6.4-8.2); eGFR 26 ML/MIN
[2018-02-24 09:31] LABS: PLATELET ESTIMATE DECREASED; TOTAL CELLS COUNTED 100
[2018-02-24 09:32] LABS: LARGE PLATELETS FEW; MAGNESIUM 1.7 MG/DL (1.5-2.4)
[2018-02-24 09:33] LABS: HYPOCHROMASIA 1+; TARGET CELLS 1+
[2018-02-24 09:34] LABS: ETHANOL < 0.010 GM/DL (0.0-0.010); POTASSIUM 4.4 MMOL/L (3.5-5.1)
[2018-02-24] MEDS ORDERED: ondansetron/PF 4mg/2ml inj IV PRN (09:55)
[2018-02-24] MEDS ORDERED: morphine 2 MG/ML inj. syringe IV PRN (09:55)
[2018-02-24] MEDS: sodium chloride inj. 154 MEQ in Dextrose 10%-water IV solution 961.5 ML IV SCH (10:17)
[2018-02-24 10:22] LABS: CLARITY,URINE SLIGHTLY CLOUDY (Clear); COLOR,URINE AMBER (Yellow); GLUCOSE, URINE NEGATIVE (Neg); KETONES,URINE NEGATIVE (Neg); LEUKOCYTE ESTERASE ,URINE SMALL (Neg); NITRITES, URINE POSITIVE (Neg); OCCULT BLOOD,URINE NEGATIVE (Neg); PROTEIN,URINE 30 mg/dl (Neg)
[2018-02-24 10:25] LABS: UA COLLECTION TYPE FOLEY CATH
[2018-02-24 10:33] LABS: RBC,URINE NONE SEEN /HPF (0-2); WBC,URINE 50-100 /HPF (0-4)
[2018-02-24 10:34] LABS: BACTERIA,URINE 1+ /HPF (Neg); SQUAMOUS EPITHELIAL CELL,UR FEW /LPF (FEW); URINE AMPHETAMINE SCREEN NEGATIVE (Neg); URINE BARBITUATE SCREEN NEGATIVE (Neg); URINE BENZODIAZEPINES SCREEN NEGATIVE (Neg); URINE CANNABINOID SCREEN POSITIVE (Neg); URINE COCAINE SCREEN NEGATIVE (Neg); URINE METHADONE SCREEN NEGATIVE (Neg); URINE OPIATE SCREEN POSITIVE (Neg); URINE PHENCYCLIDINE SCREEN NEGATIVE (Neg); YEAST MANY /HPF (NEGATIVE)
[2018-02-24] MEDS ORDERED: ondansetron 4mg rapidly disintigrating tab PO PRN (11:20)
[2018-02-24] MEDS: lactulose 20gm/30ml cup PO SCH ×4 (12:36→20:34)
[2018-02-24] MEDS: traMADol 50MG tablet PO SCH ×2 (14:00→20:33)
[2018-02-24] MEDS: levoFLOXACIN-Levaquin 250mg/D5 50 ML IV SCH (14:59)
[2018-02-24 15:27] VITALS: BP 95/59
[2018-02-24] MEDS ORDERED: non-formulary drug (Ondansetron HCl 1 TAB) PO SCH (16:00)
[2018-02-24] MEDS: folic acid 1mg tablet PO SCH (17:04)
[2018-02-24] MEDS: LIDOcaine 5% patch TP SCH (17:05)
[2018-02-24 19:00] VITALS: BP 102/54
[2018-02-24 20:00] VITALS: BP 93/59
[2018-02-24] MEDS ORDERED: non-formulary drug (Famotidine 1 TAB) PO SCH (20:00)
[2018-02-24] MEDS: propranolol 10mg tablet PO SCH (20:00)
[2018-02-24] MEDS ORDERED: non-formulary drug (Buspirone Hcl* (Buspar*) 1 TAB) PO SCH (20:00)
[2018-02-24] MEDS: docusate sod 100mg capsule PO SCH (20:00)
[2018-02-24] MEDS: rifaximin 550mg tablet PO SCH (20:32)
[2018-02-24] MEDS: spironolactone 25 MG tablet PO SCH (20:33)
[2018-02-24] MEDS: busPIRone 5mg tablet PO SCH (20:33)
[2018-02-24] MEDS: famotidine 20mg tablet PO SCH (20:33)
[2018-02-24 21:00] VITALS: BP 91/57
[2018-02-24 22:00] VITALS: BP 79/58
[2018-02-24 23:00] VITALS: BP 84/58
[2018-02-25] VITALS (20 sets, daily range): BP systolic 83–120; BP diastolic 48–70
[2018-02-25] MEDS: traMADol 50MG tablet PO SCH ×4 (02:35→20:19)
[2018-02-25] MEDS: sodium chloride inj. 154 MEQ in Dextrose 10%-water IV solution 961.5 ML IV SCH (04:01)
[2018-02-25 05:45] LABS: BASOPHILS % (AUTO) 0.2 % (0-1); EOSINOPHILS % (AUTO) 0.4 % (0-6); HEMATOCRIT 25.1 % (35.0-45.0); HEMOGLOBIN 8.2 g/dl (12.0-16.0); LYMPHOCYTES % (AUTO) 17.8 % (21-51); MEAN CORPUSCULAR HEMOGLOBIN 33.1 PG (27.0-31.0); MEAN CORPUSCULAR HGB CONC 32.8 % (33.0-36.5); MEAN CORPUSCULAR VOLUME 100.8 FL (78-98); MEAN PLATELET VOLUME 11.5 FL (7.4-10.4); MONOCYTES % (AUTO) 8.8 % (2-12); NEUTROPHILS # (AUTO) 8.1 X10'3 (1.8-7.7); NEUTROPHILS % (AUTO) 72.8 % (42-75); PLATELET COUNT 112 X10'3 (140-440); RED BLOOD COUNT 2.49 X10'6 (4.20-5.60); RED CELL DISTRIBUTION WIDTH 21.3 % (11.5-14.5); WHITE BLOOD COUNT 11.2 X10'3 (4.5-11.0)
[2018-02-25 06:13] LABS: ALANINE AMINOTRANSFERASE 14 U/L (12-78); ALBUMIN 1.8 G/DL (3.4-5.0); ALBUMIN/GLOBULIN RATIO 0.4 (1.1-1.5); ALKALINE PHOSPHATASE 150 IU/L (46-116); ANION GAP 11 (8-16); ASPARTATE AMINO TRANSFERASE 22 U/L (10-37); BILIRUBIN,TOTAL 2.7 MG/DL (0.1-1.0); BLOOD UREA NITROGEN 15 MG/DL (7-18); BUN/CREATININE RATIO 5.7 (6.6-38.0); CHLORIDE 106 MMOL/L (99-107); CREATININE 2.61 MG/DL (0.40-0.90); GLUCOSE 102 MG/DL (70-104); MAGNESIUM 1.5 MG/DL (1.5-2.4); PHOSPHORUS 4.3 MG/DL (2.3-4.5); POTASSIUM 4.3 MMOL/L (3.5-5.1); SODIUM 142 MMOL/L (135-145); TOTAL CARBON DIOXIDE 25.3 MMOL/L (24-32); TOTAL PROTEIN 6.1 G/DL (6.4-8.2); eGFR 20 ML/MIN
[2018-02-25 06:49] LABS: HYPOCHROMASIA 1+; LARGE PLATELETS FEW; PLATELET ESTIMATE DECREASED
[2018-02-25 06:50] LABS: ANISOCYTOSIS 3+; TARGET CELLS 1+
[2018-02-25] MEDS ORDERED: normal saline 1000ml 100 ML IV PRN (08:00)
[2018-02-25] MEDS ORDERED: heparin 1,000 units/ml 10ml inj HE ONE ×2 (08:00)
[2018-02-25] MEDS: lactulose 20gm/30ml cup PO SCH ×5 (08:00→20:19)
[2018-02-25] MEDS: LIDOcaine 5% patch TP SCH (08:00)
[2018-02-25] MEDS ORDERED: epoetin 20,000 units/ml inj IV ONE (08:00)
[2018-02-25] MEDS: docusate sod 100mg capsule PO SCH ×2 (08:00→20:19)
[2018-02-25] MEDS ORDERED: non-formulary drug (Levothyroxine Sodium (Levoxyl) 1 TAB) PO SCH (08:00)
[2018-02-25] MEDS: propranolol 10mg tablet PO SCH ×2 (08:00→20:19)
[2018-02-25] MEDS ORDERED: non-formulary drug (Vit B Cmplx 3/FA/Vit C/Biotin (Rena-Vite Rx Tablet) 1 TAB) PO SCH (08:00)
[2018-02-25] MEDS ORDERED: normal saline 1000ml 250 ML IV PRN (08:00)
[2018-02-25] MEDS: folic acid/vitamin B complex w/vitamin C 0.8mg tablet PO SCH (08:20)
[2018-02-25] MEDS: busPIRone 5mg tablet PO SCH ×2 (08:20→20:18)
[2018-02-25] MEDS: rifaximin 550mg tablet PO SCH ×2 (08:20→20:18)
[2018-02-25] MEDS: levoFLOXACIN-Levaquin 250mg/D5 50 ML IV SCH (08:21)
[2018-02-25] MEDS: folic acid 1mg tablet PO SCH (08:21)
[2018-02-25] MEDS: spironolactone 25 MG tablet PO SCH ×2 (08:21→20:00)
[2018-02-25] MEDS: famotidine 20mg tablet PO SCH ×2 (08:21→20:19)
[2018-02-25] MEDS: levoTHYROXINE 25mcg tablet PO SCH (08:21)
[2018-02-25] MEDS ORDERED: magnesium 1gm/100ml D5W IVPB 100 ML IV ONE (18:20)
[2018-02-25] MEDS ORDERED: midodrine 5mg tablet PO PRN (18:20)
[2018-02-25] MEDS ORDERED: midodrine 5mg tablet PO ONE (18:20)
[2018-02-26] VITALS (24 sets, daily range): BP systolic 64–103; BP diastolic 32–64
[2018-02-26] MEDS: sodium chloride inj. 154 MEQ in Dextrose 10%-water IV solution 961.5 ML IV SCH ×2 (02:14→22:09)
[2018-02-26] MEDS: traMADol 50MG tablet PO SCH ×4 (02:14→20:00)
[2018-02-26 05:18] LABS: ALANINE AMINOTRANSFERASE 13 U/L (12-78); ALBUMIN 1.8 G/DL (3.4-5.0); ALKALINE PHOSPHATASE 166 IU/L (46-116); ANION GAP 9 (8-16); ASPARTATE AMINO TRANSFERASE 30 U/L (10-37); BILIRUBIN,TOTAL 3.1 MG/DL (0.1-1.0); BLOOD UREA NITROGEN 8 MG/DL (7-18); BUN/CREATININE RATIO 4.4 (6.6-38.0); CALCIUM 8.1 MG/DL (8.5-10.1); CHLORIDE 105 MMOL/L (99-107); CREATININE 1.82 MG/DL (0.40-0.90); GLUCOSE 83 MG/DL (70-104); MAGNESIUM 1.8 MG/DL (1.5-2.4); SODIUM 139 MMOL/L (135-145); TOTAL CARBON DIOXIDE 24.8 MMOL/L (24-32); eGFR 30 ML/MIN
[2018-02-26 05:20] LABS: PHOSPHORUS 2.7 MG/DL (2.3-4.5); POTASSIUM 4.4 MMOL/L (3.5-5.1); TOTAL PROTEIN 6.5 G/DL (6.4-8.2)
[2018-02-26 05:21] LABS: ALBUMIN/GLOBULIN RATIO 0.4 (1.1-1.5)
[2018-02-26] MEDS ORDERED: albumin (human) 25% 100ml IV 100 ML IV ONE (05:45)
[2018-02-26] MEDS: lactulose 20gm/30ml cup PO SCH ×5 (08:00→21:00)
[2018-02-26] MEDS: docusate sod 100mg capsule PO SCH ×2 (08:00→20:00)
[2018-02-26 08:38] LABS: BASOPHILS % (AUTO) 0.2 % (0-1); EOSINOPHILS % (AUTO) 0.1 % (0-6); HEMATOCRIT 25.3 % (35.0-45.0); HEMOGLOBIN 8.2 g/dl (12.0-16.0); LYMPHOCYTES # (AUTO) 1.7 X10'3 (1.1-4.8); LYMPHOCYTES % (AUTO) 10.8 % (21-51); MEAN CORPUSCULAR HEMOGLOBIN 33.2 PG (27.0-31.0); MEAN CORPUSCULAR HGB CONC 32.6 % (33.0-36.5); MEAN CORPUSCULAR VOLUME 101.8 FL (78-98); MEAN PLATELET VOLUME 11.9 FL (7.4-10.4); MONOCYTES # (AUTO) 0.8 X10'3 (0-0.9); MONOCYTES % (AUTO) 5.3 % (2-12); NEUTROPHILS # (AUTO) 13.1 X10'3 (1.8-7.7); NEUTROPHILS % (AUTO) 83.6 % (42-75); PLATELET COUNT 69 X10'3 (140-440); RED BLOOD COUNT 2.48 X10'6 (4.20-5.60); RED CELL DISTRIBUTION WIDTH 19.9 % (11.5-14.5); WHITE BLOOD COUNT 15.7 X10'3 (4.5-11.0)
[2018-02-26] MEDS: spironolactone 25 MG tablet PO SCH ×2 (08:53→20:00)
[2018-02-26] MEDS: rifaximin 550mg tablet PO SCH ×2 (08:53→20:00)
[2018-02-26] MEDS: famotidine 20mg tablet PO SCH ×2 (08:54→20:00)
[2018-02-26] MEDS: folic acid/vitamin B complex w/vitamin C 0.8mg tablet PO SCH (08:54)
[2018-02-26] MEDS: propranolol 10mg tablet PO SCH ×2 (08:54→20:00)
[2018-02-26] MEDS: busPIRone 5mg tablet PO SCH ×2 (08:54→20:00)
[2018-02-26] MEDS: midodrine 5mg tablet PO SCH ×3 (08:54→20:00)
[2018-02-26] MEDS: levoFLOXACIN-Levaquin 250mg/D5 50 ML IV SCH (08:56)
[2018-02-26] MEDS: LIDOcaine 5% patch TP SCH (08:56)
[2018-02-26] MEDS: folic acid 1mg tablet PO SCH (08:59)
[2018-02-26] MEDS: levoTHYROXINE 25mcg tablet PO SCH (08:59)
[2018-02-26 10:03] LABS: TOTAL CELLS COUNTED 100
[2018-02-26 10:09] LABS: GIANT PLATELET FEW; LARGE PLATELETS FEW
[2018-02-26 10:11] LABS: ANISOCYTOSIS 3+; PLATELET ESTIMATE DECREASED
[2018-02-26 10:13] LABS: POIKILOCYTOSIS 1+; POLYCHROMASIA FEW; TARGET CELLS 1+
[2018-02-26] MEDS ORDERED: LORazepam 2 mg/ml vial IV PRN (11:55)
[2018-02-26] MEDS: morphine 4 MG/ML inj SYRINge IV PRN ×2 (12:01→16:46)
[2018-02-27] VITALS (7 sets, daily range): BP systolic 49–68; BP diastolic 32–43
[2018-02-27] MEDS: midodrine 5mg tablet PO SCH (02:00)
[2018-02-27] MEDS: traMADol 50MG tablet PO SCH (02:00)
[2018-02-27] MEDS: levoTHYROXINE 25mcg tablet PO SCH (07:00)
[2018-02-27] MEDS: levoFLOXACIN-Levaquin 250mg/D5 50 ML IV SCH (07:26)
[2018-02-27] MEDS: docusate sod 100mg capsule PO SCH (07:27)
[2018-02-27] MEDS: busPIRone 5mg tablet PO SCH (07:27)
[2018-02-27] MEDS: spironolactone 25 MG tablet PO SCH (07:27)
[2018-02-27] MEDS: propranolol 10mg tablet PO SCH (07:27)
[2018-02-27] MEDS: folic acid 1mg tablet PO SCH (07:27)
[2018-02-27] MEDS: lactulose 20gm/30ml cup PO SCH ×2 (07:27)
== END 2018-02-27 06:11 | disposition expired | DRG 280 ==
LOC: ER 08:15 → ED HOLD 09:52 → EDBEDREQ 11:16 → CICU 2S 13:38
PROVIDERS: ADMIT Internal Medicine Critical Care Medicine; ATTEND Internal Medicine Critical Care Medicine
PROC: 5A1D70Z Performance of Urinary Filtration, Intermittent, Less than 6 Hours Per Day (ICD-10-PCS; 2018-02-25)
PROC: 5A09357 Assistance with Respiratory Ventilation, Less than 24 Consecutive Hours, Continuous Positive Airway Pressure (ICD-10-PCS; principal; 2018-02-26)
DX: K70.31 Alcoholic cirrhosis of liver with ascites (principal); E43 Unspecified severe protein-calorie malnutrition; K72.90 Hepatic failure, unspecified without coma; I95.9 Hypotension, unspecified; N17.9 Acute kidney failure, unspecified; K76.6 Portal hypertension; I46.9 Cardiac arrest, cause unspecified; E16.2 Hypoglycemia, unspecified; N18.9 Chronic kidney disease, unspecified; N39.0 Urinary tract infection, site not specified; Z51.5 Encounter for palliative care; Z98.84 Bariatric surgery status; Z99.2 Dependence on renal dialysis; Z79.899 Other long term (current) drug therapy; Z68.1 Body mass index [BMI] 19.9 or less, adult
CPT/HCPCS: 36415; 70450; 71045; 80053; 80305; 80320; 81001; 82140; 82948; 83605; 83735; 84100; 84443; 84484; 85025; 85610; 87040; 87070; 87077; 87088; 87186; 93005; 94660; 94760; 96374; 99291; G0257; J0885; J1644; J1956; J2060; J2270; J7131; P9047